=== PATIENT | female | born 2000 | race Caucasian/White ===

== ENCOUNTER 2021-12-21 18:45 | Emergency (ER) | payer OTHER, SELFPAY ==
--- NOTE | ~2021-12-21 | XR_ITS ---
EXAMINATION: XR foot RT min 3V DATE: 12/21/2021 19:10 INDICATION: Right foot pain TECHNIQUE: Dorsoplantar, lateral, and 2 oblique views of the right foot were obtained. COMPARISON: None. FINDINGS: There is no fracture, dislocation, or subluxation. The bones, soft tissues, and joint space s are normal. IMPRESSION: 1. No acute osseous abnormality. Reviewed, dictated and finalized at location F.
[2021-12-21 19:02] VITALS: BP 134/78; PULSE 82; RESP 18; TEMP 36.3; O2SAT 100
--- NOTE | 2021-12-21 19:21 | ED.LOWEXIN ---
HPI - Extremity Injury (Lower) General Chief Complaint: Extremity Injury, Lower Stated Complaint: rt foot injury Time Seen by Provider: 12/21/21 19:10 Source: patient, RN notes reviewed and old records reviewed Mode of arrival: ambulatory Limitations: no limitations History of Present Illness HPI Narrative: 21-year-old female who presents to [facility] with complaints of injury to her right foot which occurred on Monday while playing soccer. Patient reports she was playing in a coed league and was stepped on by a male participant. Patient has bruising and swelling to the anterior right foot along the first metatarsal area. Patient has taken Tylenol and ibuprofen and has been applying ice to her foot. Continues to have pain especially with ambulation with mild pain at rest MD complaint: foot injury (right) Type of Injury: blunt Place: street/outdoors Severity: moderate Exacerbating factors: weight bearing Context: direct blow Associated symptoms: swelling and able to partially bear weight Treatments prior to arrival: cold therapy and NSAIDS Related Data Home Medications Medication Instructions Recorded Confirmed No Home Medications 12/21/21 12/21/21 Allergies Allergy/AdvReac Type Severity Reaction Status Date / Time No Known Allergies Allergy Verified 12/21/21 19:12 Review of Systems Review of Systems: CONSTITUTIONAL: Denies fever, chills, or sweats. EYES: Denies visual changes, redness, or discharge. ENT: Denies rhinorrhea, congestion, sore throat, or otalgia. CARDIOVASCULAR: Denies chest pain, palpitations, or edema. RESPIRATORY: Denies cough or dyspnea. GASTROINTESTINAL: Denies abdominal pain, nausea, vomiting, or diarrhea. GENITOURINARY: Denies dysuria or hematuria. SKIN: Denies rash or itching. MUSCULOSKELETAL: Denies back pain, positive for right foot pain with swelling and bruising, or myalgia. NEUROLOGIC: Denies headache, numbness, or weakness. PSYCHIATRIC: Denies anxiety or depression. All systems reviewed & are unremarkable except as noted in HPI and below [facility] Past Medical History Medical History (Updated 12/22/21 @ 00:21 by Malika Arzola NP) Hx of migraines Social History Social History (Updated 12/22/21 @ 00:21 by Malika Arzola NP) Smoking status: Never smoker Alcohol intake: current Alcohol use details: rare Substance use: never Living arrangements: with family Occupation/Education: student Gender identity (if verbalized by the patient): Female Exam Narrative: GENERAL: Well-appearing, well-nourished, and in no acute distress. HEAD: Normocephalic, atraumatic. EYES: PERRLA and EOMI.no epistaxis. Mucous membranes moist. TMs normal with good light reflex throat pink with no lesions or exudates no tonsillar swelling NECK: Supple. No lymphadenopathy CHEST: Clear to auscultation. No acute respiratory distress. [id number] on room air HEART: Regular rate and rhythm. No murmur heard. Normal peripheral pulses. ABDOMEN: Soft, nontender, nondistended, normal active bowel sounds. EXTREMITIES: Normal range of motion. No edema.Exception noted to right dorsal distal foot along 1st metatarsal with bruising and swelling present. strong pulses to right foot withsensation intact, pain with weight beaing SKIN: Warm, dry, no rash. NEURO: No focal deficits. Alert and oriented x3. Course Course Level of Care: Express Care Visit Vital Signs Vital signs: Vital Signs Temperature 36.3 C L 12/21/21 19:02 Pulse Rate 82 12/21/21 19:02 Respiratory Rate 18 12/21/21 19:02 Blood Pressure 134/78 12/21/21 19:02 Pulse Oximetry 100 12/21/21 19:02 Temperature 36.3 C L 12/21/21 19:02 Pulse Rate 82 12/21/21 19:02 Respiratory Rate 18 12/21/21 19:02 Blood Pressure 134/78 12/21/21 19:02 Pulse Oximetry 100 12/21/21 19:02 MDM - Extremity Injury (Lower) Differential Diagnosis Differential diagnosis: Likely ankle sprain and strain, fracture of toe and other (foot
== END 2021-12-21 19:50 | disposition home or self-care (01) ==
PROVIDERS: Emergency Provider Registered Nurse
DX: S90.31XA Contusion of right foot, initial encounter (principal); W50.0XXA Accidental hit or strike by another person, initial encounter; Y93.66 Activity, soccer
CPT/HCPCS: 73630; 99213; G0463

== ENCOUNTER 2025-03-23 17:40 | Emergency (ER) | payer BC, SELFPAY ==
--- NOTE | 2025-03-23 17:42 | ED_ITS ---
HPI - Dental/Oral General Chief complaint: Dental/Oral Stated complaint: tooth infection Time Seen by Provider: 03/23/25 17:42 Source: patient Mode of arrival: ambulatory Limitations: no limitations History of Present Illness HPI Narrative: Patient is a 24-year-old female who presents with left upper dental pain. Patient had decision ointment 3 days ago and was told she needed a root canal. Since then she has had increased pain along with fever and facial swelling and is concerned for infection. Patient has been alternating Tylenol and ibuprofen and icing face. Patient is going to call dentist in the morning. Root canal is set for April 18 Related Data Home Medications ?Medication ?Instructions ?Recorded ?Confirmed ?Last Taken ?Type rimegepant 75 mg disintegrating mg 03/23/25 Unknown History tablet (Nurtec ODT) Allergies Allergy/AdvReac Type Severity Reaction Status Date / Time No Known Allergies Allergy Verified 03/23/25 17:43 Review of Systems 2 Review of Systems: All systems reviewed & are unremarkable except as noted in HPI and below Constitutional: Constitutional: Denies body ache(s), Denies fever(s), Denies headache(s), Denies malaise and Denies weakness Eyes: Eyes: Denies loss of vision ENT: Denies otalgia, Reports facial pain (jaw), Denies headache(s), Denies nasal discharge, Denies sinus pain and Denies sore throat Cardiovascular: Cardiovascular: Denies chest pain, Denies irregular heart rhythm and Denies dyspnea Respiratory: Respiratory: Denies dyspnea Gastrointestinal: Gastrointestinal: Denies abdominal pain, Denies melena, Denies hematochezia, Denies diarrhea, Denies nausea and Denies vomiting Musculoskeletal: Musculoskeletal: Denies back pain, Denies myalgias and Denies arthralgias Integumentary/Breasts: Skin/Breast: Denies pruritus and Denies rash Neurologic: Denies headache(s), Denies loss of vision and Denies weakness Psychiatric: Psychiatric: Reports no additional psychiatric complaints PMFSH Past Medical History Medical History Hx of migraines Social History Social History Smoking status: Never smoker Alcohol intake: current Alcohol use details: rare Substance use: never Living arrangements: with family Occupation/Education: student Gender identity (if verbalized by the patient): Female Comments At time of signature, agree with nursing past medical, surgical, social and family history. There is no relevant family history pertinent to the presenting complaint. Exam 2 Const: General: cooperative, healthy appearing, comfortable, no acute distress and well nourished Nutritional Appearance: well nourished O rientation/consciousness: patient oriented x3 Limitations: no limitations HENMT: Head: normal to inspection, normocephalic and atraumatic Ears: h earing grossly normal bilaterally, external ears normal, TM's normal bilaterally and mastoids normal bilaterally Face/Nose/Sinus: Normal external nose present, normal facial exam and face symmetric Face and sinus: normal facial exam and face symmetric Mouth: Yes Normal oral and palatal mucosa present, Yes lip normal, Yes tongue normal, Yes Normal salivary glands and ducts present and Yes moist mucous membranes Teeth and gingiva: dentition normal and abnormal tooth and associated gingiva upper left first molar tender and with associated gingival edema Teeth image: 1. Tenderness on tooth, needing root canal. Other: The tooth in question is very carious and the gum is swollen and tender around it. There is no facial swelling, cervical or submandibular lymphadenopathy. The patient appears uncomfortable and in pain. Eyes: General: appearance normal, both eyes and all related structures A lignment and Position: alignment normal and position normal Periorbital: p eriorbital findings normal Eyelids: eyelids normal Pupils: Equal, round and reactive pupils present EOM: EOMs intact bilaterally Neck: Neck: normal visual inspection, full ROM, no lymphadenopathy and supple Chest: Chest palpation & inspection: normal inspection of the chest Resp: Effort & Inspection: normal respiratory effort and able to speak in complete sentences Auscultation: clear to auscultation bilaterally Cardio: Rate: regular rate Rhythm: regular rhythm Heart sounds: S1 normal heart sound present and S2 normal heart sound present GI: Inspection: normal to inspection Skin: General skin exam: normal color and no rashes or lesions noted Neuro: General: patient oriented x3 and moves all extremities Cranial nerves: Yes Equal, round and reactive pupils present Speech: normal speech Gait exam (Neuro): Normal gait present Extrem: General: normal to inspection, full ROM and no edema Psych: Appearance: grossly normal and well kempt Mental Status: mental status grossly normal Speech and movement: Normal speech and movement present Affect: normal affect Attitude: cooperative Thought process: Normal thought process present Course Course Emergency Course: Patient is aware of diagnosis, understands and agrees to treatment plan. Anticipatory guidance given. Patient agrees to follow-up as directed and is aware of reasons to seek care at the emergency department. Portions of this record may have been created with voice recognition software Level of Care: Express Care Visit Vital Signs Vital signs: Vital Signs Temperature 35.9 C L 03/23/25 17:53 Pulse Rate 98 03/23/25 17:53 Respiratory Rate 18 03/23/25 17:53 Blood Pressure 109/78 03/23/25 17:53 Pulse Oximetry 98 03/23/25 17:53 Oxygen Delivery Room Air 03/23/25 17:53 Temperature 35.9 C L 03/23/25 17:53 Pulse Rate 98 03/23/25 17:53 Respiratory Rate 18 03/23/25 17:53 Blood Pressure 109/78 03/23/25 17:53 Pulse Oximetry 98 03/23/25 17:53 Oxygen Delivery Room Air 03/23/25 17:53 Reviewed MDM - Dental/Oral MDM Narrative Medical decision making narrative: Patients pain and complaint coupled with physical findings are consistant with dentalgia. There are no focal signs of space occupying lesions that are compromising to the airway; no dysphagia, odynophagia, dysphonia, or dyspnea. No uvular deviation or soft palate edema. Patient is non-toxic appearing. The floor of the mouth is soft with no signs of Conner's Angina; no induration below mandible, no neck pain. Patient is without trismus or drooling and able to swallow secretions. Patient is felt appropriate for discharge home with dental follow up. Patient is breast-feeding and will prescribe Augmentin as it is safe for Differential Diagnosis Differential diagnosis: Likely dental caries, toothache and dental abscess Medical Records Attestation: I reviewed the patient's medical records. Discharge Plan Discharge Clinical Impression: Dental abscess Patient Disposition: Home Condition: Stable Instructions: Dental Abscess (ED) Additional Instructions: Take antibiotic until it's gone. Brushing teeth at least twice daily with gentle flossing. Avoid temperature extremes---when you eat. Salt gargle to rinse your mouth after every meal You may apply ice to the face to reduce pain/swelling. For pain, you may take: Tylenol 650-1000mg by mouth every 4-6 hours. Do not exceed 4000mg in 24 hours. Advil (Ibuprofen) 600 mg by mouth every 6 hours. Do not exceed 2400mg in 24 hours. Also, recommend regular dental check up one-two times a year to prevent tooth decay and other periodontal disease. Follow-up with the dentist as soon as possible--see the list provided Patient Language: Slovenian Prescriptions: New amoxicillin-pot clavulanate 875-125 mg tablet 1 tablet PO Q12H 14 Days Qty: 28 0RF No Action Nurtec ODT 75 mg tablet,disintegrating Follow-up/Referrals: Lizzy,Ara Browning NP [Primary Care Provider] - Stand Alone Forms: Work/School Release IP Time of Disposition: 18:03
--- OUTSIDE RECORDS SUMMARY | 2025-03-23 17:43 | XMS_ITS | Clinical Summary ---
Author Organization [facility] Address [facility] [place] [address] Care Team Providers Care Nurse Intern Name Role Phone Ara Ball Primary Care Provider [phone] Allergies Active Allergy Reactions Criticality Noted Date Comments Dhea Other (see comment) 10/28/2016 hemiplegic migraine Flavoring Agent Headache Medium 01/10/2022 Sumatriptan Other (see comment) Low 10/28/2016 Medications rimegepant (NURTEC) 75 MG disintegrating tabletIndications:O ther migraine with status migrainosus, intractable Take 1 table at onset of migraine (max dose 1 tab/24 hours) 16 tablet 3 3 Active Active Problems Problem Noted Date Diagnosed Date Adverse effect of vaccine, subsequent encounter 11/13/2020 Hemiplegic migraine without status migrainosus, not intractable 11/07/2016 Family history of long QT syndrome 11/19/2015 Abnormal finding on MRI of brain 11/01/2012 Resolved Problems Problem Noted Date Diagnosed Date Resolved Date Myocarditis ([facility]) 11/09/2020 01/10/2022 Migraine headache 09/04/2013 01/10/2022 Transient alteration of awareness 09/04/2013 01/10/2022 Migraine without aura and wi thout status migrainosus, not intractable 10/29/2012 01/10/2022 Encounters Date Type Department Care Team Description 03/11/2025 Telephone [facility] Family and Sports Medicine - [place] [facility] [place] [address] Ara Ball APNP COVID-19 02/25/2025 Scan [facility] SRV[facility] Scanned, [facility] 02/24/2025 Scan [facility] INFO SRVCS Scanned, Doc [facility] 01/13/2025 Scan [facility] INFO SRVCS Scanned, Doc [facility] 01/07/2025 Scan [facility] INFO SRVCS Scanned, Doc [facility] 01/03/2025 Scan [facility] INFO SRVCS Scanned, Doc [facility] from Last 3 Months Immunizations Immunization Administration Dates Next Due Flucelvax 6 Months+ (Prefilled Syringe) 07/31/20 19 Influenza (Generic) 07/09/2020,05/28/2020 MODERNA COVID-19 (12+) MRNA, LNP-S, PF, 100 MCG/ 0.5 ML DOSE 11/04/2020,10/07/2020 Tdap (Adacel) 01/10/2022 Family History Medical History Relation Comments None Father Breast Cancer Maternal Grandmother None Mother Relation Status Comments Father Maternal Grandmother Mother Social History Tobacco Use Types Packs/Day Years Used Date Smoking Tobacco: Never Smokeless Tobacco: Never Tobacco Cessation:Counseling Given: No Alcohol Use Standard Drinks/Week Comments No 0 (1 standard drink = 0.6 oz pur e alcohol) AUDIT-C Answer Date Recorded Frequency of Alcohol Consumption Never 08/08/2018 Average Number of Drinks Not on file Frequency of Binge Drinking Not on file 07/28 PHQ-2 Answer Date Recorded Patient Health Questionnaire-2 Score 0 03/14/2023 Comments No Sex and Gender Information Value Date Recorded Sex Assigned at Not on file Legal Sex Female 1:53 AM [place] MAN Gender Identity Not on file Sexual Orientation Not on file Last Filed Vital Signs Vital Sign Reading Time Taken Comments Blood Pressure 129/86 03/14/2023 8:45 AM CDT Pulse 66 03/14/2023 8:45 AM CDT Temperature 36.6 C (97.9 F) 03/14/2023 8:45 AM CDT Respiratory Rate 21 03/14/2023 8:45 AM CDT Oxygen Saturation 100% 03/14/2023 8:45 AM CDT Inhaled Oxygen Concentration - - Weight 63.5 kg (140 lb) 03/14/2023 8:45 AM CDT Height 157.5 cm (5' 2) 03/14/2023 8:45 AM CDT Body Mass Index 25.61 03/14/2023 8:45 AM CDT Plan of Treatment Upcoming Encounters Date Type Department Care Team (Late st Contact Info) Description 04/11/2025 9:00 AM CDT Office Visit [facility] Family and Sports Medicine - [place] [address] [place] [address] Ara Ball APNP [address] [place] [address] Health Maintenance Due Date Last Done Comments HPV Vaccines (1 - 3-dose series) 2014 Hepatitis B Vaccines (1 of 3 - 19+ 3-dose series) 2018 Annual Physical 03/14/2024 03/14/2023, 01/10/2022, 11/13/2020 COVID-19 Vaccine (3 - 2023-2 5 season) 2024 11/04/2020, 10/07/2020 Cervical Cancer Screening Pa p Smear (Age 21 to 29) Every 3 Years 06/30/2024 06/30/2021 Cervical Cancer Screening 06/30/2024 PHQ-2 (Physician [place]) 08/28/2024 03/14/2023 DTaP, Tdap and Td Vaccines ( 2 - Td or Tdap) 01/11/2032 01/10/2022 Hepatitis C Completed 01/10/2022 Meningococcal B Vaccine Aged Out No l onger eligible based on patient's age to complete this topic Meningococcal Vaccine Aged Out No sb chanda eligible based on patient's age to complete this topic Pneumococcal Vaccine: Pediatrics (0 to 5 Years) and At-Risk Patients (6 to 49 Years) Aged Out No longer eligible b ased on patient's age to complete this topic RSV Immunizations Under 20 Months Aged Out No longer eligible b ased on patient's age to complete this topic Procedures Procedure Name Priority Date/Time Associated Diagnosis Comments HEPATITIS C ANTIBODY Routine 01/10/2022 3:22 PM CDT Need for hepatitis C screening test OUTSIDE [facility] CERV/VAG INTERPRET (PAP) (SCAN ORDER) 06/30/2021 from Last 3 Months or Most Recently Relevant to Health Maintenance Results * HEPATITIS C ANTIBODY (01/10/2022 3:22 PM CDT) HEPATITIS C AB NON-REACTI VE NON-REACT LENA 01/11/2022 3:11 PM CDT [facility] Comment: ANTIBODIES TO HCV NOT DETECTED. DOES NOT EXCLUDE THE POSSIBILITY OF EXPOSURE TO HCV. 01/10/2022 3:22 PM CDT [facility] Final Result [facility] [address] [place] [address], [id number] * PAP SMEAR (06/30/2021) 06/30/2021 Narrative 06/30/2021 Ordered by an unspecified provider. us Documents Scanned SCANNING Final Result from Last 3 Months or Most Recently Relevant to Health Maintenance Insurance Care Teams Nurse Intern Relationship Specialty Start Date End Date Ara Ball APNP [address] [place] [address] PCP - General NURSE PRACTITIONER 11/10/20
--- OUTSIDE RECORDS SUMMARY | 2025-03-23 17:44 | XMS_ITS | Clinical Summary ---
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 Patient has never taken this for that reason. Sumatriptan Other (See comments) Low 10/28/2016 Medications vit D3-vit E-znxuhafab-ur ps [id number] dbzh-dbh-zb-mg tablet Take by mouth Active vit 82-zaxm-rqjty- dha 27mg iron- 800 mcg-250 mg capsule Take by mouth Active vitamin A04-lhvqn acid 0.5-1 mg tablet Take by mouth daily Active acetaminophen (TYLENOL) 325 mg tablet Take 2 tablets (650 mg total) by mouth every 6 (six) hours as needed for pain 90 tablet 03/05/20 25 Active ibuprofen (ADVIL,MOTRIN) 600 mg tabletIndicati ons:Cramps Take 1 tablet (600 mg total) by mouth every 6 (six) hours as needed for pain 60 tablet 03/05/20 25 Active rimegepant (NURTEC ODT) tablet,disinte grating Take 1 tablet (75 mg total) by mouth daily 60 tablet 1 03/05/20 25 Active rimegepant (NURTEC ODT) tablet,disinte grating Take 1 table at onset of migraine (max dose 1 tab/24 hours) 03/14/20 23 025 Discontinued(Th erapy completed) SUMAtriptan (IMITREX) 50 mg tabletIndicati ons:Migraine Take 1 tablet (50 mg total) by mouth once as needed for migraine May repeat dose once in 2 hours if no relief. Do not exceed 2 doses in 24 hours. 9 tablet 5 07/31/20 24 025 Discontinued( erapy completed) magnesium gluconate 200 mg tabletIndicati ons:hypomagnes emia Take 1 tablet (200 mg total) by mouth daily 025 Discontinued(St op Taking at Discharge) acetaminophen (TYLENOL) 500 mg tablet Take 1 tablet (500 mg total) by mouth every 6 (six) hours as needed for pain 025 Discontinued acetaminophen (TYLENOL) 500 mg tablet Take 2 tablets (1,000 mg total) by mouth every 6 (six) hours as needed for pain 60 tablet 02/27/20 25 025 Discontinued(St op Taking at Discharge) Active Problems Problem Noted Date Diagnosed Date care following vaginal delivery 03/04 Overview (03/05/2025): 03/04/25, PPD#1 (JF) S/p vaginal delivery complicated by uterine atony Received: IM methergine, IM Hemabate, IV TXA, rectal misoprostol, pitocin x 2 bags EBL 623 cc, Hgb 10.8 > 10.2 O+, Rubella immune Vital signs reviewed and notable for MR BP, likely r/t pushing efforts however now meets criteria for Pre eclampsia without severe features - see other problem Ambulating, tolerating PO, voiding spontaneously, lochia moderate, pain controlled MOF: - is tongue tie, working with and peds MOC: undecided - for further conversation VTE ppx: The patient has the following MAJOR risk factors none and the following MINOR risk factors BMI 30-39 and preeclampsia. enoxaparin 40 mg daily ordered for VTE prophylaxis. Mood: stable Migraines: plan for Nurtec with discharge. Has appointment with neuro in March. Reglan/benadryl working well with caffeine. Denies headache currently Dispo: Continue routine care. 03/05/25, PPD#2 (CZ) S/p vaginal delivery complicated by uterine atony Received: IM methergine, IM Hemabate, IV TXA, rectal misoprostol, pitocin x 2 bags EBL 623 cc, Hgb 10.8 > 10.2>10.2 O+, Rubella immune Vital signs reviewed and notable for MR BP, likely r/t pushing efforts however now meets criteria for Pre eclampsia without severe features - see other problem Ambulating, tolerating PO, voiding spontaneously, lochia moderate, pain controlled MOF: - infant is tongue tie- clipped by peds. working with MOC: undecided - for further conversation VTE ppx: The patient has the following MAJOR risk factors none and the following MINOR risk factors BMI 30-39 and preeclampsia. enoxaparin 40 mg daily ordered for VTE prophylaxis. Mood: stable Migraines: plan for Nurtec with discharge. Has appointment with neuro in March. Reglan/benadryl working well with caffeine. Denies headache currently Dispo: Discharge home in stable condition Discharge teaching provided including PPD/PPA, pre-e, and bleeding/clotting precautions. Follow-up: BP check Monday 6 week visit with Lita. Pre-eclampsia in period 03/04/2025 Overview (03/05/2025): 03/04/2025, PPD#1 (DARLENE): Criteria for pre eclampsia met based on out patient MR BP and Pr/Cr 0.33, second MR BP yesterday 03/03 Labs: LFT: 20/10 > 47/15, Creatinine 0.84, Platelets 209 - ordered daily Denies headache, visual changes and RUQ pain Continue close monitoring 03/05/2025 PPD#2 (CZ) VSS, afebrile Labs: LFT: Improved today. Asymptomatic BP check planned for Monday with repeat labs. Encounter for elective induction of labor 2024 Overview (03/05/2025): 03/03/2025, 0750 (DARLENE): Ryder Bernard 24 y.o. at 39w 1d here for elective induction of labor O+/Immune Vitals signs reviewed and normal gHTN? Vs Pre E without SF? Was admitted for BP monitoring last week secondary to persistent headache and elevated home BPs. Has had one documented MR BP. Labs: pr/cr 0.3, all other labs normal Hgb: 10.8 GBS negative SVE: 8/80/-1, swelling noted - IV diphenhydramine and TUMS ordered FHT Cat 1 Induction was started with buccal misoprostol and transitioned to pitocin IUPC placed with consent Pain management - s/p epidural, comfortable Continue IOL 39 weeks gestation of 03/02/2025 Hypertension affecting , third trimeste r 02/25/2025 Overview (02/26/2025): 02/25/2025, 0830 (DARLENE): Ryder Bernard 24 y.o. at 38w 2d who is admitted for blood pressure observation with possibility of induction of labor O+/Immune Vitals signs reviewed and notable for MR BP x 1 Hgb: 11.2 GBS negative SVE: deferred FHT Cat 1 - NST q shift Plan: Monitor BPs Labs: LFTs 32/11; Creatinine 0.78; Plts 268; Pr/Cr 0.34 Monitor headache - improved with tylenol Would plan for IOL with miso if has another MR BP 02/26/2025 1030 (CZ) VSS, afebrile Only 1 MR BP all others WNL Reactive NST Reviewed labs - all normal except PCR. Headache improves with medication but doesn't totally go away. Fioricet ordered. Will order for discharge if it helps. Reviewed how to take a proper blood pressure with repeat blood pressures in 15 mins if 140/90 or higher. Reviewed severe blood pressure ranges. Reviewed severe pre-eclampsia warning signs and when to present to [facility] with concerns. Plan to discharge home in stable condition. Discharge teaching reviewed with strict return precautions. Chronic nonintractable headache 02/25/2025 Supervision of normal first , antepartu m 07/31/2024 Myocarditis 11/09/2020 Migraine with aura 05/29/2017 Hemiplegic migraine 05/29/2017 Encounters Date Type Department Care Team Description 03/21/2025 Telephone [facility] [address] [place] [phone] Grady Willis MD 03/21/2025 Telephone [facility] [address] [place] [phone] Grady Willis MD 03/10/2025 Results Follow-Up [facility] [address] [place] [phone] Lynette Edwards, KAM CBC without differential, Comprehensive metabolic panel, eGFR 03/07/2025 11:45 AM CDT Clinical Support [facility] [address] [place] [phone] Hypertension affecting , third trimester (Primary Dx) 03/07/2025 9:50 AM CDT Lab [facility] Building [address] [place] [phone] Pre-eclampsia in period 03/03/2025 4:01 AM CDT Anesthesia Event [address] [address] Castillo Schuler, Malika Berkowitz, CHUCK 03/02/2025 8:47 PM CDT - 03/05/2025 1:04 PM CDT Hospital Encounter [address] [address] Kirsten Thomas MD Kelsey, Sekou Khary, MD Encounter for elective induction of labor (Primary Dx); Pre-eclampsia in period; care following vaginal delivery [Z39.2] Discharge Disposition: Discharge to home or self care 02/25/2025 3:13 PM CDT - 02/26/2025 12:32 PM CDT Hospital Encounter [address] [address] Blanca Preston MD Chronic nonintractable headache, unspecified headache type (Primary Dx); Hypertension affecting in third trimester; 38 weeks gestation of Discharge Disposition: Discharge to home or self care 02/25/2025 Telephone [facility] [address] [place] [phone] Nallely Beebe CNM blood pressures 02/24/2025 5:32 PM CDT - 02/24/2025 6:44 PM CDT Hospital Encounter [facility] [address] [place] [phone] Kirsten Thomas MD Discharge Disposition: Discharge to home or self care 02/24/2025 11:25 AM CDT Lab [facility] [address] [place] [phone] Swelling 02/24/2025 10:45 AM CDT Office Visit [facility] [address] [place] [phone] Lynette Edwards CNM Supervision of normal first , antepartum (Primary Dx); Swelling 02/17/2025 3:45 PM CDT Office Visit [facility] [address] [place] [phone] Lynette Edwards CNM Supervision of normal first , antepartum (Primary Dx) 02/17/2025 Results Follow-Up [facility] [address] [place] [phone] Nallely Beebe CNM Group B streptococcus PCR Vaginal/Rectal 02/14/2025 3:49 PM CDT - 02/14/2025 11:59 PM CDT Hospital Encounter [facility] Lab [address] [place] [phone] Third trimester Discharge Disposition: Discharge to home or self care 02/14/2025 1:30 PM CDT Office Visit [facility] [address] [place] [phone] Nallely Beebe CNM Third trimester (Primary Dx) 02/14/2025 1:00 PM CDT Ancillary Procedure [facility] [address] [place] [phone] Uterine size-date discrepancy in third trimester 02/03/2025 Results Follow-Up [facility] [address] [place] [phone] Nallely Beebe CNM Protein / creatinine ratio, urine, random, Comprehensive metabolic panel, CBC without differential, eGFR 01/31/2025 2:00 PM CDT Lab [facility] [address] [place] [phone] 34 weeks gestation of 01/31/2025 1:30 PM CDT Office Visit [facility] [address] [place] [phone] Nallely Beebe CNM 34 weeks gestation of (Primary Dx) 01/31/2025 Telephone [facility] [address] [place] [phone] Nallely Beebe CNM 01/13/2025 10:15 AM CDT Office Visit [facility] [address] [place] [phone] Nallely Beebe CNM 32 weeks gestation of (Primary Dx) 01/09/2025 Results Follow-Up [facility] [address] [place] [phone] Kirsten Thomas MD N. gonorrhoeae/C. trachomatis Amplification Endocervical, Urine culture Urine 01/08/2025 Results Follow-Up [facility] [address] [place] [address] Roger Preston MD GTT 100gm fasting gestational diagnostic, GTT 100gm 1hr gestational diagnostic, GTT 100gm 2hr gestational diagnostic, GTT 100gm 3hr gestational diagnostic 01/07/2025 10:04 AM CDT - 01/07/2025 12:30 PM CDT Emergency [facility] Emergency Department [address] [place] [address] Kirsten Thomas MD Low back pain during in third trimester (Primary Dx) Discharge Disposition: Discharge to home or self care 01/07/2025 Documentation [facility] [address] [place] [phone] Nallely Beebe CNM 01/06/2025 9:25 AM CDT Lab [facility] [address] [place] [phone] Abnormal GTT (glucose tolerance test) 01/03/2025 2:15 PM CDT Office Visit [facility] [address] [place] [address] [phone] Nallely Beebe CNM Third trimester (Primary Dx) 12/24/2024 Results Follow-Up [facility] [address] [place] [address] [phone] Roger Preston MD CBC without differential, RPR Blood, HIV 1/2 Antibody plus p24 Antigen Blood, GTT 50gm 1hr gestational screen from Last 3 Months Immunizations Immunization Administration Dates Next Due Influenza, Unspecified 05/28/2020 Tdap 01/03/2025 Medical History Medical History Date Comments Hemiplegic migraine 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 cine- seen and cleared by cardiology Family History Medical History Relation Name Comments Long QT syndrome Brother Breast cancer Maternal Grandmother Long QT syndrome Mother Rheum arthritis Mother Colon cancer Neg Hx Osteoarthritis Neg Hx Uterine cancer Neg Hx Relation Name Status Comments Brother Maternal Grandmother Mother Social History Tobacco Use Types Packs/Day Years Used Date Smoking Tobacco: Never Smokeless Tobacco: Never Tobacco Cessation:Counseling Given: Not Answered Social Connection and Isolat ion Panel [NHANES] Answer Date Recorded In a typical week, how many times do you talk on the phone with family, friends, or neighbors? More than three times a week 03/02/2025 How often do you get togethe r with friends or relatives? Once a week 03/02/2025 Attends Sikhism Services Not on file 03/02 Active Member of Clubs or Organizations Not on f ile 03/02/2025 Attends Club or Organization Meetings Not on isabelle e 03/02/2025 Marital Status Not on file 03/02/2025 AUDIT-C Answer Date Recorded Q1: How often do you have a drink containing alcohol? Never 02/25/2025 Q2: How many drinks containi ng alcohol do you have on a typical day when you are drinking? Patient does not drink Q3: How often do you have si x or more drinks on one occasion? Never 02/25/2025 Overall Financial Resource Strain (CARDIA) Answe r Date Recorded How hard is it for you to pa y for the very basics like food, housing, medical care, and heating? Not very hard 03/02/2025 PHQ-2 Answer Date Recorded PHQ-2 Total Score (If total score is 3 or more points, staff should administer the PHQ-9) 0 03/02/2025 [facility] - Occupational Stress Questionnaire Answer Date Recorded Do you feel stress - tense, restless, nervous, or anxious, or unable to sleep at night because your mind is troubled all the time - these days? Not at all 03/02/2025 Hunger Vital Sign Answer Date Recorded Within the past 12 months, y ou worried that your food would run out before you got the money to buy more. Never true 03/02/20 25 Within the past 12 months, t he food you bought just didn't last and you didn't have money to get more. Never true 03/02/2025 PRAPARE - Transportation Answer Date Re corded In the past 12 months, has l ack of transportation kept you from medical appointments or from getting medications? No 01/2025 In the past 12 months, has l ack of transportation kept you from meetings, work, or from getting things needed for daily living? No 03/02/2025 Remington Depression Scale Answer Date Recorded Remington Depression Scale Total 5 03/04/2025 The thought of harming myself has occurred to me . Never 03/04/2025 PHQ-9 Answer Date Recorded PHQ-9 Total Score 0 03/02/2025 Housing Stability Vital Sign Answer Wilber e Recorded In the last 12 months, was t here a time when you were not able to pay the mortgage or rent on time? No 03/02/2025 Number of Times Moved in the Last Year Not on fi le 03/02/2025 At any time in the past [address] [facility], were you homeless or living in a correction (including now)? No 03/02/2025 Personal Safety Answer Date Recorded Have you ever been in or are you currently in a harmful physical or emotional relationship or is someone making you feel afraid or unsafe? Denies 03/02/2025 Comments No Sex and Gender Information Value Date Recorded Sex Assigned at Not on file Legal Sex Female 11:12 AM CDT Gender Identity Not on file Sexual Orientation Not on file Obstetrics History Para Term AB IAB SAB Ectopic Multiple Livin g Live Births 1 1 1 0 1 1 Date Outcome GA Total Labor Labor/2nd/3rd Weight Sex Type Anes PTL Adriane A1 A5 Name Clin 2024 Term 39w 1d 2h 20m 2h 13m/0h 07m 3.22 kg (7 lb 1.6 oz) F Vagina l Epidur al N Livin g 8 9 Benne tt Nataliia Mesa, CNM Complications:Post He morrhage Delivery Location:[facility] ([facility] Summary Episode Dates Number of Fetuses Estimated Date of Delivery 07/31/2024 - Present (03/23/2025) 1 03/09/2025 (set by Christal Roberto, RADAMES on 07/31/2024 based on Last Menstrual Period on 06/02/2024) Dating Summary Based On [place] Diff Last Menstrual Period on 06/02/2024 03/09/2025 Working Ultrasound on 07/31/2024 03/06/2025 +3d GA:8w6d Overview and Plan :Girard Support person:Hafsa Bernard Delivery Plans Planned delivery method:Vaginal Planned delivery location:[facility] Overview Surveillance of EDC by LMP = 8 week US O+/I/-/-, HIV And RPR NR Genetics: Anatomy: 20 weeks GCT: 138, 3 hr passed 3rd trim CBC/HIV/RPR Tdap: 27+ weeks GBS: negative Social Barriers: none Mode of feeding: Method of contraception: Delivery Planning: TBD 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 See encounter summary. 5 38w3d Inpatient data not displayed here. See encounter summary. 5 39w1d Inpatient data not displayed here. See encounter summary. Notes Progress Notes - Clinical [place] pport - 03/07/2025 - GA:39w1d 03/07/2025 - 39w1d - Christal Xiao RN Blood Pressure Check Visit Ryder Bernard is here today for a blood pressure check. She is feeling well. She denies/endorses headache, changes in vision, RUQ pain. Diagnosis: HTN Delivery date: 03/03/25 Plan for follow up: 6 week PP Discussed with: Dr. Mohan Roberto RN Progress Notes - Hospital En counter - 03/05/2025 - GA:39w1d 03/04/2025 - 39w1d - Nallely Beebe CNM Images from the original note were not included. Post Progress Note Admission Date: 03/02/2025 SUBJECTIVE Ryder Bernard is a 24 y.o. day 1 s/p Vaginal. Denies headache, visual changes and RUQ pain Pain: Controlled Bleeding: lochia minimal Oral Intake: taking regular diet Voiding: without difficulty Bowel functiont: No concerns Ambulating: yes Mood: stable OBJECTIVE Vitals: BP 115/77 Pulse 82 Temp 36.8 C (98.2 F) (Oral) Resp 16 LMP 06/02/2024 SpO2 96% Yes Physical Exam General: No acute distress. Appears stated age and cooperative. Lungs: Non-labored. Abdomen: Soft, non-tender. Fundus below umbilicus. Incision: N/a Extremities: Warm and well-perfused. No bilateral lower extremity edema or calf tenderness. Pelvic: Deferred. Neurologic: Alert and oriented x4, non-focal Lab Review: Labs: Lab Results Component Value Date ABORH O Positive 03/02/2025 IDCOOMB Negative ABSC 03/02/2025 [id number] Nonreactive 12/20/2024 LABRPR Nonreactive 03/02/2025 RUBELIGG Reactive 07/31/2024 HEPBSAG Nonreactive 07/31/2024 GBS Negative 02/14/2025 Hematology Lab History Latest Ref Rng & Units 02/24/2025 11:28 02/25/2025 16:12 03/02/2025 21:26 03/04/2025 07:38 Labs - Hematology WBC 3.80 - 9.90 K/cumm 15.73 18.83 16.09 21.06 Total Hb, POC 11.9 - 15.5 g/dL 11.7 11.2 10.8 10.2 Hct 35.6 - 45.5 % 35.1 33.4 31.7 30.9 Plt 150 - 400 K/cumm 285 268 266 209 Neutrophil abs 1.50 - 6.50 K/cumm 14.88 11.64 Lymphocytes, abs 0.80 - 3.30 K/cumm 2.59 3.07 Chemistry Lab Results Component Value Date SODIUM 138 03/04/2025 POTASSIUM 4.4 03/04/2025 CHLORIDE 107 03/04/2025 CO2 20 (L) 03/04/2025 ANIONGAP 11 03/04/2025 BUNSER 9 03/04/2025 CREATININE 0.84 03/04/2025 GLUCOSE 76 03/04/2025 URICACID 6.0 02/24/2025 CALCIUM 9.1 03/04/2025 BILITOT <0.2 03/04/2025 ALBUMIN 3.2 (L) 03/04/2025 GFRNAA >90 03/04/2025 ALKPHOS 138 (H) 03/04/2025 AST 47 (H) 03/04/2025 ALT 15 03/04/2025 PHOS 3.6 11/08/2020 MAGNESIUM 2.2 11/08/2020 ASSESSMENT/PLAN Ryder Bernard is a 24 y.o. Problem Care Following Vaginal Delivery 03/04/25, PPD#1 (JF) S/p vaginal delivery complicated by uterine atony Received: IM methergine, IM Hemabate, IV TXA, rectal misoprostol, pitocin x 2 bags EBL 623 cc, Hgb 10.8 > 10.2 O+, Rubella immune Vital signs reviewed and notable for MR BP, likely r/t pushing efforts however now meets criteria for Pre eclampsia without severe features - see other problem Ambulating, tolerating PO, voiding spontaneously, lochia moderate, pain controlled MOF: - is tongue tie, working with and peds MOC: undecided - for further conversation VTE ppx: The patient has the following MAJOR risk factors none and the following MINOR risk factors BMI 30-39 and preeclampsia. enoxaparin 40 mg daily ordered for VTE prophylaxis. Mood: stable Migraines: plan for Nurtec with discharge. Has appointment with neuro in March. Reglan/benadryl working well with caffeine. Denies headache currently Dispo: Continue routine care. Pre-Eclampsia in Period 03/04/2025, PPD#1 (JF): Criteria for pre eclampsia met based on out patient MR BP and Pr/Cr 0.33, second MR BP yesterday 03/03 Labs: LFT: 20/10 > 47/15, Creatinine 0.84, Platelets 209 - ordered daily Denies headache, visual changes and RUQ pain Continue close monitoring Nallely Beebe CNM 03/04/25 Progress Notes - Hospital En counter - 02/24/2025 - GA:38w1d 02/24/2025 - 38w1d - Nallely Beebe CNM Pt seen in office. Now here for BP monitoring. Progress Notes - Office Visi t - 02/24/2025 - GA:38w1d 02/24/2025 - 38w1d - Lynette Davenport i, CNM Return OB Visit 24 y.o. at 38w1d Pt reports significant swelling that makes her feet purple in the morning with white spots. Denies contractions, leaking of fluid and vaginal bleeding Endorses good movements Objective BP 116/84 Ht 154.9 cm (5' 1) Wt 180 lb (81.6 kg) LMP 06/02/2024 BMI 34.01 kg/m Body mass index is 34.01 kg/m . TW lb (17.2 kg) FHR 135 FH 38 SVE FT/50/-3 Assessment/Plan: -- pedial pulses WNL. No evidence of blood clots. -- PIH labs ordered -- Reviewed pre-eclampsia warning signs. 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 Reviewed (10/25) overall reassuring data, but limited, on PRN nurtec in RTC in 1wk Lynette Edwards CNM Cosigned by Roger Preston MD at 02/24/2025 12:09 PM CDT Progress Notes - Office Visi t - 02/17/2025 - GA:37w1d 02/17/2025 - 37w1d - Lynette Davenport i, CNM Return OB Visit 24 y.o. at 37w1d Pt is doing well and denies concerns. She would like to schedule an IOL but not until 41 weeks. Denies contractions, leaking of fluid and vaginal bleeding Endorses good movements Objective Ht 154.9 cm (5' 1) Wt 177 lb (80.3 kg) LMP 06/02/2024 BMI 33.44 kg/m Body mass index is 33.44 kg/m . TW lb (15.9 kg) FHR 135 FH 38 VSCAN vertex Assessment/Plan: -- Discussed IOL @ 41 weeks and increased risk of still after 40 weeks. Recommend NST @ 40 weeks and BPP/EDMUND @ 41 if scheduled later in the week. Patient agreeable to plan. 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 Reviewed (10/25) overall reassuring data, but limited, on PRN nurtec in RTC in 1wk Lynette Edwards CNM Cosigned by Roger Preston MD at 02/18/2025 8:16 AM CDT Progress Notes - Office Visi t - 02/14/2025 - GA:36w5d 02/14/2025 - 36w5d - Nallely Beebe CNM Return OB Visit 24 y.o. at 36w5d Pt reports heartburn Denies contractions, leaking of fluid and vaginal bleeding Endorses good movements Objective LMP 06/02/2024 There is no height or weight on file to calculate BMI. TW lb 12.8 oz (13.5 kg) Khadijah: EFW 50% AC 12% Normal fluid Vertex Assessment/Plan: -- reviewed EFW and AGA -- discussed spinning babies and ways to encourage optimal positioning -- discussed expectant management vs IOL, open to IOL after LAWRENCE -- reviewed PTL precautions, FKCs and when to present to [facility] Surveillance of *COLLEGE ADVISOR PATIENT* EDC by LMP = 8 week US Labs: O+/I/-/-, HIV and RPR NR Genetics: declines Anatomy: AGA (70%), complete Placenta: anterior GCT: 138 > passed 3 hr GTT 3rd trim:11.0/ NR/NR Tdap: 01/03 Flu: GBS: 02/14 Social Barriers: none Mode of feeding: breast Method of contraception: undecided, discussed progesterone only options Delivery Planning: Pain management: planning epidural Support: significant other - 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 Reviewed (10/25) overall reassuring data, but limited, on PRN nurtec in RTC in 1wk Nallely Beebe CNM Progress Notes - Office Visi t - 01/31/2025 - GA:34w5d 01/31/2025 - 34w5d - Nallely Beebe CNM Return OB Visit 24 y.o. at 34w5d Pt reports heartburn Denies contractions, leaking of fluid and vaginal bleeding Endorses good movements Objective BP 124/78 Ht 154.9 cm (5' 1) Wt 171 lb 12.8 oz (77.9 kg) LMP 06/02/2024 BMI 32.46 kg/m Body mass index is 32.46 kg/m . TW lb 12.8 oz (13.5 kg) FHT 158 FH 31 Exam: bilateral 1+ edema in LE and trace edema in hands Assessment/Plan: -- reviewed pre eclampsia precautions - PIH labs ordered for mild symptoms (swelling) -- discussed S<D - growth for next visit -- reviewed PTL precautions, FKCs and when to present to [facility] Surveillance of *COLLEGE ADVISOR PATIENT* EDC by LMP = 8 week US Labs: O+/I/-/-, HIV and RPR NR Genetics: declines Anatomy: AGA (70%), complete Placenta: anterior GCT: 138 > passed 3 hr GTT 3rd trim:11.0/ NR/NR Tdap: 01/03 Flu: GBS: 36 weeks, or sooner if early delivery indicated Social Barriers: none Mode of feeding: breast Method of contraception: undecided, discussed progesterone only options Delivery Planning: TBD Pain management: planning epidural Support: 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 Reviewed (10/25) overall reassuring data, but limited, on PRN nurtec in RTC in 2wks with Khadijah for S<D Nallely Beebe CNM Progress Notes - Office Visi t - 01/13/2025 - GA:32w1d 01/13/2025 - 32w1d - Nallely Beebe CNM Return OB Visit 24 y.o. at 32w1d Pt reports significant sciatica and back pain. Was seen on [facility] on 01/07 Denies contractions, leaking of fluid and vaginal bleeding Endorses good movements Objective BP 118/60 Ht 154.9 cm (5' 1) Wt 163 lb 9.6 oz (74.2 kg) LMP 06/02/2024 BMI 30.91 kg/m Body mass index is 30.91 kg/m . TW lb 9.6 oz (9.798 kg) FHT 140 FH 32 Assessment/Plan: -- reviewed 3 hr GTT, passed -- discussed relief measures for sciatica and back pain. 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 Reviewed (10/25) overall reassuring data, but limited, on PRN nurtec in RTC in 2wks Nallely Beebe CNM Progress Notes - Documentati on - 01/07/2025 - GA:31w2d 01/07/2025 - 31w2d - Nallely Beebe CNM Pt called through the exchange reporting painful contractions and left flank pain since yesterday afternoon around 1pm, after completing the 3 hr GTT. She has tried fluid hydration with 84 oz of water and tylenol without relief. Heating pads are helping. Denies lof and vb. Reports good movements. Discussed evaluation in [facility] for possible PTL, UTI, kidney stone vs watchful waiting this morning. Plans to hydrate and rest, if no improvement of symptoms will come in for evaluation. Nallely Beebe CNM Progress Notes - Office Visi t - 01/03/2025 - GA:30w5d 01/03/2025 - 30w5d - Nallely Beebe CNM Return OB Visit 24 y.o. at 30w5d Pt reports doing well overall Denies contractions, leaking of fluid and vaginal bleeding Endorses good movements Objective BP 112/64 Ht 154.9 cm (5' 1) Wt 160 lb 12.8 oz (72.9 kg) LMP 06/02/2024 BMI 30.38 kg/m Body mass index is 30.38 kg/m . TW lb 12.8 oz (8.528 kg) FHT 140 FH 30 Assessment/Plan: -- discussed failed GCT > 3 hr ordered, plans to complete before next visit -- reviewed PTL precautions, FKCs and when to present to [facility] Surveillance of *COLLEGE ADVISOR PATIENT* EDC by LMP = 8 week US Labs: O+/I/-/-, HIV and RPR NR Genetics: declines Anatomy: AGA (70%), complete Placenta: anterior GCT: 138 > 3hr ordered 3rd trim:11.0/ NR/NR Tdap: 01/03 Flu: GBS: 36 weeks, or sooner if early delivery indicated Social Barriers: none Mode of feeding: breast Method of contraception: undecided, discussed progesterone only options Delivery Planning: TBD Pain management: planning epidural 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 Reviewed (10/25) overall reassuring data, but limited, on PRN nurtec in RTC in 2wks Nallely Beebe CNM Progress Notes - Office Visi t - 12/20/2024 - GA:28w5d 12/20/2024 - wd - Nallely Beebe CNM Return OB Visit 24 y.o. at 28w5d Pt reports doing well overall, reports low back pain Denies contractions, leaking of fluid and vaginal bleeding Endorses good movements Objective BP 104/66 Ht 154.9 cm (5' 1) Wt 158 lb (71.7 kg) LMP 06/02/2024 BMI 29.85 kg/m Body mass index is 29.85 kg/m . TW lb (7.258 kg) FHT 140 FH 28 Assessment/Plan: -- reviewed 3T labs and GCT -- discussed relief measures for back pain -- reviewed PTL precautions, FKCs and when to present to [facility] Surveillance of *COLLEGE ADVISOR PATIENT* EDC by LMP = 8 week US Labs: O+/I/-/-, HIV and RPR NR Genetics: declines Anatomy: AGA (70%), complete Placenta: anterior GCT: in process 3rd trim: in process Tdap: 12/20 Flu: GBS: 36 weeks, or sooner if early delivery indicated Social Barriers: none Mode of feeding: breast Method of contraception: undecided, discussed progesterone only options Delivery Planning: TBD Pain management: planning epidural 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 Reviewed (10/25) overall reassuring data, but limited, on PRN nurtec in RTC in 4wks Nallely Beebe CNM Progress Notes - Office Visi t - 11/20/2024 - GA:24w3d 11/20/2024 - 3d - Roger Preston MD Return OB Visit 24 y.o. at 24w3d Patient reports no acute concerns Endorses active movement Denies vaginal bleeding, LOF or painful contractions Objective BP 110/60 Ht 154.9 cm (5' 1) Wt 155 lb 9.6 oz (70.6 kg) LMP 06/02/2024 BMI 29.40 kg/m Body mass index is 29.4 kg/m . TW lb 9.6 oz (6.169 kg) Heart Rate: 40 Assessment/Plan: Surveillance of -> COLLEGE ADVISOR PATIENT EDC by LMP = 8 week US Labs: O+/I/-/-, HIV and RPR NR Genetics: declines Anatomy: AGA (70%), complete Placenta: anterior GCT: 26-28 weeks 3rd trim CBC/HIV/RPR Tdap: 27+ weeks Flu: GBS: 36 weeks, or sooner if early delivery indicated Social Barriers: none Mode of feeding: breast Method of contraception: undecided, discussed progesterone only options Delivery Planning: TBD Pain management: planning epidural H/o Myocarditis due to COVD vaccine - (records reviewed) completely recovered and cleared by Cardiology Hx hemiplegic migraines: Nightly cyproheptadine prophylaxis, magnesium prophylaxis PRN Tylenol/caffeine Neurologist does not want her to use triptan therapy. Reviewed (10/25) overall reassuring data, but limited, on PRN nurtec in RTC in 4wks Roger Preston MD Progress Notes - Office Visi t - 10/25/2024 - GA:20w5d 10/25/2024 - - Galilea Thomas MD Return OB Visit 24 y.o. at 20w5d Has been going well from a BALLARD perspective, was taking nurtec PRN prior to No VB or LOF No obvious movement Objective BP 110/70 Ht 154.9 cm (5' 1) Wt 148 lb 9.6 oz (67.4 kg) LMP 06/02/2024 BMI 28.08 kg/m Body mass index is 28.08 kg/m . TW lb 9.6 oz (2.994 kg) US - 70%, complete Assessment/Plan: - reviewed anatomy US - discussed epidural in labor Surveillance of -> COLLEGE ADVISOR PATIENT EDC by LMP = 8 week US Labs: O+/I/-/-, HIV and RPR NR Genetics: declines Anatomy: AGA (70%), complete Placenta: anterior GCT: 26-28 weeks 3rd trim CBC/HIV/RPR Tdap: 27+ weeks Flu: GBS: 36 weeks, or sooner if early delivery indicated Social Barriers: none Mode of feeding: breast Method of contraception: undecided, discussed progesterone only options Delivery Planning: TBD Pain management: planning epidural H/o Myocarditis due to COVD vaccine - (records reviewed) completely recovered and cleared by Cardiology Hx hemiplegic migraines: Nightly cyproheptadine prophylaxis, magnesium prophylaxis PRN Tylenol/caffeine Neurologist does not want her to use triptan therapy. Reviewed (10/25) overall reassuring data, but limited, on PRN nurtec in Kirsten Thomas MD CAL SUPERVISOR Progress Notes - Office Visi t - 09/25/2024 - GA:16w3d 09/25/2024 - 16w3d - Eulalio Rodríguez NP OB RETURN VISIT Subjective: Ryder Riggins is a 24 y.o. at 16w3d who presents for her return OB visit. Reports improvement in BALLARD since entering in to her 2nd trimester, has not yet scheduled anything with neurology Denies VB, LOF, abd cramping or other acute concerns at this time Objective: Vitals: 09/25/24 1101 BP: 90/54 Weight: 142 lb 12.8 oz (64.8 kg) Height: 154.9 cm (5' 1) FHR 142bpm Assessment/Plan: Discussed MOF and MOC Reviewed bleeding/SAB precautions and location of [facility] RTC in 4 weeks for [facility] appointment Surveillance of -> COLLEGE ADVISOR PATIENT EDC by LMP = 8 week US Labs: O+/I/-/-, HIV and RPR NR Genetics: Counseled and considering-> (08/27) declines Anatomy: 20 weeks GCT: 26-28 weeks 3rd trim CBC/HIV/RPR Tdap: 27+ weeks Flu: GBS: 36 weeks, or sooner if early delivery indicated Social Barriers: none Mode of feeding: breast Method of contraception: undecided, discussed progesterone only options Delivery Planning: TBD H/o Myocarditis due to COVD vaccine - (records reviewed) completely recovered and cleared by Cardiology Hx hemiplegic migraines: Nightly cyproheptadine prophylaxis, magnesium prophylaxis, p.r.n. Tylenol/caffeine, p.r.n. Imitrex Merari Rodríguez NP Cosigned by Grady Willis MD at 10/01/2024 9:49 AM MEDICAL SUPERVISOR CAL SUPERVISOR CAL SUPERVISOR Progress Notes - Office Visi t - 08/27/2024 - GA:12w2d 08/27/2024 - w2d - Eulalio Rodríguez NP OB RETURN VISIT Subjective: Ryder Riggins is a 24 y.o. at 12w2d who presents for her return OB visit. Having frequent migraines, dc'd cyproheptadine and is only taking prn Imitrex Denies VB, LOF, abd cramping or other acute concerns at this time Objective: Vitals: 08/27/24 0948 BP: 100/74 Weight: 143 lb 6.4 oz (65 kg) Height: 154.9 cm (5' 1) BSUS: + cardiac activity noted Assessment/Plan: Reviewed WNL labs Discussed NIPT Discussed Flu vaccine Neurology referral placed Reviewed bleeding/SAB precautions and location of [facility] RTC in 4 weeks for [facility] appointment Surveillance of -> COLLEGE ADVISOR PATIENT EDC by LMP = 8 week US Labs: O+/I/-/-, HIV and RPR NR Genetics: Counseled and considering-> (08/27) declines Anatomy: 20 weeks GCT: 26-28 weeks 3rd trim CBC/HIV/RPR Tdap: 27+ weeks Flu: GBS: 36 weeks, or sooner if early delivery indicated Social Barriers: none Mode of feeding: Method of contraception: Delivery Planning: TBD H/o Myocarditis due to COVD vaccine - (records reviewed) completely recovered and cleared by Cardiology Hx hemiplegic migraines: Nightly cyproheptadine prophylaxis, magnesium prophylaxis, p.r.n. Tylenol/caffeine, p.r.n. Imitrex Merari Rodríguez NP Cosigned by Grady Willis MD at 08/30/2024 3:44 PM MEDICAL SUPERVISOR CAL SUPERVISOR CAL SUPERVISOR CAL SUPERVISOR Progress Notes - Clinical [place] pport - 07/31/2024 - GA:8w3d 07/31/2024 - w - Christal Roberto RN Patient is doing well today. She would like to discuss migraine medication. Dating US completed today. LAWRENCE reviewed with the pt. PNL ordered today. NIPT discussed with the pt. She will let us know if she wants to complete the testing at 11 weeks. LP 2021 with HS. STI urine sent to the lab today. 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 Pt has been cleared by cardio. Migraines, pt was taking Nurtec ODT but would like to discuss meds. Tdap and flu shot recommendations reviewed with the pt. OB call schedule reviewed with the pt. She might be interested in no experience care in . NOB packet reviewed with the pt and her questions were answered. CAL SUPERVISOR Progress Notes - Office Visi t - 07/31/2024 - GA:8w3d 07/31/2024 - w - Grady Willis MD New OB Visit Ryder Riggins is a 24 y.o. at 8w3d Complains of nausea with intermittent emesis. Is using jhonathan to try to help with suboptimal response. History of hemiplegic migraine headaches. Takes magnesium to aid in prevention, and was taking metoprolol. Gets minor headaches about once per week, which will usually respond to Tylenol and caffeine. Once or twice a month, she gets the more serious hemiplegic headache with facial drooping and vision change. For these, she has been taking rimegepant. As a teen, she had ocular side effects and response to intranasal Imitrex. 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 Has since been cleared by Cardiology with complete resolution. [facility] has a past medical history of Hemiplegic migraine and Myocarditis (CMS/HCC) (HCC). Surgical has no past surgical history on file. Social reports that she has never smoked. She has never used smokeless tobacco. No alcohol history on file. reports that she does not currently use drugs. reports being sexually active and has had partner(s) who are male. Meds Current Outpatient Medications: vit 14-narl-kamlu-dha 27mg iron- 800 mcg-250 mg capsule, Take by mouth, Disp: , Rfl: vit D3-vit I-tisgvbsnu-mmrj [id number] ekux-lbs-yp-mg tablet, Take by mouth, Disp: , Rfl: rimegepant (NURTEC ODT) tablet,disintegrating, Take 1 table at onset of migraine (max dose 1 tab/24 hours) (Patient not taking: Reported on 07/31/2024), Disp: , Rfl: Current Facility-Administered Medications: perflutren protein-a (OPTISON) 3 mL in sodium chloride 0.9% 8 mL syringe, 1-8 mL, intravenous, Once in imaging, Jet Portillo MD Allergies Patient is allergic to other and sumatriptan. Objective Vitals BP 116/70 Ht 154.9 cm (5' 1) Wt 142 lb (64.4 kg) LMP 06/02/2024 BMI 26.83 kg/m Body mass index is 26.83 kg/m . Physical Exam General Examination: GENERAL APPEARANCE: pleasant, well nourished, well developed, in no acute distress . HEAD: normocephalic, atraumatic. NEUROLOGIC: cranial nerves 2-12 grossly intact. PSYCH: alert, oriented, judgement and insight good, mood/affect full range . Assessment/Plan Reviewed ultrasound findings, size consistent with dates, final LAWRENCE based on LMP. Sent prescription for p.r.n. Reglan to help with nausea and advised the patient to start a vitamin B6 supplement. May also get some benefit from the antihistamine mentioned below. Sent prescriptions for nightly cyproheptadine for headache prevention and p.r.n. Imitrex. Advised patient to use Tylenol and caffeine as her 1st line. She was willing to try the oral Imitrex as second-line p.r.n. medication, as her prior experience with several years ago and it may have been the intranasal form that caused the side effects. She will notify us if she has any negative reaction to Imitrex. Counseled regarding options for and maternal genetic screening. Patient will notify us if she would like any testing done. Reviewed practice provider and call structure, option for no experience for physician only care. Surveillance of EDC by LMP = 8 week US Labs: ordered Genetics: Counseled and considering Anatomy: 20 weeks GCT: 26-28 weeks 3rd trim CBC/HIV/RPR Tdap: 27+ weeks GBS: 36 weeks, or sooner if early delivery indicated Social Barriers: none Mode of feeding: Method of contraception: Delivery Planning: TBD H/o Myocarditis due to COVD vaccine - (records reviewed) completely recovered and cleared by Cardiology Hx hemiplegic migraines: Nightly cyproheptadine prophylaxis, magnesium prophylaxis, p.r.n. Tylenol/caffeine, p.r.n. Imitrex Diagnoses and all orders for this visit: Encounter for supervision of normal first in first trimester (Z34.01) (Primary) - CBC without differential; Future - Drugs of Abuse Screen, Urine with Reflex Confirmation; Future - Hemoglobin A1c; Future - Hemoglobin analysis by electrophoresis; Future - Hepatitis B Surface Antigen Blood; Future - Hepatitis C antibody Blood; Future - HIV 1/2 Antibody plus p24 Antigen Blood; Future - RPR Blood; Future - Rubella IgG antibody Blood; Future - Type and screen; Future - Urine culture Urine, clean voided; Future - N. gonorrhoeae/C. trachomatis Amplification Urine; Future - Trichomonas vaginalis PCR Urine; Future Grady Willis MD CAL SUPERVISOR Last Filed Vital Signs Vital Sign Reading Time Taken Comments Blood Pressure 122/78 03/07/2025 11:31 AM CDT Pulse 76 03/05/2025 9:12 AM CDT Temperature 36.6 C (97.9 F) 03/05/2025 9:12 AM CDT Respiratory Rate 16 03/05/2025 9:12 AM CDT Oxygen Saturation 97% 03/05/2025 9:12 AM CDT Inhaled Oxygen Concentration - - Weight 81.6 kg (180 lb) 03/02/2025 9:23 PM CDT Height 154.9 cm (5' 1) 02/24/2025 10:43 AM CDT Body Mass Index 34.01 02/24/2025 10:43 AM CDT Plan of Treatment Health Maintenance Due Date Last Done Comments Cervical Cancer Screening 1999 Varicella Vaccines (1 of 2 - 13+ 2-dose series) 2012 HPV Vaccines (1 - 3-dose series) 2014 Hepatitis B Screening 2017 Regular Well Visit/Exam 18-64 2017 Covid-19 Vaccine (3 - 2023-2 5 season) 2024 11/04/2020, 10/07/2020 Influenza Vaccine (#1) 2025 , 05/28/2020, 07/31/2019 Depression Screening 03/04/2026 03/04/2025, 02/24/2025, 02/24/2025 DTaP/Tdap/Td Vaccine (3 - Td or Tdap) 01/03/2035 01/03/2025, 01/10/2022 Hepatitis C Screening Completed 07/31/2024 , 11/08/2020 Pneumococcal vaccine <65 Aged Out No longer eligible based on patient's age to complete this topic Procedures Procedure Name Priority Date/Time Associated Diagnosis Comments EGFR Routine 03/07/2025 9:58 AM CDT Pre-eclampsia in period COMPREHENSIVE METABOLIC PANEL Routine 03/07/2025 9:58 AM CDT Pre-eclampsia in period CBC WITHOUT DIFFERENTIAL Routine 03/07/2025 9:58 AM CDT Pre-eclampsia in period EGFR STAT 03/05/2025 10:33 AM CDT COMPREHENSIVE METABOLIC PANEL STAT 03/05/2025 10:33 AM CDT CBC WITHOUT DIFFERENTIAL STAT 03/05/2025 10:33 AM CDT EGFR Routine 03/04/2025 7:38 AM CDT COMPREHENSIVE METABOLIC PANEL Routine 03/04/2025 7:38 AM CDT CBC WITHOUT DIFFERENTIAL Routine 03/04/2025 7:38 AM CDT WI AN PROCEDURE PLACEHOLDER Routine 03/03/2025 4:28 AM CDT EGFR Routine 03/02/2025 9:26 PM CDT DIFFERENTIAL AUTO STAT 03/02/2025 9:2 6 PM CDT ANTIBODY SCREEN STAT 03/02/2025 9:26 PM CDT ABO/RH STAT 03/02/2025 9:26 PM CDT COMPREHENSIVE METABOLIC PANEL Routine 03/02/2025 9:26 PM CDT CBC WITH AUTO DIFFERENTIAL STAT 03/02/2025 9:26 PM CDT TYPE AND SCREEN STAT 03/02/2025 9:26 PM CDT RPR Routine 03/02/2025 9:26 PM CDT ANTIBODY SCREEN STAT 02/25/2025 6:48 PM CDT ABO/RH STAT 02/25/2025 6:48 PM CDT TYPE AND SCREEN STAT 02/25/2025 6:48 PM CDT RPR STAT 02/25/2025 6:48 PM CDT EGFR STAT 02/25/2025 4:12 PM CDT DIFFERENTIAL AUTO STAT 02/25/2025 4:1 2 PM CDT PROTEIN / CREATININE RATIO, URINE, RANDOM STAT 02/25/2025 4:12 PM CDT COMPREHENSIVE METABOLIC PANEL STAT 02/25/2025 4:12 PM CDT CBC WITH AUTO DIFFERENTIAL STAT 02/25/2025 4:12 PM CDT EGFR Routine 02/24/2025 11:28 AM CDT Swelling CBC WITHOUT DIFFERENTIAL Routine 02/24/2025 11:28 AM CDT Swelling COMPREHENSIVE METABOLIC PANEL Routine 02/24/2025 11:28 AM CDT Swelling URIC ACID Routine 02/24/2025 11:28 AM CDT Swelling PROTEIN / CREATININE RATIO, URINE, RANDOM Routine 02/24/2025 11:28 AM CDT Swelling GROUP B STREPTOCOCCUS SCREEN PCR GEN LAB Routine 02/14/2025 1:37 PM CDT Third trimester OB FOLLOW UP Schedule Routine, Read Routine (OP Routine) 02/14/2025 12:57 PM CDT Uterine size-date discrepancy in third trimester EGFR Routine 01/31/2025 2:05 PM CDT 34 weeks gestation of CBC WITHOUT DIFFERENTIAL Routine 01/31/2025 2:05 PM CDT 34 weeks gestation of COMPREHENSIVE METABOLIC PANEL Routine 01/31/2025 2:05 PM CDT 34 weeks gestation of PROTEIN / CREATININE RATIO, URINE, RANDOM Routine 01/31/2025 2:00 PM CDT 34 weeks gestation of VAGINITIS PANEL STAT 01/07/2025 11:11 AM CDT N. GONORRHOEAE/C. TRACHOMATIS AMPLIFICATION STAT 01/07/2025 11:11 AM CDT EGFR STAT 01/07/2025 10:55 AM CDT DIFFERENTIAL AUTO STAT 01/07/2025 10: 55 AM CDT COMPREHENSIVE METABOLIC PANEL STAT 01/07/2025 10:55 AM CDT CBC WITH AUTO DIFFERENTIAL STAT 01/07/2025 10:55 AM CDT URINE CULTURE Routine 01/07/2025 10:55 AM CDT URINALYSIS AND REFLEX TO MICROSCOPIC AND CULTURE STAT 01/07/2025 10:55 AM CDT GTT 100GM 3HR GESTATIONAL DIAGNOSTIC Timed 01/06/2025 12:36 PM CDT Abnormal GTT (glucose tolerance test) GTT 100GM 3HR GESTATIONAL DIAGNOSTIC Timed 01/06/2025 12:36 PM CDT Abnormal GTT (glucose tolerance test) GTT 100GM 2HR GESTATIONAL DIAGNOSTIC Timed 01/06/2025 11:32 AM CDT Abnormal GTT (glucose tolerance test) GTT 100GM 1HR GESTATIONAL DIAGNOSTIC Timed 01/06/2025 10:32 AM CDT Abnormal GTT (glucose tolerance test) GTT 100GM FASTING GESTATIONAL DIAGNOSTIC Timed 01/06/2025 9:30 AM CDT Abnormal GTT (glucose tolerance test) HEPATITIS C ANTIBODY Routine 07/31/2024 10:39 AM MEDICAL SUPERVISOR Encounter for supervision of normal first in first trimester from Last 3 Months or Most Recently Relevant to Health Maintenance Results * eGFR (03/07/2025 9:58 AM CDT) eGFR >90 >=60 mL/min/1. 73 m2 Comment: Interpretive Data Reference Interval Normal >/= 90 mL/min/1.73m2 Mildly decreased* 60 - 89 mL/min/1.73m2 Mildly to moderately decreased 45 - 59 mL/min/1.73m2 Moderately to severely decreased 30 - 44 mL/min/1.73m2 Severely decreased 15 - 29 mL/min/1.73m2 Kidney Failure < 15 mL/min/1.73m2 *Relative to young adult level Estimated glomerular filtration rate is determined by the 2020 CKD-EPI equation recommended by the National [employer] Foundation (A Unifying Approach to GFR Estimation: Recommendations of the NKF-ASK Task Force on Reassessing the Inclusion of Race in Diagnosing Kidney Disease, JASN 2020). The CKD-EPI equation should not be used for patients with unstable renal function and has not been validated in children and those over 70. Current interpretive data was last reviewed 2021. Testing performed by: [address] [address] Blood 03/07/2025 9:58 AM CDT 03/07/2025 12:36 PM CDT us Lynette ISAAC LAB BLOOD ORDERABLE S Final Result MICHELLE 1965 [facility] Department [place] [address] * (ABNORMAL) CBC without differential (03/07/2025 9:58 AM CDT) WBC 11.86(H) 3.80 - 9.90 K/cumm Comment:Testing performed by : [address] [address] Hgb 9.6(L) 11.9 - 15.5 g/dL MICHELLE VALDEZ Comment:Testing performed by : [address] [address] Hct 29.4(L) 35.6 - 45.5 % MICHELLE VALDEZ Comment:Testing performed by : [address] [address] Plt 296 150 - 400 K/cumm MICHELLE VALDEZ Comment:Testing performed by : [address] [address] MPV 9.1 9.1 - 12.3 fL MICHELLE VALDEZ Comment:Testing performed by : [address] [address] RBC 3.27(L) 3.90 - 5.20 M/cumm MICHELLE VALDEZ Comment:Testing performed by : [address] [address] MCV 89.9 81.3 - 96.4 fL MICHELLE Comment:Testing performed by : [address] [address] MCH 29.4 27.1 - 33.3 pg MICHELLE VALDEZ Comment:Testing performed by : [address] [address] MCHC 32.7 32.3 - 35.7 g/dL MICHELLE Comment:Testing performed by : [address] [address] RDW CV 13.5 11.1 - 14.9 % MICHELLE Comment:Testing performed by : [address] [address] RDW SD 43.9 35.7 - 48.1 fL MICHELLE Comment:Testing performed by : [address] [address] NRBC abs 0.00 0.00 - 0.01 K/cumm MICHELLE Comment:Testing performed by : [address] [address] Blood 03/07/2025 9:58 AM CDT 03/07/2025 10:34 AM CDT us Lynette Edwards CNM LAB BLOOD ORDERABLE S Final Result MICHELLE VALDEZ [facility] Department [place] [address] * (ABNORMAL) Comprehensive metabolic panel (03/07/2025 9:58 AM CDT) Sodium 139 135 - 145 mmol/L Comment:Testing performed by : [address] [address] Potassium, pl 4.8 3.3 - 4.9 mmol/L MICHELLE Comment:Testing performed by : [address] [address] Chloride 106 97 - 110 mmol/L MICHELLE Comment:Testing performed by : [address], [place]., [address] CO2 21(L) 22 - 32 mmol/L MICHELLE Comment:Testing performed by : [address] [address] Anion gap 12 2 - 15 mmol/L MICHELLE Comment:Testing performed by : [address] [address] BUN 10 6 - 25 mg/dL MICHELLE Comment:Testing performed by : [address], [place]., [address] Creatinine 0.72 0.60 - 1.10 mg/dL [facility] Comment:Testing performed by : [address] [address] Glucose 79 70 - 199 mg/dL [facility] Comment: Interpretive Data Fasting glucose >/= 126 mg/dl is diagnostic for diabetes. Fasting is defined as no caloric intake for at least 8 hours. Fasting glucose between 100 mg/dl to 125 mg/dl is diagnostic of prediabetes. In a patient with classic symptoms of hyperglycemia or hyperglycemic crisis, a random glucose >/= 200 mg/dl is diagnostic for diabetes. In the absence of unequivocal hyperglycemia, results should be confirmed by repeat testing. The classification and Diagnosis of Diabetes Diabetes Care 202; 46: S19-S40. Current interpretive data was last revised 2022. Testing performed by: [address] [address] Calcium 9.3 8.5 - 10.3 mg/dL MICHELLE Comment:Testing performed by : [address] [address] Bilirubin, total 0.2 0.1 - 1.2 mg/dL MICHELLE Comment:Testing performed by : [address] [address] Protein, pl 6.1(L) 6.5 - 8.5 g/dL MICHELLE Comment:Testing performed by : [address] [address] Albumin 3.4(L) 3.5 - 5.0 g/dL MICHELLE Comment:Testing performed by : [address], [address] Alk phos 122 40 - 130 Units/L MICHELLE Comment:Testing performed by : [address], [address] ALT 29 7 - 45 Units/L MICHELLE Comment:Testing performed by : [address], [address] AST 40 10 - 45 Units/L MICHELLE Comment:Testing performed by : [address] [address] Blood 03/07/2025 9:58 AM CDT 03/07/2025 12:36 PM CDT Lynette ISAAC LAB BLOOD ORDERABLE S Final Result [facility] [address] [facility] Department of Laboratories [place], [place] [id number] * eGFR (03/05/2025 10:33 AM CDT) eGFR >90 >=60 mL/min/1. 73 m2 Comment: Interpretive Data Reference Interval Normal >/= 90 mL/min/1.73m2 Mildly decreased* 60 - 89 mL/min/1.73m2 Mildly to moderately decreased 45 - 59 mL/min/1.73m2 Moderately to severely decreased 30 - 44 mL/min/1.73m2 Severely decreased 15 - 29 mL/min/1.73m2 Kidney Failure < 15 mL/min/1.73m2 *Relative to young adult level Estimated glomerular filtration rate is determined by the 2020 CKD-EPI equation recommended by the National Kidney Foundation (A Unifying Approach to GFR Estimation: Recommendations of the NKF-ASK Task Force on Reassessing the Inclusion of Race in Diagnosing Kidney Disease, JASN 2020). The CKD-EPI equation should not be used for patients with unstable renal function and has not been validated in children and those over 70. Current interpretive data was last reviewed 2021. Testing performed by: [address] [address] Blood 03/05/2025 10:3 3 AM CDT 03/05/2025 10:42 AM CDT us Lynette ISAAC LAB BLOOD ORDERABLE S Final Result MICHELLE VALDEZ [facility] Department [place] [address] * (ABNORMAL) CBC without differential (03/05/2025 10:33 AM CDT) WBC 16.86(H) 3.80 - 9.90 K/cumm Comment:Testing performed by : [address] [address] Hgb 10.0(L) 11.9 - 15.5 g/dL MICHELLE VALDEZ Comment:Testing performed by : [address] [address] Hct 30.0(L) 35.6 - 45.5 % MICHELLE VALDEZ Comment:Testing performed by : [address] [address] Plt 242 150 - 400 K/cumm MICHELLE VALDEZ Comment:Testing performed by : [address] [address] MPV 9.3 9.1 - 12.3 fL MICHELLE VALDEZ Comment:Testing performed by : [address] [address] RBC 3.34(L) 3.90 - 5.20 M/cumm MICHELLE VALDEZ Comment:Testing performed by : [address] [address] MCV 89.8 81.3 - 96.4 fL MICHELLE VALDEZ Comment:Testing performed by : [address] [address] MCH 29.9 27.1 - 33.3 pg MICHELLE VALDEZ Comment:Testing performed by : [address] [address] MCHC 33.3 32.3 - 35.7 g/dL MICHELLE VALDEZ Comment:Testing performed by : [address] [address] RDW CV 13.5 11.1 - 14.9 % MICHELLE VALDEZ Comment:Testing performed by : [address] [address] RDW SD 44.3 35.7 - 48.1 fL MICHELLE VALDEZ Comment:Testing performed by : [address] [address] NRBC abs 0.00 0.00 - 0.01 K/cumm MICHELLE VALDEZ Comment:Testing performed by : [address] [address] Blood 03/05/2025 10:3 3 AM CDT 03/05/2025 10:42 AM CDT us Lynette ISAAC LAB BLOOD ORDERABLE S Final Result MICHELLE [facility] Department [place] [address] * (ABNORMAL) Comprehensive metabolic panel (03/05/2025 10:33 AM CDT) Sodium 140 135 - 145 mmol/L Comment:Testing performed by : [address] [address] Potassium, pl 4.1 3.3 - 4.9 mmol/L MICHELLE VALDEZ Comment:Testing performed by : [address] [address] Chloride 107 97 - 110 mmol/L MICHELLE VALDEZ Comment:Testing performed by : [address] [address] CO2 21(L) 22 - 32 mmol/L [facility] Comment:Testing performed by : [address] [address] Anion gap 12 2 - 15 mmol/L [facility] Comment:Testing performed by : [address] [address] BUN 7 6 - 25 mg/dL [facility] Comment:Testing performed by : [address] [address] Creatinine 0.66 0.60 - 1.10 mg/dL [facility] Comment:Testing performed by : [address] [address] Glucose 76 70 - 199 mg/dL [facility] Comment: Interpretive Data Fasting glucose >/= 126 mg/dl is diagnostic for diabetes. Fasting is defined as no caloric intake for at least 8 hours. Fasting glucose between 100 mg/dl to 125 mg/dl is diagnostic of prediabetes. In a patient with classic symptoms of hyperglycemia or hyperglycemic crisis, a random glucose >/= 200 mg/dl is diagnostic for diabetes. In the absence of unequivocal hyperglycemia, results should be confirmed by repeat testing. The classification and Diagnosis of Diabetes Diabetes Care 202; 46: S19-S40. Current interpretive data was last revised 2022. Testing performed by: [address] [address] Calcium 9.1 8.5 - 10.3 mg/dL [facility] Comment:Testing performed by : [address] [address] Bilirubin, total <0.2 0.1 - 1.2 mg/dL [facility] Comment:Testing performed by : [address] [address] Protein, pl 6.1(L) 6.5 - 8.5 g/dL [facility] Comment:Testing performed by : [address] [address] Albumin 3.3(L) 3.5 - 5.0 g/dL MICHELLE Comment:Testing performed by : [address] [address] Alk phos 126 40 - 130 Units/L MICHELLE VALDEZ Comment:Testing performed by : [address] [address] ALT 17 7 - 45 Units/L MICHELLE VALDEZ Comment:Testing performed by : [address] [address] AST 37 10 - 45 Units/L MICHELLE Comment:Testing performed by : [address] [address] Blood 03/05/2025 10:3 3 AM CDT 03/05/2025 10:42 AM CDT us Lynette Edwards CNM LAB BLOOD ORDERABLE S Final Result MICHELLE [address] [facility] Department [place] [address] * eGFR (03/04/2025 7:38 AM CDT) eGFR >90 >=60 mL/min/1. 73 m2 Comment: Interpretive Data Reference Interval Normal >/= 90 mL/min/1.73m2 Mildly decreased* 60 - 89 mL/min/1.73m2 Mildly to moderately decreased 45 - 59 mL/min/1.73m2 Moderately to severely decreased 30 - 44 mL/min/1.73m2 Severely decreased 15 - 29 mL/min/1.73m2 Kidney Failure < 15 mL/min/1.73m2 *Relative to young adult level Estimated glomerular filtration rate is determined by the 2020 CKD-EPI equation recommended by the National Kidney Foundation (A Unifying Approach to GFR Estimation: Recommendations of the NKF-ASK Task Force on Reassessing the Inclusion of Race in Diagnosing Kidney Disease, JASN 2020). The CKD-EPI equation should not be used for patients with unstable renal function and has not been validated in children and those over 70. Current interpretive data was last reviewed 2021. Testing performed by: [address] [address] Blood 03/04/2025 7:38 AM CDT 03/04/2025 7:43 AM CDT Blanca Preston MD LAB BLOOD ORDERABLES Dorina janie Result MICHELLE [address] [facility] Department [place] [address] * (ABNORMAL) CBC without differential (03/04/2025 7:38 AM CDT) WBC 21.06(H) 3.80 - 9.90 K/cumm Comment:Testing performed by : [address] [address] Hgb 10.2(L) 11.9 - 15.5 g/dL MICHELLE Comment:Testing performed by : [address] [address] Hct 30.9(L) 35.6 - 45.5 % MICHELLE Comment:Testing performed by : [address] [address] Plt 209 150 - 400 K/cumm MICHELLE Comment:Testing performed by : [address] [address] MPV 9.7 9.1 - 12.3 fL MICHELLE Comment:Testing performed by : [address] [address] RBC 3.51(L) 3.90 - 5.20 M/cumm MICHELLE Comment:Testing performed by : [address] [address] MCV 88.0 81.3 - 96.4 fL MICHELLE Comment:Testing performed by : [address] [address] MCH 29.1 27.1 - 33.3 pg MICHELLE VALDEZ Comment:Testing performed by : [address] [address] MCHC 33.0 32.3 - 35.7 g/dL MICHELLE Comment:Testing performed by : [address] [address] RDW CV 13.4 11.1 - 14.9 % MICHELLE VALDEZ Comment:Testing performed by : [address] [address] RDW SD 42.5 35.7 - 48.1 fL MICHELLE VALDEZ Comment:Testing performed by : [address] [address] NRBC abs 0.00 0.00 - 0.01 K/cumm MICHELLE VALDEZ Comment:Testing performed by : [address] [address] Blood 03/04/2025 7:38 AM CDT 03/04/2025 7:43 AM CDT Nallely ISAAC LAB BLOOD ORDERABLES Final Re sult MICHELLE VALDEZ [facility] Department [place] [address] * (ABNORMAL) Comprehensive metabolic panel (03/04/2025 7:38 AM CDT) Sodium 138 135 - 145 mmol/L Comment:Testing performed by : [address] [address] Potassium, pl 4.4 3.3 - 4.9 mmol/L MICHELLE VALDEZ Comment:Testing performed by : [address] [address] Chloride 107 97 - 110 mmol/L MICHELLE Comment:Testing performed by : [address] [address] CO2 20(L) 22 - 32 mmol/L MICHELLE Comment:Testing performed by : [address] [address] Anion gap 11 2 - 15 mmol/L MICHELLE Comment:Testing performed by : [address] [address] BUN 9 6 - 25 mg/dL MICHELLE Comment:Testing performed by : [address] [address] Creatinine 0.84 0.60 - 1.10 mg/dL MICHELLE VALDEZ Comment:Testing performed by : [address] [address] Glucose 76 70 - 199 mg/dL MICHELLE Comment: Interpretive Data Fasting glucose >/= 126 mg/dl is diagnostic for diabetes. Fasting is defined as no caloric intake for at least 8 hours. Fasting glucose between 100 mg/dl to 125 mg/dl is diagnostic of prediabetes. In a patient with classic symptoms of hyperglycemia or hyperglycemic crisis, a random glucose >/= 200 mg/dl is diagnostic for diabetes. In the absence of unequivocal hyperglycemia, results should be confirmed by repeat testing. The classification and Diagnosis of Diabetes Diabetes Care 2021; 46: S19-S40. Current interpretive data was last revised 2022. Testing performed by: [address] [address] Calcium 9.1 8.5 - 10.3 mg/dL MICHELLE Comment:Testing performed by : [address] [address] Bilirubin, total <0.2 0.1 - 1.2 mg/dL MICHELLE Comment:Testing performed by : [address] [address] Protein, pl 5.8(L) 6.5 - 8.5 g/dL MICHELLE Comment:Testing performed by : [address] [address] Albumin 3.2(L) 3.5 - 5.0 g/dL MICHELLE Comment:Testing performed by : [address] [address] Alk phos 138(H) 40 - 130 Units/L MICHELLE Comment:Testing performed by : [address] [address] ALT 15 7 - 45 Units/L MICHELLE Comment:Testing performed by : [address] [address] AST 47(H) 10 - 45 Units/L MICHELLE Comment:Testing performed by : [address] [address] Blood 03/04/2025 7:38 AM CDT 03/04/2025 7:43 AM CDT Blanca Preston MD LAB BLOOD ORDERABLES Dorina lima Result MICHELLE [address] [facility] Department [place] [address] * WI AN PROCEDURE PLACEHOLDER (03/03/2025 4:28 AM CDT) Narrative Malika Joshua CRNA - 03/03/2025 4:28 AM CDT Malika Joshua CRNA 03/03/2025 4:29 AM CSE Block Patient location during procedure: L&D Reason for block: labor analgesia Staffing: Supervising provider: Castillo Schuler DO Placed by: CHCUK: Malika Joshua CRNA Preprocedure Prep: Preprocedure checklist: patient identified, procedure contraindications assessed, procedure consent, surgical consent, IV checked, risks, benefits and alternatives discussed, monitors and equipment checked and timeout performed Patient position: sitting Procedure performed while patient: awake Monitoring: oximetry and blood pressure Prep solution: povidone-iodine PPE: provider hat/mask and sterile drape Skin infiltrated with lidocaine 1%: yes CSE: Approach: midline Number of attempts: 1 Epidural Needle: Injection technique: BUZZ saline Needle type: Tuohy Needle gauge: 17 G Needle length: 9 cm Loss of resistance: 7 cm Spinal Needle: Needle type: Dali Needle gauge: 25 Needle insertion: through epidural needle Catheter: Catheter type: single-orifice Catheter at skin depth: 12 Test dose: negative Assessment: Events: patient tolerated procedure well with no complications Castillo Schuler DO ANESTHESIA ORDERABLES Final R esult * eGFR (03/02/2025 9:26 PM CDT) eGFR >90 >=60 mL/min/1. 73 m2 Comment: Interpretive Data Reference Interval Normal >/= 90 mL/min/1.73m2 Mildly decreased* 60 - 89 mL/min/1.73m2 Mildly to moderately decreased 45 - 59 mL/min/1.73m2 Moderately to severely decreased 30 - 44 mL/min/1.73m2 Severely decreased 15 - 29 mL/min/1.73m2 Kidney Failure < 15 mL/min/1.73m2 *Relative to young adult level Estimated glomerular filtration rate is determined by the 2020 CKD-EPI equation recommended by the National Kidney Foundation (A Unifying Approach to GFR Estimation: Recommendations of the NKF-ASK Task Force on Reassessing the Inclusion of Race in Diagnosing Kidney Disease, JASN 2020). The CKD-EPI equation should not be used for patients with unstable renal function and has not been validated in children and those over 70. Current interpretive data was last reviewed 2021. Testing performed by: [address] [address] Blood 03/02/2025 9:26 PM CDT 03/02/2025 9:53 PM CDT us Grady Willis MD LAB BLOOD ORDERABLES Final Result [facility] Department [place] [address] * (ABNORMAL) Differential, auto (03/02/2025 9:26 PM CDT) Neutrophil abs 11.64(H) 1.50 - 6.50 K/cumm Comment:Testing performed by : [address] [address] Imm gran abs 0.28(H) 0.00 - 0.10 K/cumm MICHELLE Comment:Testing performed by : [address] [address] Lymphocyte abs 3.07 0.80 - 3.30 K/cumm MICHELLE Comment:Testing performed by : [address] [address] Monocyte abs 0.96(H) 0.20 - 0.80 K/cumm MICHELLE Comment:Testing performed by : [address] [address] Eosinophil abs 0.08 0.00 - 0.50 K/cumm MICHELLE Comment:Testing performed by : [address] [address] Basophil abs 0.06 0.00 - 0.10 K/cumm MICHELLE Comment:Testing performed by : [address] [address] Neutrophil pct 72.3 % [facility] Comment: Interpretive Data Percent cell count reference ranges are not reported, since discordance with absolute values may lead to misinterpretation of CBC data. Current Interpretive Data was last revised on 2017. Testing performed by: [address] [address] Imm gran pct 1.7 % [facility] Comment: Interpretive Data Percent cell count reference ranges are not reported, since discordance with absolute values may lead to misinterpretation of CBC data. Current Interpretive Data was last revised on 2017. Testing performed by: [address] [address] Lymphocyte pct 19.1 % [facility] Comment: Interpretive Data Percent cell count reference ranges are not reported, since discordance with absolute values may lead to misinterpretation of CBC data. Current Interpretive Data was last revised on 2017. Testing performed by: [address] [address] Monocyte pct 6.0 % [facility] Comment: Interpretive Data Percent cell count reference ranges are not reported, since discordance with absolute values may lead to misinterpretation of CBC data. Current Interpretive Data was last revised on 2017. Testing performed by: [address] [address] Eosinophil pct 0.5 % [facility] Comment: Interpretive Data Percent cell count reference ranges are not reported, since discordance with absolute values may lead to misinterpretation of CBC data. Current Interpretive Data was last revised on 2017. Testing performed by: [address] [address] Basophil pct 0.4 % [facility] Comment: Interpretive Data Percent cell count reference ranges are not reported, since discordance with absolute values may lead to misinterpretation of CBC data. Current Interpretive Data was last revised on 2017. Testing performed by: [address] [address] Blood 03/02/2025 9:26 PM CDT 03/02/2025 9:53 PM CDT us Grady Willis MD LAB BLOOD ORDERABLES Final Result MICHELLE [address] [facility] Department [place] [address] * (ABNORMAL) CBC with auto differential (03/02/2025 9:26 PM CDT) WBC 16.09(H) 3.80 - 9.90 K/cumm Comment:Testing performed by : [address] [address] Hgb 10.8(L) 11.9 - 15.5 g/dL MICHELLE Comment:Testing performed by : [address] [address] Hct 31.7(L) 35.6 - 45.5 % MICHELLE Comment:Testing performed by : [address] [address] Plt 266 150 - 400 K/cumm MICHELLE Comment:Testing performed by : [address] [address] MPV 10.1 9.1 - 12.3 fL MICHELLE Comment:Testing performed by : [address] [address] RBC 3.62(L) 3.90 - 5.20 M/cumm MICHELLE Comment:Testing performed by : [address] [address] MCV 87.6 81.3 - 96.4 fL MICHELLE Comment:Testing performed by : [address] [address] MCH 29.8 27.1 - 33.3 pg MICHELLE Comment:Testing performed by : [address] [address] MCHC 34.1 32.3 - 35.7 g/dL MICHELLE Comment:Testing performed by : [address] [address] RDW CV 13.2 11.1 - 14.9 % MICHELLE VALDEZ Comment:Testing performed by : [facility], [address] [place] [address]., [address] RDW SD 41.5 35.7 - 48.1 fL MICHELLE VALDEZ Comment:Testing performed by : [facility], [address] [place] [address]., [address] NRBC abs 0.00 0.00 - 0.01 K/cumm MICHELLE Comment:Testing performed by : [facility], [address] [place] [address]., [address] Blood 03/02/2025 9:26 PM CDT 03/02/2025 9:53 PM CDT Grady Willis MD LAB BLOOD ORDERABLES Final Result Performing Organization Address [facility] Co de Phone Number [address] [place] [address] * ABO/Rh (03/02/2025 9:26 PM CDT) ABO/Rh O Positive Comment:Testing performed by : [facility], [address] [place] [address], [address] Blood 03/02/2025 9:26 PM CDT 03/02/2025 9:53 PM CDT Narrative MICHELLE - 03/02/2025 10:28 PM CDT Has the patient had Daratumumab or Isatuximab in the past 6 months?->Unknown Grady Willis MD LAB BLOOD BANK TEST ORDERA BLES Final Result Performing Organization Address City/[facility] Co de Phone Number [address] [facility] [place] [address] * RPR Blood (03/02/2025 9:26 PM CDT) RPR Nonreactive Nonreactive Comment:Testing performed by : [facility], [address] [facility] [place]., [address] Blood 03/02/2025 9:26 PM CDT 03/03/2025 2:02 AM CDT Grady Willis MD LAB MICROBIOLOGY - GENERAL ORDERABLES Final Result Performing Organization Address [facility] Co de Phone Number [id number] [address] * Antibody screen (03/02/2025 9:26 PM CDT) Pathologist [facility] Honorio, indirect, Gel Interpretation Negative ABSC Comment:Testing performed by : [address] [address] Blood 03/02/2025 9:26 PM CDT 03/02/2025 9:53 PM CDT Narrative MICHELLE - 03/02/2025 10:28 PM CDT Has the patient had Daratumumab or Isatuximab in the past 6 months?->Unknown Grady Willis MD LAB BLOOD BANK TEST ORDERA BLES Final Result Performing Organization Address [facility] de Phone Number [address] [address] * (ABNORMAL) Comprehensive metabolic panel (03/02/2025 9:26 PM CDT) [facility] Sodium 137 135 - 145 mmol/L Comment:Testing performed by : [address] [address] Potassium, pl 4.2 3.3 - 4.9 mmol/L MICHELLE Comment: Hemolyzed; Potassium value may be falsely elevated by as much as 1.0 mmol/L. Suggest redraw and reanalysis. Testing performed by: [address] [address] Chloride 104 97 - 110 mmol/L MICHELLE Comment:Testing performed by : [address] [address] CO2 19(L) 22 - 32 mmol/L MICHELLE Comment:Testing performed by : [address] [address] Anion gap 14 2 - 15 mmol/L MICHELLE Comment:Testing performed by : [address] [address] BUN 10 6 - 25 mg/dL MICHELLE Comment:Testing performed by : [address] [address] Creatinine 0.79 0.60 - 1.10 mg/dL MICHELLE Comment:Testing performed by : [address] [address] [address] Glucose 119 70 - 199 mg/dL MICHELLE Comment: Interpretive Data Fasting glucose >/= 126 mg/dl is diagnostic for diabetes. Fasting is defined as no caloric intake for at least 8 hours. Fasting glucose between 100 mg/dl to 125 mg/dl is diagnostic of prediabetes. In a patient with classic symptoms of hyperglycemia or hyperglycemic crisis, a random glucose >/= 200 mg/dl is diagnostic for diabetes. In the absence of unequivocal hyperglycemia, results should be confirmed by repeat testing. The classification and Diagnosis of Diabetes Diabetes Care 202; 46: S19-S40. Current interpretive data was last revised 2022. Testing performed by: [address] [address] Calcium 9.7 8.5 - 10.3 mg/dL MICHELLE Comment:Testing performed by : [address] [address] Bilirubin, total <0.2 0.1 - 1.2 mg/dL MICHELLE Comment:Testing performed by : [address] [address] Protein, pl 6.1(L) 6.5 - 8.5 g/dL MICHELLE Comment:Testing performed by : [address] [address] Albumin 3.5 3.5 - 5.0 g/dL MICHELLE Comment:Testing performed by : [address] [address] Alk phos 167(H) 40 - 130 Units/L MICHELLE Comment:Testing performed by : [address] [address] ALT 10 7 - 45 Units/L MICHELLE Comment:Testing performed by : [address] [address] AST 20 10 - 45 Units/L MICHELLE Comment: Hemolyzed; result may be falsely elevated Testing performed by: [address] [address] Blood 03/02/2025 9:26 PM CDT 03/02/2025 9:53 PM CDT Grady Willis MD LAB BLOOD ORDERABLES Final Result Performing Organization Address [facility] [place]/[facility] Co de Phone Number [address] [place] [address] * ABO/Rh (02/25/2025 6:48 PM CDT) ABO/Rh O Positive Comment:Testing performed by : [address] [address] Blood 02/25/2025 6:48 PM CDT 02/25/2025 6:53 PM CDT Narrative MICHELLE - 02/25/2025 7:35 PM CDT Has the patient had Daratumumab or Isatuximab in the past 6 months?->Unknown Nallely Beebe CNM LAB BLOOD BANK TEST ORDERABLE S Final Result Performing Organization Address City/[facility] Co de Phone Number [address] [facility] [place] [address] * RPR Blood (02/25/2025 6:48 PM CDT) RPR Nonreactive Nonreactive Comment:Testing performed by : [facility], [address] [facility], [place]., [address] Blood 02/25/2025 6:48 PM CDT 02/25/2025 9:57 PM CDT Nallely ISAAC LAB MICROBIOLOGY - GENERAL OR DERABLES Final Result Performing Organization Address [facility] [place]/[facility]/ZIP Co de Phone Number [id number] [address] * Antibody screen (02/25/2025 6:48 PM CDT) Honorio, indirect, Gel Interpretation Negative ABSC Comment:Testing performed by : [facility], [address] [place] [address]., [address] Blood 02/25/2025 6:48 PM CDT 02/25/2025 6:53 PM CDT Narrative [facility] 02/25/2025 7:35 PM CDT Has the patient had Daratumumab or Isatuximab in the past 6 months?->Unknown Nallely ISAAC LAB BLOOD BANK TEST ORDERABLE S Final Result Performing Organization Address [facility] [place]/[facility] Co de Phone Number [facility] [place] [address] * eGFR (02/25/2025 4:12 PM CDT) eGFR >90 >=60 mL/min/1. 73 m2 Comment: Interpretive Data Reference Interval Normal >/= 90 mL/min/1.73m2 Mildly decreased* 60 - 89 mL/min/1.73m2 Mildly to moderately decreased 45 - 59 mL/min/1.73m2 Moderately to severely decreased 30 - 44 mL/min/1.73m2 Severely decreased 15 - 29 mL/min/1.73m2 Kidney Failure < 15 mL/min/1.73m2 *Relative to young adult level Estimated glomerular filtration rate is determined by the 2020 CKD-EPI equation recommended by the National Kidney Foundation (A Unifying Approach to GFR Estimation: Recommendations of the NKF-ASK Task Force on Reassessing the Inclusion of Race in Diagnosing Kidney Disease, JASN 2020). The CKD-EPI equation should not be used for patients with unstable renal function and has not been validated in children and those over 70. Current interpretive data was last reviewed 2021. Testing performed by: [address] [address] Blood 02/25/2025 4:12 PM CDT 02/25/2025 4:17 PM CDT us Jade Vela MD LAB BLOOD ORDERABLES Final Resul t [facility] [address] [facility] Department [place] [address] * (ABNORMAL) Differential, auto (02/25/2025 4:12 PM CDT) Neutrophil abs 14.88(H) 1.50 - 6.50 K/cumm Comment:Testing performed by : [address] [address] Imm gran abs 0.42(H) 0.00 - 0.10 K/cumm MICHELLE Comment:Testing performed by : [address] [address] Lymphocyte abs 2.59 0.80 - 3.30 K/cumm MICHELLE Comment:Testing performed by : [address] [address] Monocyte abs 0.83(H) 0.20 - 0.80 K/cumm MICHELLE Comment:Testing performed by : [address] [address] Eosinophil abs 0.04 0.00 - 0.50 K/cumm MICHELLE Comment:Testing performed by : [address] [address] Basophil abs 0.07 0.00 - 0.10 K/cumm MICHELLE Comment:Testing performed by : [address] [address] Neutrophil pct 79.0 % MICHELLE Comment: Interpretive Data Percent cell count reference ranges are not reported, since discordance with absolute values may lead to misinterpretation of CBC data. Current Interpretive Data was last revised on 2017. Testing performed by: [address] [address] Imm gran pct 2.2 % [facility] Comment: Interpretive Data Percent cell count reference ranges are not reported, since discordance with absolute values may lead to misinterpretation of CBC data. Current Interpretive Data was last revised on 2017. Testing performed by: [address] [address] Lymphocyte pct 13.8 % [facility] Comment: Interpretive Data Percent cell count reference ranges are not reported, since discordance with absolute values may lead to misinterpretation of CBC data. Current Interpretive Data was last revised on 2017. Testing performed by: [address] [address] Monocyte pct 4.4 % [facility] Comment: Interpretive Data Percent cell count reference ranges are not reported, since discordance with absolute values may lead to misinterpretation of CBC data. Current Interpretive Data was last revised on 2017. Testing performed by: [address] [address] Eosinophil pct 0.2 % [facility] Comment: Interpretive Data Percent cell count reference ranges are not reported, since discordance with absolute values may lead to misinterpretation of CBC data. Current Interpretive Data was last revised on 2017. Testing performed by: [address] [address] Basophil pct 0.4 % [facility] Comment: Interpretive Data Percent cell count reference ranges are not reported, since discordance with absolute values may lead to misinterpretation of CBC data. Current Interpretive Data was last revised on 2017. Testing performed by: [address] [address] Blood 02/25/2025 4:12 PM CDT 02/25/2025 4:17 PM CDT us Jade Vela MD LAB BLOOD ORDERABLES Final Resul t MICHELLE [address] [facility] Department of Laboratories [place], [place] [id number] * (ABNORMAL) CBC with auto differential (02/25/2025 4:12 PM CDT) [facility] Signature WBC 18.83(H) 3.80 - 9.90 K/cumm Comment:Testing performed by : [address] [address] Hgb 11.2(L) 11.9 - 15.5 g/dL MICHELLE Comment:Testing performed by : [address] [address] Hct 33.4(L) 35.6 - 45.5 % MICHELLE Comment:Testing performed by : [address] [address] Plt 268 150 - 400 K/cumm MICHELLE Comment:Testing performed by : [address] [address] MPV 9.9 9.1 - 12.3 fL MICHELLE Comment:Testing performed by : [address], [address] RBC 3.82(L) 3.90 - 5.20 M/cumm MICHELLE Comment:Testing performed by : [address] [address] MCV 87.4 81.3 - 96.4 fL MICHELLE Comment:Testing performed by : [address] [address] MCH 29.3 27.1 - 33.3 pg MICHELLE Comment:Testing performed by : [address] [address] MCHC 33.5 32.3 - 35.7 g/dL MICHELLE Comment:Testing performed by : [address] [address] RDW CV 13.0 11.1 - 14.9 % MICHELLE Comment:Testing performed by : [address], [address] RDW SD 40.7 35.7 - 48.1 fL MICHELLE Comment:Testing performed by : [address] [address] NRBC abs 0.00 0.00 - 0.01 K/cumm MICHELLE Comment:Testing performed by : [address] [address] Blood 02/25/2025 4:12 PM CDT 02/25/2025 4:17 PM CDT Jade Vela MD LAB BLOOD ORDERABLES Final Resul t Performing Organization Address [facility] [place]/[facility] Co de Phone Number [facility] [place] [address] * (ABNORMAL) Protein / creatinine ratio, urine, random (02/25/2025 4:12 PM CDT) Protein, ur, quant 40.0 mg/dL Comment: Interpretive Data No reference range established. Current interpretive data was last revised 2019. Testing performed by: [address] [address] Creatinine Ur 117.0 mg/dL MICHELLE Comment: Interpretive Data No reference range established. Current interpretive data was last revised 2019. Testing performed by: [address] [address] Protein/creatinin e ratio 341.9(H) 0.0 - 180.0 mg/g CR MICHELLE Comment:Testing performed by : [address] [address] Urine 02/25/2025 4:12 PM CDT 02/25/2025 4:17 PM CDT Jade Vela MD LAB URINE ORDERABLES Final Resul t Performing Organization Address [facility] [place]/[facility]/ZIP Co de Phone Number [facility] [place] [address] * (ABNORMAL) Comprehensive metabolic panel (02/25/2025 4:12 PM CDT) Sodium 137 135 - 145 mmol/L Comment:Testing performed by : [address] [address] Potassium, pl 4.0 3.3 - 4.9 mmol/L MICHELLE Comment:Testing performed by : [address] [address] Chloride 105 97 - 110 mmol/L MICHELLE Comment:Testing performed by : [address], [place]., [address] CO2 19(L) 22 - 32 mmol/L MICHELLE Comment:Testing performed by : [address] [address] Anion gap 13 2 - 15 mmol/L MICHELLE Comment:Testing performed by : [address], [place]., [address] BUN 11 6 - 25 mg/dL MICHELLE Comment:Testing performed by : [address] [address] Creatinine 0.78 0.60 - 1.10 mg/dL MICHELLE Comment:Testing performed by : [address] [address] Glucose 102 70 - 199 mg/dL MICHELLE Comment: Interpretive Data Fasting glucose >/= 126 mg/dl is diagnostic for diabetes. Fasting is defined as no caloric intake for at least 8 hours. Fasting glucose between 100 mg/dl to 125 mg/dl is diagnostic of prediabetes. In a patient with classic symptoms of hyperglycemia or hyperglycemic crisis, a random glucose >/= 200 mg/dl is diagnostic for diabetes. In the absence of unequivocal hyperglycemia, results should be confirmed by repeat testing. The classification and Diagnosis of Diabetes Diabetes Care 2021; 46: S19-S40. Current interpretive data was last revised 2022. Testing performed by: [address] [address] Calcium 9.5 8.5 - 10.3 mg/dL MICHELLE Comment:Testing performed by : [address] [address] Bilirubin, total 0.2 0.1 - 1.2 mg/dL MICHELLE Comment:Testing performed by : [address] [address] Protein, pl 6.5 6.5 - 8.5 g/dL MICHELLE Comment:Testing performed by : [address] [address] Albumin 3.6 3.5 - 5.0 g/dL MICHELLE VALDEZ Comment:Testing performed by : [address] [address] Alk phos 164(H) 40 - 130 Units/L MICHELLE VALDEZ Comment:Testing performed by : [address] [address] ALT 11 7 - 45 Units/L MICHELLE Comment:Testing performed by : [address] [address] AST 23 10 - 45 Units/L MICHELLE Comment:Testing performed by : [address] [address] Blood 02/25/2025 4:12 PM CDT 02/25/2025 4:17 PM CDT us Jade Vela MD LAB BLOOD ORDERABLES Final Resul t MICHELLE [address] [facility] Department [place] [address] * eGFR (02/24/2025 11:28 AM CDT) eGFR >90 >=60 mL/min/1. 73 m2 Comment: Interpretive Data Reference Interval Normal >/= 90 mL/min/1.73m2 Mildly decreased* 60 - 89 mL/min/1.73m2 Mildly to moderately decreased 45 - 59 mL/min/1.73m2 Moderately to severely decreased 30 - 44 mL/min/1.73m2 Severely decreased 15 - 29 mL/min/1.73m2 Kidney Failure < 15 mL/min/1.73m2 *Relative to young adult level Estimated glomerular filtration rate is determined by the 2020 CKD-EPI equation recommended by the National Kidney Foundation (A Unifying Approach to GFR Estimation: Recommendations of the NKF-ASK Task Force on Reassessing the Inclusion of Race in Diagnosing Kidney Disease, JASN 2020). The CKD-EPI equation should not be used for patients with unstable renal function and has not been validated in children and those over 70. Current interpretive data was last reviewed 2021. Testing performed by: [address] [address] Blood 02/24/2025 11:2 8 AM CDT 02/24/2025 12:41 PM CDT Lynette ISAAC LAB BLOOD ORDERABLE S Final Result Performing Organization Address City/[facility] Co de Phone Number MICHELLE [address] [place] [address] * (ABNORMAL) Protein / creatinine ratio, urine, random (02/24/2025 11:28 AM CDT) Protein, ur, quant 48.0 mg/dL Comment: Interpretive Data No reference range established. Current interpretive data was last revised 2019. Testing performed by: [address] [address] Creatinine Ur 146.2 mg/dL MICHELLE Comment: Interpretive Data No reference range established. Current interpretive data was last revised 2019. Testing performed by: [address] [address] Protein/creatinin e ratio 328.3(H) 0.0 - 180.0 mg/g CR MICHELLE Comment:Testing performed by : [address] [address] Urine 02/24/2025 11:2 8 AM CDT 02/24/2025 12:41 PM CDT Lynette ISAAC LAB URINE ORDERABLE S Final Result Performing Organization Address [facility] [place]/[facility] Co de Phone Number [id number] [facility] [place] [address] * (ABNORMAL) CBC without differential (02/24/2025 11:28 AM CDT) WBC 15.73(H) 3.80 - 9.90 K/cumm Comment:Testing performed by : [address] [address] Hgb 11.7(L) 11.9 - 15.5 g/dL MICHELLE Comment:Testing performed by : [address] [address] Hct 35.1(L) 35.6 - 45.5 % MICHELLE Comment:Testing performed by : [address] [address] Plt 285 150 - 400 K/cumm MICHELLE Comment:Testing performed by : [address] [address] MPV 10.1 9.1 - 12.3 fL MICHELLE Comment:Testing performed by : [address] [address] RBC 3.91 3.90 - 5.20 M/cumm MICHELLE Comment:Testing performed by : [address] [address] MCV 89.8 81.3 - 96.4 fL MICHELLE Comment:Testing performed by : [address] [address] MCH 29.9 27.1 - 33.3 pg MICHELLE Comment:Testing performed by : [address] [address] MCHC 33.3 32.3 - 35.7 g/dL MICHELLE Comment:Testing performed by : [address], [address] RDW CV 13.0 11.1 - 14.9 % MICHELLE Comment:Testing performed by : [address] [address] RDW SD 42.2 35.7 - 48.1 fL MICHELLE Comment:Testing performed by : [address] [address] NRBC abs 0.02(H) 0.00 - 0.01 K/cumm MICHELLE Comment:Testing performed by : [address], [address] Blood 02/24/2025 11:2 8 AM CDT 02/24/2025 12:41 PM CDT Lynette Edwards [facility] LAB BLOOD ORDERABLE S Final Result Performing Organization Address [facility] [place]/[facility] de Phone Number MICHELLE [address] [address] * Uric acid (02/24/2025 11:28 AM CDT) [facility] Uric acid 6.0 2.5 - 7.0 mg/dL Comment:Testing performed by : [address] [address] Blood 02/24/2025 11:2 8 AM CDT 02/24/2025 12:41 PM CDT Lynette ISAAC LAB BLOOD ORDERABLE S Final Result Performing Organization Address [facility] [place]/[facility] de Phone Number MICHELLE [address] [place] [address] * (ABNORMAL) Comprehensive metabolic panel (02/24/2025 11:28 AM CDT) [facility] Sodium 138 135 - 145 mmol/L Comment:Testing performed by : [address] [address] Potassium, pl 4.1 3.3 - 4.9 mmol/L MICHELLE Comment:Testing performed by : [address] [address] Chloride 105 97 - 110 mmol/L MICHELLE Comment:Testing performed by : [address] [address] CO2 20(L) 22 - 32 mmol/L MICHELLE Comment:Testing performed by : [address] [address] Anion gap 13 2 - 15 mmol/L MICHELLE Comment:Testing performed by : [address] [address] BUN 11 6 - 25 mg/dL MICHELLE Comment:Testing performed by : [address] [address] Creatinine 0.68 0.60 - 1.10 mg/dL MICHELLE Comment:Testing performed by : [address] [address] Glucose 88 70 - 199 mg/dL MICHELLE Comment: Interpretive Data Fasting glucose >/= 126 mg/dl is diagnostic for diabetes. Fasting is defined as no caloric intake for at least 8 hours. Fasting glucose between 100 mg/dl to 125 mg/dl is diagnostic of prediabetes. In a patient with classic symptoms of hyperglycemia or hyperglycemic crisis, a random glucose >/= 200 mg/dl is diagnostic for diabetes. In the absence of unequivocal hyperglycemia, results should be confirmed by repeat testing. The classification and Diagnosis of Diabetes Diabetes Care 202; 46: S19-S40. Current interpretive data was last revised 2022. Testing performed by: [address] [address] Calcium 9.6 8.5 - 10.3 mg/dL [facility] Comment:Testing performed by : [address] [address] Bilirubin, total 0.2 0.1 - 1.2 mg/dL [facility] Comment:Testing performed by : [address] [address] Protein, pl 6.5 6.5 - 8.5 g/dL [facility] Comment:Testing performed by : [address] [address] Albumin 3.6 3.5 - 5.0 g/dL [facility] Comment:Testing performed by : [address] [address] Alk phos 175(H) 40 - 130 Units/L MICHELLE Comment:Testing performed by : [address] [address] ALT 11 7 - 45 Units/L MICHELLE Comment:Testing performed by : [address] [address] AST 23 10 - 45 Units/L MICHELLE Comment:Testing performed by : [address] [address] Blood 02/24/2025 11:2 8 AM CDT 02/24/2025 12:41 PM CDT Lynette ISAAC LAB BLOOD ORDERABLE S Final Result Performing Organization Address [facility] [place]/[facility] Co de Phone Number MICHELLE [address] [place] [address] * Group B streptococcus PCR Vaginal/Rectal (02/14/2025 1:37 PM CDT) Strep group B PCR Negative Negative Comment: Interpretive Data Testing performed by [facility]. This test is performed using the [employer] Xpert GBS LB XC assay. This is a real-time PCR assay intended for the qualitative detection of nucleic acid from Streptococcus agalactiae (GBS). This assay has been cleared by the [place] Food and Drug administration. The performance characteristics have been verified by the [facility]. Penicillin is the drug of choice for Beta strep infections. A negative result does not rule out the possibility of GBS colonization. False negative results may occur if the organism is present at levels below the analytical limit of detection. Current interpretive data was last reviewed 2023 Testing performed by: [facility], [address] [place] [address]., [address] Vaginal/Rectal 02/14/2025 1: 37 PM CDT 02/14/2025 7:10 PM CDT Narrative MICHELLE - 02/15/2025 4:03 PM CDT Culture Type:->Vaginal/Anal Drag Is patient allergic to penicillin?->No Nallely ISAAC LAB MICROBIOLOGY - GENERAL OR DERABLES Final Result Performing Organization Address [facility] [place]/[facility] Co de Phone Number MICHELLE [address] [facility] [place] [address] * US Ob Follow Up (02/14/2025 12:57 PM CDT) Fetus# Fetus1 VIEWPOINT Estimated Weight 2,967 g&grams VIEWPOINT Placenta Details anterior VIEWPOINT Presentation Vertex VIEWPOINT Anatomical Region Laterality Modality Abdomen N/A Ultrasound 02/14/2025 1:02 PM CDT Impressions 02/24/2025 9:50 PM CDT Physician interpretation: Single living intrauterine gestation, cephalic presentation, with an estimated weight of 2967 g, which is 50th percentile for the established gestational age of 36 weeks and 5 days. Limited anatomy views are normal within the limitations of this study. The amniotic fluid index is normal at 17.6. Narrative Procedure Note Grady Willis MD - 02/24/2025 IMPRESSION: Physician interpretation: Single living intrauterine gestation, cephalicpresentation, with an estimated weight of 2967 g, which is 50thpercentile for the established gestational age of 36 weeks and 5 days.Limited anatomy views are normal within the limitations of this study.The amniotic fluid index is normal at 17.6. us Nallely ISAAC IMG OB US PROCEDURES Final Re sult * eGFR (01/31/2025 2:05 PM CDT) eGFR >90 >=60 mL/min/1. 73 m2 Comment: Interpretive Data Reference Interval Normal >/= 90 mL/min/1.73m2 Mildly decreased* 60 - 89 mL/min/1.73m2 Mildly to moderately decreased 45 - 59 mL/min/1.73m2 Moderately to severely decreased 30 - 44 mL/min/1.73m2 Severely decreased 15 - 29 mL/min/1.73m2 Kidney Failure < 15 mL/min/1.73m2 *Relative to young adult level Estimated glomerular filtration rate is determined by the 2020 CKD-EPI equation recommended by the National Kidney Foundation (A Unifying Approach to GFR Estimation: Recommendations of the NKF-ASK Task Force on Reassessing the Inclusion of Race in Diagnosing Kidney Disease, JASN 2020). The CKD-EPI equation should not be used for patients with unstable renal function and has not been validated in children and those over 70. Current interpretive data was last reviewed 2021. Testing performed by: [facility], [address] [place] [address]., [address] Blood 01/31/2025 2:05 PM CDT 01/31/2025 3:54 PM CDT Nallely Beebe CNM LAB BLOOD ORDERABLES Final Re sult [facility] [address] [facility] Department [place] [address] * (ABNORMAL) CBC without differential (01/31/2025 2:05 PM CDT) WBC 14.92(H) 3.80 - 9.90 K/cumm Comment:Testing performed by : [address] [address] Hgb 11.1(L) 11.9 - 15.5 g/dL MICHELLE Comment:Testing performed by : [address], [address] Hct 33.2(L) 35.6 - 45.5 % MICHELLE Comment:Testing performed by : [address] [address] Plt 251 150 - 400 K/cumm MICHELLE Comment:Testing performed by : [address] [address] MPV 9.8 9.1 - 12.3 fL MICHELLE Comment:Testing performed by : [address] [address] RBC 3.69(L) 3.90 - 5.20 M/cumm MICHELLE Comment:Testing performed by : [address] [address] MCV 90.0 81.3 - 96.4 fL MICHELLE Comment:Testing performed by : [address] [address] MCH 30.1 27.1 - 33.3 pg MICHELLE VALDEZ Comment:Testing performed by : [address] [address] MCHC 33.4 32.3 - 35.7 g/dL MICHELLE Comment:Testing performed by : [address] [address] RDW CV 12.1 11.1 - 14.9 % MICHELLE VALDEZ Comment:Testing performed by : [address] [address] RDW SD 39.8 35.7 - 48.1 fL MICHELLE VALDEZ Comment:Testing performed by : [address] [address] NRBC abs 0.00 0.00 - 0.01 K/cumm MICHELLE VALDEZ Comment:Testing performed by : [address] [address] Blood 01/31/2025 2:05 PM CDT 01/31/2025 3:55 PM CDT Nallely ISAAC LAB BLOOD ORDERABLES Final Re sult MICHELLE [address] [facility] Department [place] [address] * (ABNORMAL) Comprehensive metabolic panel (01/31/2025 2:05 PM CDT) Sodium 140 135 - 145 mmol/L Comment:Testing performed by : [address] [address] Potassium, pl 4.2 3.3 - 4.9 mmol/L MICHELLE VALDEZ Comment:Testing performed by : [address] [address] Chloride 106 97 - 110 mmol/L MICHELLE VALDEZ Comment:Testing performed by : [address] [address] CO2 21(L) 22 - 32 mmol/L MICHELLE VALDEZ Comment:Testing performed by : [address] [address] Anion gap 13 2 - 15 mmol/L MICHELLE VALDEZ Comment:Testing performed by : [address] [address] BUN 5(L) 6 - 25 mg/dL MICHELLE VALDEZ Comment:Testing performed by : [address] [place]., [address] Creatinine 0.60 0.60 - 1.10 mg/dL MICHELLE Comment:Testing performed by : [address] [address] Glucose 121 70 - 199 mg/dL MICHELLE Comment: Interpretive Data Fasting glucose >/= 126 mg/dl is diagnostic for diabetes. Fasting is defined as no caloric intake for at least 8 hours. Fasting glucose between 100 mg/dl to 125 mg/dl is diagnostic of prediabetes. In a patient with classic symptoms of hyperglycemia or hyperglycemic crisis, a random glucose >/= 200 mg/dl is diagnostic for diabetes. In the absence of unequivocal hyperglycemia, results should be confirmed by repeat testing. The classification and Diagnosis of Diabetes Diabetes Care 2021; 46: S19-S40. Current interpretive data was last revised 2022. Testing performed by: [address] [address] Calcium 8.9 8.5 - 10.3 mg/dL MICHELLE Comment:Testing performed by : [address] [address] Bilirubin, total <0.2 0.1 - 1.2 mg/dL [facility] Comment:Testing performed by : [address] [address] Protein, pl 6.1(L) 6.5 - 8.5 g/dL MICHELLE Comment:Testing performed by : [address] [address] Albumin 3.6 3.5 - 5.0 g/dL MICHELLE Comment:Testing performed by : [address] [address] Alk phos 132(H) 40 - 130 Units/L MICHELLE Comment:Testing performed by : [address] [address] ALT 14 7 - 45 Units/L MICHELLE Comment:Testing performed by : [address] [address] AST 20 10 - 45 Units/L MICHELLE Comment:Testing performed by : [address] [address] Blood 01/31/2025 2:05 PM CDT 01/31/2025 3:54 PM CDT Nallely Beebe CNM LAB BLOOD ORDERABLES Final Re sult Performing Organization Address [facility] Co de Phone Number [facility] [place] [address] * Protein / creatinine ratio, urine, random (01/31/2025 2:00 PM CDT) Protein, ur, quant 5.0 mg/dL Comment: Interpretive Data No reference range established. Current interpretive data was last revised 2019. Testing performed by: [address] [address] Creatinine Ur 29.4 mg/dL MICHELLE Comment: Interpretive Data No reference range established. Current interpretive data was last revised 2019. Testing performed by: [address] [address] Protein/creatinin e ratio 170.1 0.0 - 180.0 mg/g CR MICHELLE Comment:Testing performed by : [address] [address] Urine 01/31/2025 2:00 PM CDT 01/31/2025 3:53 PM CDT Nallely Beebe CNM LAB URINE ORDERABLES Final Re sult Performing Organization Address [facility] Co de Phone Number [facility] [address] [facility] [place] [address] * N. gonorrhoeae/C. trachomatis Amplification Endocervical (01/07/2025 11:11 AM CDT) [facility] C. trachomatis Not Detected Not Detected Comment:Testing performed by : [address] [address] N. gonorrhoeae Not Detected Not Detected MICHELLE VALDEZ Comment: Interpretive Data This assay detects Chlamydia trachomatis and Neisseria gonorrhoeae by nucleic acid amplification testing (NAAT). This assay has been cleared by the [place] Food and Drug administration. The performance characteristics of this test have been verified by the [facility]. The performance characteristics of this test have not been evaluated in individuals less than 14 years of age. Current Interpretive Data last revised 2023. Testing performed by: [address] [address] Endocervical (None) 01/08/20 11:11 AM CDT 01/07/2025 11:16 AM CDT us Alfie Browne MD LAB MICROBIOLOGY - GENERAL ORDERABLES Final Result MICHELLE VALDEZ [address] [facility] Department [place] [address] * Vaginitis panel Vaginal (01/07/2025 11:11 AM CDT) Bacterial Vaginosis Not Detected Not Detected Comment: A negative result does not preclude a possible infection. Results should be considered in conjunction with clinical presentation to determine the disease status. Testing performed by: [address] [address] Fatoumata group Not Detected Not Detected MICHELLE Comment:Testing performed by : [address] [address] Fatoumata glabrata/ krusei Not Detected Not Detected MICHELLE Comment:Testing performed by : [address] [address] Trichomonas DNA Not Detected Not Detected MICHELLE Comment:Testing performed by : [address] [address] Vaginal 01/07/2025 11:1 1 AM CDT 01/07/2025 11:16 AM CDT Narrative MICHELLE VALDEZ - 01/07/2025 12:24 PM CDT The [employer] Xpert Xpress MVP test detects DNA targets from anaerobic bacteria associated with bacterial vaginosis, Fatoumata species associated with vulvovaginal candidiasis, and Trichomonas vaginalis by nucleic acid amplification testing (NAAT). Results should be interpreted in conjunction with other clinical data. This test cannot be used to assess therapeutic success or failure because target nucleic acids may persist following antimicrobial therapy. This test has been cleared by the [place] Food and Drug Administration to aid in the diagnosis of vaginal infections in symptomatic women ages 14 and older. The performance characteristics of this test have been verified by the [facility]. The [employer] Xpert Xpress MVP test detects DNA targets from anaerobic bacteria associated with bacterial vaginosis, Fatoumata species associated with vulvovaginal candidiasis, and Trichomonas vaginalis by nucleic acid amplification testing (NAAT). Results should be interpreted in conjunction with other clinical data. This test cannot be used to assess therapeutic success or failure because target nucleic acids may persist following antimicrobial therapy. This test has been cleared by the [place] Food and Drug Administration to aid in the diagnosis of vaginal infections in symptomatic women ages 14 and older. The performance characteristics of this test have been verified by the [facility]. Alfie Browne MD LAB MICROBIOLOGY - GENERAL ORDERABLES Final Result [facility] [address] [facility] Department [place] [address] * eGFR (01/07/2025 10:55 AM CDT) eGFR >90 >=60 mL/min/1. 73 m2 Comment: Interpretive Data Reference Interval Normal >/= 90 mL/min/1.73m2 Mildly decreased* 60 - 89 mL/min/1.73m2 Mildly to moderately decreased 45 - 59 mL/min/1.73m2 Moderately to severely decreased 30 - 44 mL/min/1.73m2 Severely decreased 15 - 29 mL/min/1.73m2 Kidney Failure < 15 mL/min/1.73m2 *Relative to young adult level Estimated glomerular filtration rate is determined by the 2020 CKD-EPI equation recommended by the National Kidney Foundation (A Unifying Approach to GFR Estimation: Recommendations of the NKF-ASK Task Force on Reassessing the Inclusion of Race in Diagnosing Kidney Disease, JASN 2020). The CKD-EPI equation should not be used for patients with unstable renal function and has not been validated in children and those over 70. Current interpretive data was last reviewed 2021. Testing performed by: [address] [address] Blood 01/07/2025 10:5 5 AM CDT 01/07/2025 11:02 AM CDT us Alfie Browne MD LAB BLOOD ORDERABLES Final Result [facility] [address] [facility] Department [place] [address] * (ABNORMAL) Differential, auto (01/07/2025 10:55 AM CDT) Neutrophil abs 14.71(H) 1.50 - 6.50 K/cumm Comment:Testing performed by : [address] [address] Imm gran abs 0.47(H) 0.00 - 0.10 K/cumm MICHELLE Comment:Testing performed by : [address] [address] Lymphocyte abs 1.97 0.80 - 3.30 K/cumm MICHELLE Comment:Testing performed by : [address] [address] Monocyte abs 0.63 0.20 - 0.80 K/cumm MICHELLE Comment:Testing performed by : [address] [address] Eosinophil abs 0.07 0.00 - 0.50 K/cumm MICHELLE Comment:Testing performed by : [address] [address] Basophil abs 0.07 0.00 - 0.10 K/cumm MICHELLE Comment:Testing performed by : [address] [address] Neutrophil pct 82.1 % MICHELLE Comment: Interpretive Data Percent cell count reference ranges are not reported, since discordance with absolute values may lead to misinterpretation of CBC data. Current Interpretive Data was last revised on 2017. Testing performed by: [address] [address] Imm gran pct 2.6 % [facility] Comment: Interpretive Data Percent cell count reference ranges are not reported, since discordance with absolute values may lead to misinterpretation of CBC data. Current Interpretive Data was last revised on 2017. Testing performed by: [address] [address] Lymphocyte pct 11.0 % [facility] Comment: Interpretive Data Percent cell count reference ranges are not reported, since discordance with absolute values may lead to misinterpretation of CBC data. Current Interpretive Data was last revised on 2017. Testing performed by: [address] [address] Monocyte pct 3.5 % [facility] Comment: Interpretive Data Percent cell count reference ranges are not reported, since discordance with absolute values may lead to misinterpretation of CBC data. Current Interpretive Data was last revised on 2017. Testing performed by: [address] [address] Eosinophil pct 0.4 % [facility] Comment: Interpretive Data Percent cell count reference ranges are not reported, since discordance with absolute values may lead to misinterpretation of CBC data. Current Interpretive Data was last revised on 2017. Testing performed by: [address] [address] Basophil pct 0.4 % [facility] Comment: Interpretive Data Percent cell count reference ranges are not reported, since discordance with absolute values may lead to misinterpretation of CBC data. Current Interpretive Data was last revised on 2017. Testing performed by: [address] [address] Blood 01/07/2025 10:5 5 AM CDT 01/07/2025 11:02 AM CDT us Alfie Browne MD LAB BLOOD ORDERABLES Final Result MICHELLE [address] [facility] Department [place] [address] * (ABNORMAL) Urinalysis reflex to microscopic and culture Urine (01/07/2025 10:55 AM CDT) Color, ur Yellow Yellow Comment:Testing performed by : [address] [address] Clarity, ur Clear Clear MICHELLE Comment:Testing performed by : [address], [place]., [address] Specific gravity, ur 1.019 1.003 - 1.030 MICHELLE Comment:Testing performed by : [address], [place]., [address] pH, urine 7.0 MICHELLE Comment: Interpretive Data U rine pH is affected by diet, medications, systemic acid-base disturbances, and renal tubular function. pH may affect urinary stone formation. For example, urine pH below 6.0 may help reduce the tendency for calcium phosphate stones and pH greater than 6.0 may reduce the tendency for uric acid stone formation. Source: [facility] Current Interpretive Data was last revised on 2017 Testing performed by: [address] [address] Protein, ur ql Negative Negative MICHELLE Comment:Testing performed by : [address] [address] Glucose, ur ql Negative Negative MICHELLE Comment:Testing performed by : [address] [address] Ketones, ur Trace(A) Negative MICHELLE Comment:Testing performed by : [address] [address] Bilirubin, ur Negative Negative MICHELLE Comment:Testing performed by : [address] [address] Blood, ur Negative Negative MICHELLE Comment:Testing performed by : [address] [address] Urobilinogen, ur <2.0 <2.0 mg/dL MICHELLE Comment:Testing performed by : [address] [address] Nitrite, ur Negative Negative MICHELLE Comment:Testing performed by : [address] [address] Leukocyte esterase, ur Negative Negative MICHELLE VALDEZ Comment:Testing performed by : [address] [address] UA reflex comment Reflex conditions for microscopic UA and culture not met. MICHELLE Comment:Testing performed by : [address] [address] Urine 01/07/2025 10:5 5 AM CDT 01/07/2025 11:02 AM CDT us Alfie Browne MD LAB MICROBIOLOGY - GENERAL ORDERABLES Final Result MICHELLE VALDEZ [address] [facility] Department [place] [address] * (ABNORMAL) CBC with auto differential (01/07/2025 10:55 AM CDT) WBC 17.92(H) 3.80 - 9.90 K/cumm Comment:Testing performed by : [address] [address] Hgb 11.5(L) 11.9 - 15.5 g/dL MICHELLE Comment:Testing performed by : [address] [address] Hct 33.7(L) 35.6 - 45.5 % MICHELLE VALDEZ Comment:Testing performed by : [address] [address] Plt 258 150 - 400 K/cumm MICHELLE Comment:Testing performed by : [address] [address] MPV 9.2 9.1 - 12.3 fL MICHELLE Comment:Testing performed by : [address] [address] RBC 3.69(L) 3.90 - 5.20 M/cumm MICHELLE VALDEZ Comment:Testing performed by : [address] [address] MCV 91.3 81.3 - 96.4 fL MICHELLE VALDEZ Comment:Testing performed by : [address] [address] MCH 31.2 27.1 - 33.3 pg MICHELLE VALDEZ Comment:Testing performed by : [facility], [address] [place] [address]., [address] MCHC 34.1 32.3 - 35.7 g/dL MICHELLE VALDEZ Comment:Testing performed by : [facility], [address] [place] [address]., [address] RDW CV 12.1 11.1 - 14.9 % MICHELLE VALDEZ Comment:Testing performed by : [facility], [address] [place] [address]., [address] RDW SD 40.0 35.7 - 48.1 fL MICHELLE VALDEZ Comment:Testing performed by : [address] [address] NRBC abs 0.00 0.00 - 0.01 K/cumm MICHELLE VALDEZ Comment:Testing performed by : [address] [address] Blood 01/07/2025 10:5 5 AM CDT 01/07/2025 11:02 AM CDT us Alfie Browne MD LAB BLOOD ORDERABLES Final Result MICHELLE VALDEZ [facility] Department [place] [address] * Urine culture Urine (01/07/2025 10:55 AM CDT) Report Final Report: Less than 100,000 colonies/mL (clinically insignificant growth based on current clinical standards) Comment:Testing performed by : [facility], [address] [facility], [place]., [address] Organism (CLINICALLY INSIGNIFICANT GROWTH MICHELLE VALDEZ Urine 01/07/2025 10:5 5 AM CDT 01/07/2025 4:50 PM CDT Narrative MICHELLE VALDEZ - 01/08/2025 10:29 PM CDT Testing performed by [facility] Micro[facility] Laboratory ([phone]) us Kirsten Thomas MD LAB MICROBIOLOGY - GENERAL ORDERABLES Final Result MICHELLE [address] [facility] Department [place] [address] * (ABNORMAL) Comprehensive metabolic panel (01/07/2025 10:55 AM CDT) Sodium 134(L) 135 - 145 mmol/L Comment:Testing performed by : [address] [address] Potassium, pl 4.2 3.3 - 4.9 mmol/L MICHELLE Comment:Testing performed by : [address] [address] Chloride 104 97 - 110 mmol/L MICHELLE Comment:Testing performed by : [address] [address] CO2 20(L) 22 - 32 mmol/L MICHELLE Comment:Testing performed by : [address] [address] Anion gap 10 2 - 15 mmol/L MICHELLE Comment:Testing performed by : [address] [address] BUN 6 6 - 25 mg/dL MICHELLE Comment:Testing performed by : [address] [address] Creatinine 0.40(L) 0.60 - 1.10 mg/dL MICHELLE Comment:Testing performed by : [address] [address] Glucose 112 70 - 199 mg/dL MICHELLE Comment: Interpretive Data Fasting glucose >/= 126 mg/dl is diagnostic for diabetes. Fasting is defined as no caloric intake for at least 8 hours. Fasting glucose between 100 mg/dl to 125 mg/dl is diagnostic of prediabetes. In a patient with classic symptoms of hyperglycemia or hyperglycemic crisis, a random glucose >/= 200 mg/dl is diagnostic for diabetes. In the absence of unequivocal hyperglycemia, results should be confirmed by repeat testing. The classification and Diagnosis of Diabetes Diabetes Care 202; 46: S19-S40. Current interpretive data was last revised 2022. Testing performed by: [address] [address] Calcium 9.1 8.5 - 10.3 mg/dL MICHELLE Comment:Testing performed by : [address] [address] Bilirubin, total 0.2 0.1 - 1.2 mg/dL MICHELLE Comment:Testing performed by : [address] [address] Protein, pl 6.4(L) 6.5 - 8.5 g/dL MICHELLE Comment:Testing performed by : [address], [place]., [address] Albumin 3.6 3.5 - 5.0 g/dL MICHELLE Comment:Testing performed by : [address] [address] Alk phos 106 40 - 130 Units/L MICHELLE Comment:Testing performed by : [address] [address] ALT 24 7 - 45 Units/L MICHELLE Comment:Testing performed by : [address] [address] AST 19 10 - 45 Units/L MICHELLE Comment:Testing performed by : [address] [address] Blood 01/07/2025 10:5 5 AM CDT 01/07/2025 11:02 AM CDT us Alfie Browne MD LAB BLOOD ORDERABLES Final Result MICHELLE [address] [facility] Department of Laboratories [place], [place] [id number] * GTT 100gm 3hr gestational diagnostic (01/06/2025 12:36 PM CDT) GTT 100g 3h gest 134 <=139 mg/dL Comment:Testing performed by : [address] [address] Blood 01/06/2025 12:3 6 PM CDT 01/06/2025 4:32 PM CDT Roger Preston MD LAB BLOOD ORDERABLES Fin al Result Performing Organization Address [facility] de Phone Number MICHELLE [address] [facility] [place] [address] * GTT 100gm 2hr gestational diagnostic (01/06/2025 11:32 AM CDT) GTT 100g 2h gest 89 <=154 mg/dL Comment:Testing performed by : [address] [address] Blood 01/06/2025 11:3 2 AM CDT 01/06/2025 12:49 PM CDT Roger Preston MD LAB BLOOD ORDERABLES Fin al Result Performing Organization Address [facility] de Phone Number [address] [facility] [place] [address] * GTT 100gm 1hr gestational diagnostic (01/06/2025 10:32 AM CDT) GTT 100g 1h gest 106 <=179 mg/dL Comment:Testing performed by : [address] [address] Blood 01/06/2025 10:3 2 AM CDT 01/06/2025 12:51 PM CDT Roger Preston MD LAB BLOOD ORDERABLES Fin al Result Performing Organization Address [facility] Co de Phone Number [id number] [facility] [place] [address] * GTT 100gm fasting gestational diagnostic (01/06/2025 9:30 AM CDT) GTT 100g fasting gest 91 <=94 mg/dL Comment: Interpretive data 100 gram 3 hour Gestational Diabetes Diagnostic Diagnostic criteria require that 2 or more of the following criteria be met: Fasting: > or = to 95 mg/dL 1 hour: > or = to 180 mg/dL 2 hour: > or = to 155 mg/dL 3 hour: > or = to 140 mg/dL Reference Interval Info: Maisha Bennett,et al. Martins-Marlysan Compared with National Diabetes Data Group Criteria for Diagnosing Gestational Diabetes. Obstetrics and Gynecology 2016:127 (5): 893-898. Diabetes Care 2020; 43(Suppl 1):S14-31 Current interpretive data was last revised 2020. Testing performed by: [facility], [address] [place] [address]., [address] Blood 01/06/2025 9:30 AM CDT 01/06/2025 10:29 AM CDT Roger Preston MD LAB BLOOD ORDERABLES Fin al Result Performing Organization Address [facility] Co de Phone Number [facility] [place] [address] * Hepatitis C antibody Blood (07/31/2024 10:39 AM MEDICAL SUPERVISOR) Hep C Ab Nonreactive Nonreactive Comment: Antibodies to HCV not detected. Does NOT exclude the possibility of recent exposure to HCV. Current interpretive data was last revised on 22 Interpretive Data Nonreactive: Antibodies to HCV not detected. Does NOT exclude the possibility of recent exposure to HCV. Equivocal: Equivocal for HCV antibodies. Supplemental molecular testing will be automatically performed to determine infection status in accordance with current CDC screening recommendations. Reactive: Positive for HCV antibodies. This may represent current or past HCV infection. Supplemental molecular testing will be automatically performed to determine current infection status in accordance with current CDC screening recommendations. Interpretive data was last revised on 2019. Blood 07/31/2024 10:3 9 AM MEDICAL SUPERVISOR 07/31/2024 4:45 PM MEDICAL SUPERVISOR Grady Willis MD LAB MICROBIOLOGY - GENERAL ORDERABLES Final Result Performing Organization Address [facility] Co de Phone Number [facility] [address] [facility] [place] [address] from Last 3 Months or Most Recently Relevant to Health Maintenance Insurance [employer] ACCESS CHOICE Member Subscriber Plan / Payer (Ef fective 2024-Present) Name:Ryder Bernard Relation to Subscriber:Self Name:Ryder Bernard Payer ID:[id number] (NAIC) Type:[employer] Address: [address] [employer] ACCESS CHOICE [facility] [employer] ACCESS CHOICE [employer] ACCESS CHOICE Member Subscriber Plan / Payer (Ef fective 2024-Present) Name:Ryder Bernard Relation to Subscriber:Spouse Name:HECTOR BERNARD Date of :2000 (Home) Address: [address] [place] [address] Payer ID:[id number] (NAIC) Type:[employer] Address: [facility] [id number] [place] [id number] Advance Directives For more information, please contact: [phone] * Full Code (Latest Code Status on File) Date Activated Date Inactivated Comments 03/03/2025 4:23 PM 03/05/2025 5:10 PM * Full Code Date Activated Date Inactivated Comments 03/02/2025 9:02 PM 03/03/2025 4:23 PM Full CPR in ca se of cardiopulmonary arrest * Full Code Date Activated Date Inactivated Comments 11/08/2020 9:35 PM 11/10/2020 9:16 PM Care Teams Aeronautical Engineering Technologist Relationship Specialty Start Date End Date Ara Ball NP PCP - General Nurse Practitioner 12/03/20 Jet Portillo MD Referring Physician Cardiology 06/01/22 Cornelia Galvez, construction equipment mechanic Failure Coordinator Transplant 09/27/23
--- OUTSIDE RECORDS SUMMARY | 2025-03-23 17:44 | XMS_ITS | Encounter Summary ---
Author Organization [facility] Address [address] [place] [address] Care Team Providers Care Electroencephalogram Technologist Name Role Phone Ara Ball NP Primary Care Provider +09-02 Jet Portillo MD Unavailable [phone] Cornelia Galvez RN Unavailable Unavailable Encounter Details Date Type Department Care Team (Latest Contact Info) Description 02/03/2025 Results Follow-Up [facility] Obstetrical Gynecology [address] [phone] Nallely Beebe CNM [address] [address] Protein / creatinine ratio, urine, random, Comprehensive metabolic panel, CBC without differential, eGFR Social History Tobacco Use Types Packs/Day Years Used Date Smoking Tobacco: Never Smokeless Tobacco: Never [place] Depression Scale Answer Date Recorded [place] Depression Scale Total 3 12/20/2024 The thought of harming myself has occurred to me . Never 12/20/2024 Personal Safety Answer Date Recorded Have you ever been in or are you currently in a harmful physical or emotional relationship or is someone making you feel afraid or unsafe? Denies 01/07/2025 Comments Yes Sex and Gender Information Value Date Recorded Sex Assigned at Not on file Legal Sex Female 11:12 AM CDT Gender Identity Not on file Sexual Orientation Not on file documented as of this encounter Plan of Treatment Not on file documented as of this encounter Visit Diagnoses Not on filedocumented in this encounter Care Teams Electroencephalogram Technologist Relationship Specialty Start Date End Date Ara Ball NP PCP - General Nurse Practitioner 12/03/20 Jet Portillo MD Referring Physician Cardiology 06/01/22 Cornelia Galvez, prenatal genetic counselor Failure Coordinator Transplant 09/27/23 documented as of this encounter
--- OUTSIDE RECORDS SUMMARY | 2025-03-23 17:44 | XMS_ITS | Encounter Summary ---
Author Organization [facility] Address [address] [place] [address] Care Team Providers Care Population Health Manager Name Role Phone Ara Ball NP Primary Care Provider +09-02 Jet Portillo MD Unavailable [phone] Cornelia Galvez RN Unavailable Unavailable Encounter Details Date Type Department Care Team (Latest Contact Info) Description 02/17/2025 Results Follow-Up [facility] Obstetrical Gynecology [address] [phone] Nallely Beebe CNM [address] [address] Group B streptococcus PCR Vaginal/Rectal Social History Tobacco Use Types Packs/Day Years Used Date Smoking Tobacco: Never Smokeless Tobacco: Never [place] Depression Scale Answer Date Recorded [place] Depression Scale Total 3 12/20/2024 The thought [...] on filedocumented in this encounter Care Teams Population Health Manager Relationship Specialty Start Date End Date Ara Ball NP PCP - General Nurse Practitioner 12/03/20 Jet Portillo MD Referring Physician Cardiology 06/01/22 Cornelia Galvez, field advisor Failure Coordinator Transplant 09/27/23 documented as of this encounter
--- OUTSIDE RECORDS SUMMARY | 2025-03-23 17:44 | XMS_ITS | Encounter Summary ---
Author Organization [facility] Address [address] [place] [address] Care Team Providers Care Personal Injury Specialist Name Role Phone Ara Ball NP Primary Care Provider +09-02 Jet Portillo MD Unavailable [phone] Cornelia Galvez RN Unavailable Unavailable Encounter Details Date Type Department Care Team (Late st Contact Info) Description 03/10/2025 Results Follow-Up [facility] Obstetrical Gynecology [address] [phone] Lynette Edwards CNM [address] [address] CBC without differential, Comprehensive metabolic panel, eGFR Social History Tobacco Use Types Packs/Day Years Used Date Smoking Tobacco: Never Smokeless Tobacco: Never Social Connection and Isolat ion Panel [NHANES] Answer Date Recorded In a typical week, how many times do you talk on the phone with family, friends, or neighbors? More than three times a week 03/02/2025 How often do you get togethe r with friends or relatives? Once a week 03/02/2025 Attends [employer] Not on file 03/02 Active Member [...] staff should administer the PHQ-9) 0 03/02/2025 [facility] Stress Questionnaire Answer Date [...] things needed for daily living? No 03/02/2025 [place] Depression Scale Answer Date Recorded [place] Depression Scale Total 5 03/04/2025 The thought [...] any time in the past 12 m [facility], were you homeless or living in a senior care (including now)? No 03/02/2025 Personal Safety Answer [...] on filedocumented in this encounter Care Teams Personal Injury Specialist Relationship Specialty Start Date End Date Ara Ball NP PCP - General Nurse Practitioner 12/03/20 Jet Portillo MD Referring Physician Cardiology 06/01/22 Cornelia Galvez, trimmer operator Failure Coordinator Transplant 09/27/23 documented as of this encounter
--- OUTSIDE RECORDS SUMMARY | 2025-03-23 17:44 | XMS_ITS | Referral Summary ---
Author Organization [facility] Address [address] [place] [address] Care Team Providers Care Brick Burner Name Role Phone Ara Ball NP Primary Care Provider +1- Jet Portillo MD Unavailable Cornelia Galvez RN Unavailable Unavailable Encounters Date Type Department Care Team Description 03/21/2025 Telephone [facility] Obstetrical Gynecology [address] [place] [phone] Grady Willis MD 03/21/2025 Telephone [facility] Obstetrical Gynecology [address] [place] [phone] Grady Willis MD 03/10/2025 Results Follow-Up [facility] Obstetrical Gynecology [address] [place] [phone] Lynette Edwards CNM CBC without differential, Comprehensive metabolic panel, eGFR 03/07/2025 9:[address] [facility] Building [address] [place] [address] Pre-eclampsia in period 03/07/2025 11:45 AM CDT Clinical Support [facility] Obstetrical Gynecology [address] [place] [address] [phone] Hypertension affecting , third trimester (Primary Dx) 03/02/2025 8:47 PM CDT - 03/05/2025 1:04 PM CDT Hospital Encounter [address] [address] Kirsten Thomas MD Kelsey, Sekou Khary, MD Encounter for elective induction of labor (Primary Dx); Pre-eclampsia in period; care following vaginal delivery [Z39.2] Discharge Disposition: Discharge to home or self care 03/03/2025 4:01 AM CDT Anesthesia Event [address] [address] Castillo Schuler, Malika Berkowitz CRNA 02/25/2025 3:13 PM CDT - 02/26/2025 12:32 PM CDT Hospital Encounter [address] [address] Blanca Preston MD Chronic nonintractable headache, unspecified headache type (Primary Dx); Hypertension affecting in third trimester; 38 weeks gestation of Discharge Disposition: Discharge to home or self care 02/25/2025 Telephone [facility] Obstetrical Gynecology [address] [place] [address] [phone] Nallely Beebe CNM blood pressures 02/24/2025 5:32 PM CDT - 02/24/2025 6:44 PM CDT Hospital Encounter [facility] [address] [place] [address] Kirsten Thomas MD Discharge Disposition: Discharge to home or self care 02/24/2025 11:25 AM CDT Lab [facility] Office Building [address] [place] [address] [facility] 02/24/2025 10:45 AM CDT Office Visit [facility] Obstetrical Gynecology [address] [place] [address] [phone] Lynette Edwards CNM Supervision of normal first , antepartum (Primary Dx); Swelling 02/17/2025 Results Follow-Up [facility] Obstetrical Gynecology [address] [place] [phone] Nallely Beebe CNM Group B streptococcus PCR Vaginal/Rectal 02/17/2025 3:45 PM CDT Office Visit [facility] Obstetrical Gynecology [address] [place] [address] [phone] Lynette Edwards CNM Supervision of normal first , antepartum (Primary Dx) 02/14/2025 3:49 PM CDT - 02/14/2025 11:[address] [facility] Lab [employer] [place] [address] Third trimester Discharge Disposition: Discharge to home or self care 02/14/2025 1:00 PM CDT Ancillary Procedure [facility] Obstetrical Gynecology [address] [place] [address] [phone] Uterine size-date discrepancy in third trimester 02/14/2025 1:30 PM CDT Office Visit [facility] Obstetrical Gynecology [address] [place] [phone] Nallely Beebe CNM Third trimester (Primary Dx) 02/03/2025 Results Follow-Up [facility] Obstetrical Gynecology [address] [place] [address] [phone] Nallely Beebe CNM Protein / creatinine ratio, urine, random, Comprehensive metabolic panel, CBC without differential, eGFR 01/31/2025 2:00 PM CDT Lab [facility] Office Building [address] [place] [address] 34 weeks gestation of 01/31/2025 Telephone [facility] Obstetrical Gynecology [address] [place] [phone] Nallely Beebe CNM 01/31/2025 1:30 PM CDT Office Visit [facility] Obstetrical Gynecology [address] [place] [address] [phone] Nallely Beebe CNM 34 weeks gestation of (Primary Dx) 01/13/2025 10:15 AM CDT Office Visit [facility] Obstetrical Gynecology [address] [place] [address] [phone] Nallely Beebe CNM 32 weeks gestation of (Primary Dx) 01/09/2025 Results Follow-Up [facility] Obstetrical Gynecology [address] [place] [phone] Kirsten Thomas MD N. gonorrhoeae/C. trachomatis Amplification Endocervical, Urine culture Urine 01/08/2025 Results Follow-Up [facility] [address] [place] [address] Roger Preston MD GTT 100gm fasting gestational diagnostic, GTT 100gm 1hr gestational diagnostic, GTT 100gm 2hr gestational diagnostic, GTT 100gm 3hr gestational diagnostic 01/07/2025 10:04 AM CDT - 01/07/2025 12:30 PM CDT Emergency [facility] [address] [place] [phone] Kirsten Thomas MD Low back pain during in third trimester (Primary Dx) Discharge Disposition: Discharge to home or self care 01/07/2025 Documentation [facility] Obstetrical Gynecology [address] [place] [phone] Nallely Beebe CNM 01/06/2025 9:25 AM CDT Lab [facility] Office Building [address] [place] [address] Abnormal GTT (glucose tolerance test) 01/03/2025 2:15 PM CDT Office Visit [facility] Obstetrical Gynecology [address] [place] [phone] Nallely Beebe CNM Third trimester (Primary Dx) 12/24/2024 Results Follow-Up [facility] Obstetrical Gynecology [address] [facility] [address] [place] [phone] Roger Preston MD CBC without differential, RPR Blood, HIV 1/2 Antibody plus p24 Antigen Blood, GTT 50gm 1hr gestational screen from Last 3 Months Allergies Active Allergy Reactions Criticality Noted Date Comments Other Other (See comments) Low 10/28/2016 Tryptans contraindicated-pt history of hemiplegic migraine. Patient has never taken this for that reason. Sumatriptan Other (See comments) Low 10/28/2016 Medications vit D3-vit L-mobjfiwvf-pr ps [phone] hvzo-xss-pg-mg tablet Take by mouth Active vit 21-bwcf-skauf- dha 27mg iron- 800 mcg-250 mg capsule Take by mouth Active vitamin Z16-ganhe acid 0.5-1 mg tablet Take by mouth [...] hours. 9 tablet 5 07/31/20 24 025 Discontinued(Th erapy completed) magnesium gluconate 200 mg tabletIndicati [...] pain controlled MOF: - infant is tongue tie, working with and peds MOC: undecided - for further conversation VTE ppx: The patient has the following MAJOR risk factors none and the following MINOR risk factors BMI 30-39 and preeclampsia. enoxaparin 40 mg daily ordered for VTE prophylaxis. Mood: stable Migraines: plan for Nurtec with discharge. Has appointment with neuro in March. Fransisca/beatrice working well with caffeine. Denies headache currently [...] in period 03/04/2025 Overview (03/05/2025): 03/04/2025, PPD#1 (JF): Criteria for pre eclampsia [...] labs normal Hgb: 10.8 GBS negative SVE: 880/-1, swelling noted - IV diphenhydramine and TUMS [...] q shift Plan: Monitor BPs Labs: LFTs /; Creatinine 0.78; Plts 268; Pr/Cr 0.34 Monitor [...] Migraine with aura 05/29/2017 Hemiplegic migraine 05/29/2017 Immunizations Immunization Administration Dates Next Due Influenza, Unspecified 05/28/2020 Tdap 01/03/2025 Social History Tobacco Use Types Packs/Day Years [...] or relatives? Once a week 03/02/2025 Attends [employer] Not on file 03/02 Active Member [...] staff should administer the PHQ-9) 0 03/02/2025 [facility] - Occupational Stress Questionnaire Answer Date Recorded [...] things needed for daily living? No 03/02/2025 Viola Depression Scale Answer Date Recorded Viola Depression Scale Total 5 03/04/2025 The thought [...] any time in the past 12 m [facility], were you homeless or living in a senior living (including now)? 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 Testing performed by: [address] [address] Blood 03/07/2025 9:58 AM CDT 03/07/2025 12:36 PM CDT us Lynette Edwards CNM LAB BLOOD ORDERABLE S Final Result [facility] [facility] Department [place] [address] * (ABNORMAL) CBC without differential (03/07/2025 9:58 AM CDT) WBC 11.86(H) 3.80 - 9.90 K/cumm Comment:Testing performed by : [address] [address] Hgb 9.6(L) 11.9 - 15.5 g/dL [facility] Comment:Testing performed by : [address] [address] Hct 29.4(L) 35.6 - 45.5 % [facility] Comment:Testing performed by : [address] [address] Plt 296 150 - 400 K/cumm [facility]Z Comment:Testing performed by : [address] [address] MPV 9.1 9.1 - 12.3 fL [facility] Comment:Testing performed by : [address] [address] RBC 3.27(L) 3.90 - 5.20 M/cumm [facility] Comment:Testing performed by : [address] [address] MCV 89.9 81.3 - 96.4 fL [facility] Comment:Testing performed by : [address] [address] MCH 29.4 27.1 - 33.3 pg [facility] Comment:Testing performed by : [address] [address] MCHC 32.7 32.3 - 35.7 g/dL [facility] Comment:Testing performed by : [address] [address] RDW CV 13.5 11.1 - 14.9 % [facility] Comment:Testing performed by : [address] [address] RDW SD 43.9 35.7 - 48.1 fL [facility] Comment:Testing performed by : [address] [address] NRBC abs 0.00 0.00 - 0.01 K/cumm [facility] Comment:Testing performed by : [address] [address] Blood 03/07/2025 9:58 AM CDT 03/07/2025 10:34 AM CDT us Lynette Edwards [facility] LAB BLOOD ORDERABLE S Final Result MICHELLE [address] [facility] Department of Laboratories [place], [place] [phone] * (ABNORMAL) Comprehensive metabolic panel (03/07/2025 9:58 AM CDT) Sodium 139 135 - 145 mmol/L Comment:Testing performed by : [address] [address] Potassium, pl 4.8 3.3 - 4.9 mmol/L [facility] Comment:Testing performed by : [address], [address] Chloride 106 97 - 110 mmol/L [facility] Comment:Testing performed by : [address] [address] CO2 21(L) 22 - 32 mmol/L [facility] Comment:Testing performed by : [address] [address] Anion gap 12 2 - 15 mmol/L [facility] Comment:Testing performed by : [address] [address] BUN 10 6 - 25 mg/dL [facility] Comment:Testing performed by : [address], [place]., [address] Creatinine 0.72 0.60 - 1.10 mg/dL [facility] Comment:Testing performed by : [address] [address] Glucose 79 70 - 199 mg/dL [facility] Comment: Interpretive Data Fasting glucose >/= [...] was last revised 2022. Testing performed by: [address] [address] Calcium 9.3 8.5 - 10.3 mg/dL [facility] Comment:Testing performed by : [address] [address] Bilirubin, total 0.2 0.1 - 1.2 mg/dL [facility] Comment:Testing performed by : [address] [address] Protein, pl 6.1(L) 6.5 - 8.5 g/dL [facility] Comment:Testing performed by : [address] [address] Albumin 3.4(L) 3.5 - 5.0 g/dL [facility] Comment:Testing performed by : [address] [address] Alk phos 122 40 - 130 Units/L [facility] Comment:Testing performed by : [address] [address] ALT 29 7 - 45 Units/L [facility] Comment:Testing performed by : [address] [address] AST 40 10 - 45 Units/L [facility] Comment:Testing performed by : [address] [address] Blood 03/07/2025 9:58 AM CDT 03/07/2025 12:36 PM CDT us Lynette Edwards CNM LAB BLOOD ORDERABLE S Final Result MICHELLE [address] [facility] Department [place] [address] * eGFR (03/05/2025 10:33 AM CDT) eGFR [...] of Race in Diagnosing Kidney Disease, JASN 202). The CKD-EPI equation should not be used for patients with unstable renal function and has not been validated in children and those over 70. Current interpretive data was last reviewed 2021. Testing performed by: [address] [address] Blood 03/05/2025 10:3 3 AM CDT 03/05/2025 10:42 AM CDT us Lynette Edwards CN LAB BLOOD ORDERABLE S Final Result [facility] [address] [facility] Department [place] [address] * (ABNORMAL) CBC without differential (03/05/2025 10:33 AM CDT) WBC 16.86(H) 3.80 - 9.90 K/cumm Comment:Testing performed by : [address] [address] Hgb 10.0(L) 11.9 - 15.5 g/dL MICHELLE Comment:Testing performed by : [address] [address] Hct 30.0(L) 35.6 - 45.5 % MICHELLE Comment:Testing performed by : [address] [address] Plt 242 150 - 400 K/cumm MICHELLE Comment:Testing performed by : [address] [address] MPV 9.3 9.1 - 12.3 fL MIC[facility]LE Comment:Testing performed by : [address] [address] RBC 3.34(L) 3.90 - 5.20 M/cumm MICHELLE Comment:Testing performed by : [address] [address] MCV 89.8 81.3 - 96.4 fL MIC[facility]LE Comment:Testing performed by : [address] [address] MCH 29.9 27.1 - 33.3 pg MIC[facility]LE Comment:Testing performed by : [address] [address] MCHC 33.3 32.3 - 35.7 g/dL MICHELLE Comment:Testing performed by : [address] [address] RDW CV 13.5 11.1 - 14.9 % [facility] Comment:Testing performed by : [address] [address] RDW SD 44.3 35.7 - 48.1 fL [facility] Comment:Testing performed by : [address] [address] NRBC abs 0.00 0.00 - 0.01 K/cumm [facility] Comment:Testing performed by : [address] [address] Blood 03/05/2025 10:3 3 AM CDT 03/05/2025 10:42 AM CDT us Lynette Edwards CN LAB BLOOD ORDERABLE S Final Result Performing Organization Address City/State/[facility] Co de Phone Number MICHELLE [address] [facility] Department [place] [address] * (ABNORMAL) Comprehensive metabolic panel (03/05/2025 10:33 AM CDT) Sodium 140 135 - 145 mmol/L Comment:Testing performed by : [address] [address] Potassium, pl 4.1 3.3 - 4.9 mmol/L [facility] Comment:Testing performed by : [address] [address] Chloride 107 97 - 110 mmol/L MICHELLE Comment:Testing performed by : [address] [address] CO2 21(L) 22 - 32 mmol/L [facility] Comment:Testing performed by : [address] [address] Anion gap 12 2 - 15 mmol/L [facility] Comment:Testing performed by : [address] [address] BUN 7 6 - 25 mg/dL [facility] Comment:Testing performed by : [address] [address] Creatinine 0.66 0.60 - 1.10 mg/dL [facility] Comment:Testing performed by : [address] [address] Glucose 76 70 - 199 mg/dL [facility] Comment: Interpretive Data Fasting glucose >/= 126 [...] was last revised 2022. Testing performed by: [address] [address] Calcium 9.1 8.5 - 10.3 mg/dL [facility] Comment:Testing performed by : [address] [address] Bilirubin, total <0.2 0.1 - 1.2 mg/dL [facility] Comment:Testing performed by : [address] [address] Protein, pl 6.1(L) 6.5 - 8.5 g/dL [facility] Comment:Testing performed by : [address] [address] Albumin 3.3(L) 3.5 - 5.0 g/dL [facility] Comment:Testing performed by : [address] [address] Alk phos 126 40 - 130 Units/L [facility] Comment:Testing performed by : [address] [address] ALT 17 7 - 45 Units/L [facility] Comment:Testing performed by : [address] [address] AST 37 10 - 45 Units/L MICHELLE Comment:Testing performed by : [address] [address] Blood 03/05/2025 10:3 3 AM CDT 03/05/2025 10:42 AM CDT us Lynette Edwards CNM LAB BLOOD ORDERABLE S Final Result Performing Organization Address [facility] Co de Phone Number [id number] [place] [address] * eGFR (03/04/2025 7:38 AM CDT) eGFR [...] was last reviewed 2021. Testing performed by: [facility], [address] [place] [address]., [address] Blood 03/04/2025 7:38 AM CDT 03/04/2025 7:43 AM CDT us Blanca Preston MD LAB BLOOD ORDERABLES Dorina l Result Performing Organization Address City/[facility]/ZIP Co de Phone Number [id number] [place] [address] * (ABNORMAL) CBC without differential (03/04/2025 7:38 AM CDT) WBC 21.06(H) 3.80 - 9.90 K/cumm Comment:Testing performed by : [address], [address] Hgb 10.2(L) 11.9 - 15.5 g/dL MICHELLE Comment:Testing performed by : [address] [address] Hct 30.9(L) 35.6 - 45.5 % MICHELLE Comment:Testing performed by : [address] [address] Plt 209 150 - 400 K/cumm MICHELLE Comment:Testing performed by : [address], [address] MPV 9.7 9.1 - 12.3 fL [facility]LE Comment:Testing performed by : [address], [address] RBC 3.51(L) 3.90 - 5.20 M/cumm MICHELLE Comment:Testing performed by : [address], [address] MCV 88.0 81.3 - 96.4 fL [facility]LE Comment:Testing performed by : [address], [address] MCH 29.1 27.1 - 33.3 pg MIC[facility]LE Comment:Testing performed by : [address] [address] MCHC 33.0 32.3 - 35.7 g/dL [facility]HELLE Comment:Testing performed by : [address], [address] RDW CV 13.4 11.1 - 14.9 % MICHELLE Comment:Testing performed by : [address], [address] RDW SD 42.5 35.7 - 48.1 fL [facility] Comment:Testing performed by : [address] [address] NRBC abs 0.00 0.00 - 0.01 K/cumm MICHELLE Comment:Testing performed by : [address] [address] Blood 03/04/2025 7:38 AM CDT 03/04/2025 7:43 AM CDT Nallely Concepción ISAAC LAB BLOOD ORDERABLES Final Re sult [facility] [address] [facility] Department [place] [address] * (ABNORMAL) Comprehensive metabolic panel (03/04/2025 7:38 AM CDT) Sodium 138 135 - 145 mmol/L Comment:Testing performed by : [address] [address] Potassium, pl 4.4 3.3 - 4.9 mmol/L MICHELLE Comment:Testing performed by : [address] [address] Chloride 107 97 - 110 mmol/L [facility] Comment:Testing performed by : [address] [address] CO2 20(L) 22 - 32 mmol/L [facility] Comment:Testing performed by : [address] [address] Anion gap 11 2 - 15 mmol/L [facility] Comment:Testing performed by : [address] [address] BUN 9 6 - 25 mg/dL [facility] Comment:Testing performed by : [address] [address] Creatinine 0.84 0.60 - 1.10 mg/dL [facility] Comment:Testing performed by : [address] [address] Glucose 76 70 - 199 mg/dL MICHELLE [...] was last revised 2022. Testing performed by: [address] [address] Calcium 9.1 8.5 - 10.3 mg/dL [facility] Comment:Testing performed by : [address] [address] Bilirubin, total <0.2 0.1 - 1.2 mg/dL [facility] Comment:Testing performed by : [address] [address] Protein, pl 5.8(L) 6.5 - 8.5 g/dL [facility] Comment:Testing performed by : [address] [address] Albumin 3.2(L) 3.5 - 5.0 g/dL [facility] Comment:Testing performed by : [address] [address] Alk phos 138(H) 40 - 130 Units/L [facility] Comment:Testing performed by : [address] [address] ALT 15 7 - 45 Units/L [facility] Comment:Testing performed by : [address] [address] AST 47(H) 10 - 45 Units/L [facility] Comment:Testing performed by : [address], [address] Blood 03/04/2025 7:38 AM CDT 03/04/2025 7:43 AM CDT us Blanca Preston MD LAB BLOOD ORDERABLES Dorina lima Result [facility]DEZ [address] [facility] Department of Laboratories [place], [place] [id number] * IN AN PROCEDURE PLACEHOLDER (03/03/2025 4:28 AM CDT) Narrative Malika Joshua CRNA - 03/03/2025 4:28 AM CDT Malika Joshua CRNA 03/03/2025 4:29 AM CSE Block Patient location during procedure: L&D Reason for block: labor analgesia Staffing: Supervising provider: Castillo Schuler DO Placed by: CHUCK: Malika Joshua CRNA Preprocedure Prep: Preprocedure checklist: [...] was last reviewed 2021. Testing performed by: [address] [address] Blood 03/02/2025 9:26 PM CDT 03/02/2025 9:53 PM CDT Grady Willis MD LAB BLOOD ORDERABLES Final Result [facility] [address] [facility] Department [place] [address] * (ABNORMAL) Differential, auto (03/02/2025 9:26 PM CDT) Neutrophil abs 11.64(H) 1.50 - 6.50 K/cumm Comment:Testing performed by : [address] [address] Imm gran abs 0.28(H) 0.00 - 0.10 K/cumm MICHELLE Comment:Testing performed by : [address] [address] Lymphocyte abs 3.07 0.80 - 3.30 K/cumm MICHELLE Comment:Testing performed by : [address] [address] Monocyte abs 0.96(H) 0.20 - 0.80 K/cumm MICHELLE Comment:Testing performed by : [address] [address] Eosinophil abs 0.08 0.00 - 0.50 K/cumm MICHELLE Comment:Testing performed by : [address] [address] Basophil abs 0.06 0.00 - 0.10 K/cumm MICHELLE Comment:Testing performed by : [address] [address] Neutrophil pct 72.3 % MICHELLE Comment: Interpretive Data Percent cell count reference ranges are not reported, since discordance with absolute values may lead to misinterpretation of CBC data. Current Interpretive Data was last revised on 2017. Testing performed by: [address] [address] Imm gran pct 1.7 % [facility] Comment: Interpretive Data Percent cell count reference ranges are not reported, since discordance with absolute values may lead to misinterpretation of CBC data. Current Interpretive Data was last revised on 2017. Testing performed by: [address] [address] Lymphocyte pct 19.1 % [facility] Comment: Interpretive Data Percent cell count reference ranges are not reported, since discordance with absolute values may lead to misinterpretation of CBC data. Current Interpretive Data was last revised on 2017. Testing performed by: [address] [address] Monocyte pct 6.0 % [facility] Comment: Interpretive Data Percent cell count reference ranges are not reported, since discordance with absolute values may lead to misinterpretation of CBC data. Current Interpretive Data was last revised on 2017. Testing performed by: [address] [address] Eosinophil pct 0.5 % [facility] Comment: Interpretive Data Percent cell count reference ranges are not reported, since discordance with absolute values may lead to misinterpretation of CBC data. Current Interpretive Data was last revised on 2017. Testing performed by: [address] [address] Basophil pct 0.4 % [facility] Comment: Interpretive Data Percent cell count reference ranges are not reported, since discordance with absolute values may lead to misinterpretation of CBC data. Current Interpretive Data was last revised on 2017. Testing performed by: [address] [address] Blood 03/02/2025 9:26 PM CDT 03/02/2025 9:53 PM CDT us Grady Willis MD LAB BLOOD ORDERABLES Final Result MICHELLE [address] [facility] [place] [address] * (ABNORMAL) CBC with auto differential (03/02/2025 9:26 PM CDT) WBC 16.09(H) 3.80 - 9.90 K/cumm Comment:Testing performed by : [address] [address] Hgb 10.8(L) 11.9 - 15.5 g/dL MICHELLE Comment:Testing performed by : [address], [address] Hct 31.7(L) 35.6 - 45.5 % MICHELLE Comment:Testing performed by : [address], [address] Plt 266 150 - 400 K/cumm MICHELLE Comment:Testing performed by : [address], [address] MPV 10.1 9.1 - 12.3 fL MICHELLE Comment:Testing performed by : [address], [address] RBC 3.62(L) 3.90 - 5.20 M/cumm MICHELLE Comment:Testing performed by : [address], [address] MCV 87.6 81.3 - 96.4 fL MICHELLE Comment:Testing performed by : [address], [address] MCH 29.8 27.1 - 33.3 pg MICHELLE Comment:Testing performed by : [address], [address] MCHC 34.1 32.3 - 35.7 g/dL MICHELLE Comment:Testing performed by : [address], [address] RDW CV 13.2 11.1 - 14.9 % MICHELLE Comment:Testing performed by : [address], [address] RDW SD 41.5 35.7 - 48.1 fL MICHELLE Comment:Testing performed by : [address], [address] NRBC abs 0.00 0.00 - 0.01 K/cumm MICHELLE Comment:Testing performed by : [facility], [address] [place] [address]., [address] Blood 03/02/2025 9:26 PM CDT 03/02/2025 9:53 PM CDT Grady Willis MD LAB BLOOD ORDERABLES Final Result Performing Organization Address [facility]/ZIP Co de Phone Number [address] [place] [address] * ABO/Rh (03/02/2025 9:26 PM CDT) ABO/Rh O Positive Comment:Testing performed by : [facility], [address] [place] [address]., [address] Blood 03/02/2025 9:26 PM CDT 03/02/2025 9:53 PM CDT Narrative MICHELLE - 03/02/2025 10:28 PM CDT Has the patient had Daratumumab or Isatuximab in the past 6 months?->Unknown Grady Willis MD LAB BLOOD BANK TEST ORDERA BLES Final Result Performing Organization Address [facility] Co de Phone Number [address] [place] [address] * RPR Blood (03/02/2025 9:26 PM CDT) RPR Nonreactive Nonreactive Comment:Testing performed by : [facility], [address] [facility], [place]., [address] Blood 03/02/2025 9:26 PM CDT 03/03/2025 2:02 AM CDT Grady Willis MD LAB MICROBIOLOGY - GENERAL ORDERABLES Final Result [address] [employer] [place] [address] * Antibody screen (03/02/2025 9:26 PM CDT) Pathologist [facility] Honorio, indirect, Gel Interpretation Negative ABSC Comment:Testing performed by : [address] [address] Blood 03/02/2025 9:26 PM CDT 03/02/2025 9:53 PM CDT Narrative MICHELLE - 03/02/2025 10:28 PM CDT Has the patient had Daratumumab or Isatuximab in the past 6 months?->Unknown Grady Willis MD LAB BLOOD BANK TEST ORDERA BLES Final Result MICHELLE [address] [facility] Department [place] [address] * (ABNORMAL) Comprehensive metabolic panel (03/02/2025 9:26 PM CDT) Pathologist [facility] [place] Sodium 137 135 - 145 mmol/L Comment:Testing performed by : [address] [address] Potassium, pl 4.2 3.3 - 4.9 mmol/L MICHELLE Comment: Hemolyzed; Potassium value may be falsely elevated by as much as 1.0 mmol/L. Suggest redraw and reanalysis. Testing performed by: [address] [address] Chloride 104 97 - 110 mmol/L MICHELLE Comment:Testing performed by : [address] [address] CO2 19(L) 22 - 32 mmol/L MICHELLE Comment:Testing performed by : [address] [address] Anion gap 14 2 - 15 mmol/L MICHELLE Comment:Testing performed by : [address] [address] BUN 10 6 - 25 mg/dL MICHELLE Comment:Testing performed by : [address] [address] Creatinine 0.79 0.60 - 1.10 mg/dL MICHELLE Comment:Testing performed by : [address] [address] Glucose 119 70 - 199 mg/dL MICHELLE [...] was last revised 2022. Testing performed by: [address] [address] Calcium 9.7 8.5 - 10.3 mg/dL MICHELLE Comment:Testing performed by : [address] [address] Bilirubin, total <0.2 0.1 - 1.2 mg/dL MICHELLE Comment:Testing performed by : [address] [address] Protein, pl 6.1(L) 6.5 - 8.5 g/dL MICHELLE Comment:Testing performed by : [address] [address] Albumin 3.5 3.5 - 5.0 g/dL MICHLELE Comment:Testing performed by : [address] [address] Alk phos 167(H) 40 - 130 Units/L MICHELLE Comment:Testing performed by : [address] [address] ALT 10 7 - 45 Units/L MICHELLE Comment:Testing performed by : [address] [address] AST 20 10 - 45 Units/L MICHELLE Comment: Hemolyzed; result may be falsely elevated Testing performed by: [address] [address] Blood 03/02/2025 9:26 PM CDT 03/02/2025 9:53 PM CDT Grady Willis MD LAB BLOOD ORDERABLES Final Result Performing Organization Address [facility] Co de Phone Number [id number] [employer] [place] [address] * ABO/Rh (02/25/2025 6:48 PM CDT) ABO/Rh O Positive Comment:Testing performed by : [facility], [address] [place] [address]., [address] Blood 02/25/2025 6:48 PM CDT 02/25/2025 6:53 PM CDT Narrative MICHELLE - 02/25/2025 7:35 PM CDT Has the patient had Daratumumab or Isatuximab in the past 6 months?->Unknown Nallely Beebe CNM LAB BLOOD BANK TEST ORDERABLE S Final Result Performing Organization Address [facility] Co de Phone Number [address] [employer]) [place] [address] * RPR Blood (02/25/2025 6:48 PM CDT) RPR Nonreactive Nonreactive Comment:Testing performed by : [facility], [address] [facility] [place]., [address] Blood 02/25/2025 6:48 PM CDT 02/25/2025 9:57 PM CDT Nallely Beebe CNM LAB MICROBIOLOGY - GENERAL OR DERABLES Final Result Performing Organization Address [facility] Co de Phone Number [address] [employer]) [place] [address] * Antibody screen (02/25/2025 6:48 PM CDT) Honorio, indirect, Gel Interpretation Negative ABSC Comment:Testing performed by : [facility], [address] [place] [address]., [address] Blood 02/25/2025 6:48 PM CDT 02/25/2025 6:53 PM CDT Narrative MICHELLE Cazares 02/25/2025 7:35 PM CDT Has the patient had Daratumumab or Isatuximab in the past 6 months?->Unknown Nallely Beebe CNM LAB BLOOD BANK TEST ORDERABLE S Final Result Performing Organization Address City/[facility] Co de Phone Number MICHELLE [address] [place] [address] * eGFR (02/25/2025 4:12 PM CDT) eGFR [...] was last reviewed 2021. Testing performed by: [facility], [address] [place] [address]., [address] Blood 02/25/2025 4:12 PM CDT 02/25/2025 4:17 PM CDT us Jade Vela MD LAB BLOOD ORDERABLES Final Resul t MICHELLE [address] Department [place] [address] * (ABNORMAL) Differential, auto (02/25/2025 4:12 PM CDT) Neutrophil abs 14.88(H) 1.50 - 6.50 K/cumm Comment:Testing performed by : [address] [address] Imm gran abs 0.42(H) 0.00 - 0.10 K/cumm MICHELLE Comment:Testing performed by : [address] [address] Lymphocyte abs 2.59 0.80 - 3.30 K/cumm MICHELLE Comment:Testing performed by : [address] [address] Monocyte abs 0.83(H) 0.20 - 0.80 K/cumm MICHELLE Comment:Testing performed by : [address] [address] Eosinophil abs 0.04 0.00 - 0.50 K/cumm MICHELLE Comment:Testing performed by : [address] [address] Basophil abs 0.07 0.00 - 0.10 K/cumm MICHELLE Comment:Testing performed by : [address] [address] Neutrophil pct 79.0 % MICHELLE Comment: Interpretive Data Percent cell count reference ranges are not reported, since discordance with absolute values may lead to misinterpretation of CBC data. Current Interpretive Data was last revised on 2017. Testing performed by: [address] [address] Imm gran pct 2.2 % MICHELLE Comment: Interpretive Data Percent cell count reference ranges are not reported, since discordance with absolute values may lead to misinterpretation of CBC data. Current Interpretive Data was last revised on 2017. Testing performed by: [address] [address] Lymphocyte pct 13.8 % MICHELLE Comment: Interpretive Data Percent cell count reference ranges are not reported, since discordance with absolute values may lead to misinterpretation of CBC data. Current Interpretive Data was last revised on 2017. Testing performed by: [address] [address] Monocyte pct 4.4 % MICHELLE Comment: Interpretive Data Percent cell count reference ranges are not reported, since discordance with absolute values may lead to misinterpretation of CBC data. Current Interpretive Data was last revised on 2017. Testing performed by: [address] [address] Eosinophil pct 0.2 % MICHELLE Comment: Interpretive Data Percent cell count reference ranges are not reported, since discordance with absolute values may lead to misinterpretation of CBC data. Current Interpretive Data was last revised on 2017. Testing performed by: [address] [address] Basophil pct 0.4 % MICHELLE Comment: Interpretive Data Percent cell count reference ranges are not reported, since discordance with absolute values may lead to misinterpretation of CBC data. Current Interpretive Data was last revised on 2017. Testing performed by: [address] [address] Blood 02/25/2025 4:12 PM CDT 02/25/2025 4:17 PM CDT us Jade Vela MD LAB BLOOD ORDERABLES Final [facility]ul t [facility] [address] [facility] Department [place] [address] * (ABNORMAL) CBC with auto differential (02/25/2025 4:12 PM CDT) WBC 18.83(H) 3.80 - 9.90 K/cumm Comment:Testing performed by : [address] [address] Hgb 11.2(L) 11.9 - 15.5 g/dL MICHELLE Comment:Testing performed by : [address] [address] Hct 33.4(L) 35.6 - 45.5 % MICHELLE Comment:Testing performed by : [address] [address] Plt 268 150 - 400 K/cumm MICHELLE Comment:Testing performed by : [address] [address] MPV 9.9 9.1 - 12.3 fL MICHELLE Comment:Testing performed by : [address] [address] RBC 3.82(L) 3.90 - 5.20 M/cumm MICHELLE Comment:Testing performed by : [address], [address] MCV 87.4 81.3 - 96.4 fL MICHELLE Comment:Testing performed by : [address] [address] MCH 29.3 27.1 - 33.3 pg MICHELLE Comment:Testing performed by : [address], [address] MCHC 33.5 32.3 - 35.7 g/dL MICHELLE Comment:Testing performed by : [address], [address] RDW CV 13.0 11.1 - 14.9 % MICHELLE Comment:Testing performed by : [address] [address] RDW SD 40.7 35.7 - 48.1 fL MICHELLE Comment:Testing performed by : [address] [address] NRBC abs 0.00 0.00 - 0.01 K/cumm MICHELLE Comment:Testing performed by : [address] [address] Blood 02/25/2025 4:12 PM CDT 02/25/2025 4:17 PM CDT us Jade Vela MD LAB BLOOD ORDERABLES Final Resul t MICHELLE [address] [facility] Department [place] [address] * (ABNORMAL) Protein / creatinine ratio, urine, random (02/25/2025 4:12 PM CDT) [facility] Protein, ur, quant 40.0 mg/dL Comment: Interpretive Data No reference range established. Current interpretive data was last revised 2019. Testing performed by: [address] [address] Creatinine Ur 117.0 mg/dL MICHELLE Comment: Interpretive Data No reference range established. Current interpretive data was last revised 2019. Testing performed by: [address] [address] Protein/creatinin e ratio 341.9(H) 0.0 - 180.0 mg/g CR MICHELLE VALDEZ Comment:Testing performed by : [address] [address] Urine 02/25/2025 4:12 PM CDT 02/25/2025 4:17 PM CDT us Jade Vela MD LAB URINE ORDERABLES Final Resul t MICHELLE [address] [facility] Department [place] [address] * (ABNORMAL) Comprehensive metabolic panel (02/25/2025 4:12 PM CDT) [facility] Sodium 137 135 - 145 mmol/L Comment:Testing performed by : [address] [address] Potassium, pl 4.0 3.3 - 4.9 mmol/L MICHELLE Comment:Testing performed by : [address] [address] Chloride 105 97 - 110 mmol/L MICHELLE VALDEZ Comment:Testing performed by : [address] [address] CO2 19(L) 22 - 32 mmol/L MICHELLE VALDEZ Comment:Testing performed by : [address] [address] Anion gap 13 2 - 15 mmol/L MICHELLE Comment:Testing performed by : [address] [address] BUN 11 6 - 25 mg/dL MICHELLE Comment:Testing performed by : [address] [address] Creatinine 0.78 0.60 - 1.10 mg/dL MCIHELLE Comment:Testing performed by : [address] [address] Glucose 102 70 - 199 mg/dL [facility] Comment: Interpretive Data Fasting glucose >/= [...] was last revised 2022. Testing performed by: [address] [address] Calcium 9.5 8.5 - 10.3 mg/dL [facility] Comment:Testing performed by : [address] [address] Bilirubin, total 0.2 0.1 - 1.2 mg/dL [facility] Comment:Testing performed by : [address] [address] Protein, pl 6.5 6.5 - 8.5 g/dL [facility] Comment:Testing performed by : [address] [address] Albumin 3.6 3.5 - 5.0 g/dL [facility] Comment:Testing performed by : [address] [address] Alk phos 164(H) 40 - 130 Units/L MICHELLE Comment:Testing performed by : [address] [address] ALT 11 7 - 45 Units/L MICHELLE Comment:Testing performed by : [facility], [address] [place] [address]., [address] AST 23 10 - 45 Units/L MICHELLE Comment:Testing performed by : [address] [address] Blood 02/25/2025 4:12 PM CDT 02/25/2025 4:17 PM CDT us Jade Vela MD LAB BLOOD ORDERABLES Final Resul t Performing Organization Address City/[facility]/ZIP Co de Phone Number [facility] [address] [facility] Department [place] [address] * eGFR (02/24/2025 11:28 AM CDT) eGFR [...] was last reviewed 2021. Testing performed by: [facility], [address] [place] [address]., [address] Blood 02/24/2025 11:2 8 AM CDT 02/24/2025 12:41 PM CDT us Lynette Edwards CNM LAB BLOOD ORDERABLE S Final Result Performing Organization Address City/[facility]/ZIP Co de Phone Number [facility] [address] [facility] Department [place] [address] * (ABNORMAL) Protein / creatinine ratio, urine, random (02/24/2025 11:28 AM CDT) [facility] Protein, ur, quant 48.0 mg/dL Comment: Interpretive Data No reference range established. Current interpretive data was last revised 2019. Testing performed by: [address] [address] Creatinine Ur 146.2 mg/dL MICHELLE Comment: Interpretive Data No reference range established. Current interpretive data was last revised 2019. Testing performed by: [address] [address] Protein/creatinin e ratio 328.3(H) 0.0 - 180.0 mg/g CR MICHELLE Comment:Testing performed by : [address] [address] Urine 02/24/2025 11:2 8 AM CDT 02/24/2025 12:41 PM CDT us Lynette ISAAC LAB URINE ORDERABLE S Final Result [facility] [address] [facility] Department [place] [address] * (ABNORMAL) CBC without differential (02/24/2025 11:28 AM CDT) [facility] WBC 15.73(H) 3.80 - 9.90 K/cumm Comment:Testing performed by : [address] [address] Hgb 11.7(L) 11.9 - 15.5 g/dL MICHELLE Comment:Testing performed by : [address] [address] Hct 35.1(L) 35.6 - 45.5 % MICHELLE Comment:Testing performed by : [address] [address] Plt 285 150 - 400 K/cumm MICHELLE VALDEZ Comment:Testing performed by : [address] [address] MPV 10.1 9.1 - 12.3 fL MICHELLE VALDEZ Comment:Testing performed by : [address] [address] RBC 3.91 3.90 - 5.20 M/cumm MICHELLE VALDEZ Comment:Testing performed by : [address] [address] MCV 89.8 81.3 - 96.4 fL MICHELLE VALDEZ Comment:Testing performed by : [address] [address] MCH 29.9 27.1 - 33.3 pg MICHELLE VALDEZ Comment:Testing performed by : [address] [address] MCHC 33.3 32.3 - 35.7 g/dL MICHELLE VALDEZ Comment:Testing performed by : [address] [address] RDW CV 13.0 11.1 - 14.9 % MICHELLE VALDEZ Comment:Testing performed by : [address] [address] RDW SD 42.2 35.7 - 48.1 fL MICHELLE VALDEZ Comment:Testing performed by : [address] [address] NRBC abs 0.02(H) 0.00 - 0.01 K/cumm MICHELLE VALDEZ Comment:Testing performed by : [address] [address] Blood 02/24/2025 11:2 8 AM CDT 02/24/2025 12:41 PM CDT us Lynette Edwards CNM LAB BLOOD ORDERABLE S Final Result MICHELLE VALDEZ [address] [facility] Department [place] [address] * Uric acid (02/24/2025 11:28 AM CDT) [facility] Uric acid 6.0 2.5 - 7.0 mg/dL Comment:Testing performed by : [address] [address] Blood 02/24/2025 11:2 8 AM CDT 02/24/2025 12:41 PM CDT us Lynette Edwards [facility] LAB BLOOD ORDERABLE S Final Result [facility] [address] [facility] Department [place] [address] * (ABNORMAL) Comprehensive metabolic panel (02/24/2025 11:28 AM CDT) [facility] Sodium 138 135 - 145 mmol/L Comment:Testing performed by : [address] [address] Potassium, pl 4.1 3.3 - 4.9 mmol/L MICHELLE Comment:Testing performed by : [address] [address] Chloride 105 97 - 110 mmol/L MICHELLE Comment:Testing performed by : [address] [address] CO2 20(L) 22 - 32 mmol/L MICHELLE Comment:Testing performed by : [address] [address] Anion gap 13 2 - 15 mmol/L MICHELLE Comment:Testing performed by : [address] [address] BUN 11 6 - 25 mg/dL MICHELLE Comment:Testing performed by : [address] [address] Creatinine 0.68 0.60 - 1.10 mg/dL MICHELLE Comment:Testing performed by : [address] [address] Glucose 88 70 - 199 mg/dL MICHELLE [...] was last revised 2022. Testing performed by: [address] [address] Calcium 9.6 8.5 - 10.3 mg/dL MICHELLE Comment:Testing performed by : [address] [address] Bilirubin, total 0.2 0.1 - 1.2 mg/dL MICHELLE Comment:Testing performed by : [address] [address] Protein, pl 6.5 6.5 - 8.5 g/dL MICHELLE Comment:Testing performed by : [address] [address] Albumin 3.6 3.5 - 5.0 g/dL MICHELLE Comment:Testing performed by : [address] [address] Alk phos 175(H) 40 - 130 Units/L MICHELLE Comment:Testing performed by : [address] [address] ALT 11 7 - 45 Units/L MICHELLE Comment:Testing performed by : [address] [address] AST 23 10 - 45 Units/L MICHELLE Comment:Testing performed by : [address] [address] Blood 02/24/2025 11:2 8 AM CDT 02/24/2025 12:41 PM CDT us Lynette Edwards CNM LAB BLOOD ORDERABLE S Final Result MICHELLE [address] [facility] Department [place] [address] * Group B streptococcus PCR Vaginal/Rectal (02/14/2025 1:37 PM CDT) Strep group B PCR Negative Negative Comment: Interpretive Data Testing performed by [facility]. This test is performed using the Globial Xpert GBS LB XC assay. This is a real-time PCR assay intended for the qualitative detection of nucleic acid from Streptococcus agalactiae (GBS). This assay has been cleared by the [place] Food and Drug administration. The performance characteristics have been verified by the [facility]. Penicillin is the drug of choice for Beta strep infections. A negative result does not rule out the possibility of GBS colonization. False negative results may occur if the organism is present at levels below the analytical limit of detection. Current interpretive data was last reviewed 2023 Testing performed by: [facility], [address] [place] [address]., [address] Vaginal/Rectal 02/14/2025 1: 37 PM CDT 02/14/2025 7:10 PM CDT Narrative MICHELLE - 02/15/2025 4:03 PM CDT Culture Type:->Vaginal/Anal Drag Is patient allergic to penicillin?->No us Nallely ISAAC LAB MICROBIOLOGY - GENERAL OR DERABLES Final Result MICHELLE [address] [facility] Department [place] [address] * US Ob Follow Up (02/14/2025 12:57 [...] index is normal at 17.6. us Nallely Beebe CNM IMG OB US PROCEDURES Final Re sult [...] of Race in Diagnosing Kidney Disease, JASN 202). The CKD-EPI equation should not be used for patients with unstable renal function and has not been validated in children and those over 70. Current interpretive data was last reviewed 2021. Testing performed by: [facility], [address] [place] [address]., [address] Blood 01/31/2025 2:05 PM CDT 01/31/2025 3:54 PM CDT us Nallely Beebe CNM LAB BLOOD ORDERABLES Final Re sult MICHELLE [address] [facility] Department [place] [address] * (ABNORMAL) CBC without differential (01/31/2025 2:05 PM CDT) [facility] WBC 14.92(H) 3.80 - 9.90 K/cumm Comment:Testing performed by : [address], [address] Hgb 11.1(L) 11.9 - 15.5 g/dL MICHELLE Comment:Testing performed by : [address], [address] Hct 33.2(L) 35.6 - 45.5 % MICHELLE Comment:Testing performed by : [address], [address] Plt 251 150 - 400 K/cumm MICHELLE Comment:Testing performed by : [address], [address] MPV 9.8 9.1 - 12.3 fL MICHELLE Comment:Testing performed by : [address], [address] RBC 3.69(L) 3.90 - 5.20 M/cumm MICHELLE Comment:Testing performed by : [address], [address] MCV 90.0 81.3 - 96.4 fL MICHELLE Comment:Testing performed by : [address], [address] MCH 30.1 27.1 - 33.3 pg MICHELLE Comment:Testing performed by : [address], [address] MCHC 33.4 32.3 - 35.7 g/dL MICHELLE Comment:Testing performed by : [address], [address] RDW CV 12.1 11.1 - 14.9 % MICHELLE Comment:Testing performed by : [address], [address] RDW SD 39.8 35.7 - 48.1 fL MICHELLE Comment:Testing performed by : [address], [address] NRBC abs 0.00 0.00 - 0.01 K/cumm MICHELLE Comment:Testing performed by : [address] [address] Blood 01/31/2025 2:05 PM CDT 01/31/2025 3:55 PM CDT Nallely ISAAC LAB BLOOD ORDERABLES Final Re sult [facility] [address] [facility] Department [place] [address] * (ABNORMAL) Comprehensive metabolic panel (01/31/2025 2:05 PM CDT) Sodium 140 135 - 145 mmol/L Comment:Testing performed by : [address] [address] Potassium, pl 4.2 3.3 - 4.9 mmol/L MICHELLE Comment:Testing performed by : [address] [address] Chloride 106 97 - 110 mmol/L MICHELLE Comment:Testing performed by : [address] [address] CO2 21(L) 22 - 32 mmol/L MICHELLE Comment:Testing performed by : [address] [address] Anion gap 13 2 - 15 mmol/L MICHELLE Comment:Testing performed by : [address] [address] BUN 5(L) 6 - 25 mg/dL MICHELLE Comment:Testing performed by : [address] [address] Creatinine 0.60 0.60 - 1.10 mg/dL MICHELLE Comment:Testing performed by : [address] [address] Glucose 121 70 - 199 mg/dL MICHELLE [...] was last revised 2022. Testing performed by: [address] [address] Calcium 8.9 8.5 - 10.3 mg/dL MICHELLE Comment:Testing performed by : [address] [address] Bilirubin, total <0.2 0.1 - 1.2 mg/dL MICHELLE Comment:Testing performed by : [address] [address] Protein, pl 6.1(L) 6.5 - 8.5 g/dL MICHELLE Comment:Testing performed by : [address] [address] Albumin 3.6 3.5 - 5.0 g/dL MICHELLE Comment:Testing performed by : [address] [address] Alk phos 132(H) 40 - 130 Units/L MICHELLE Comment:Testing performed by : [address] [address] ALT 14 7 - 45 Units/L MICHELLE Comment:Testing performed by : [address] [address] AST 20 10 - 45 Units/L MICHELLE Comment:Testing performed by : [address] [address] Blood 01/31/2025 2:05 PM CDT 01/31/2025 3:54 PM CDT us Nallely Beebe CNM LAB BLOOD ORDERABLES Final Re sult MICHELLE [address] [facility] Department [place] [address] * Protein / creatinine ratio, urine, random (01/31/2025 2:00 PM CDT) Protein, ur, quant 5.0 mg/dL Comment: Interpretive Data No reference range established. Current interpretive data was last revised 2019. Testing performed by: [facility] [facility], [address] [place] [address]., [address] Creatinine Ur 29.4 mg/dL MICHELLE Comment: Interpretive Data No reference range established. Current interpretive data was last revised 2019. Testing performed by: [address] [address] Protein/creatinin e ratio 170.1 0.0 - 180.0 mg/g CR MICHELLE Comment:Testing performed by : [address] [address] Urine 01/31/2025 2:00 PM CDT 01/31/2025 3:53 PM CDT Nallely Beebe [facility] LAB URINE ORDERABLES Final Re sult [facility] [address] [facility] Department [place] [address] * N. gonorrhoeae/C. trachomatis Amplification Endocervical (01/07/2025 11:11 AM CDT) Pathologist [facility] [place] C. trachomatis Not Detected Not Detected Comment:Testing performed by : [address] [address] N. gonorrhoeae Not Detected Not Detected MICHELLE VALDEZ Comment: Interpretive Data This assay detects Chlamydia trachomatis and Neisseria gonorrhoeae by nucleic acid amplification testing (NAAT). This assay has been cleared by the [place] Food and Drug administration. The performance characteristics of this test have been verified by the [facility]. The performance characteristics of this test have not been evaluated in individuals less than 14 years of age. Current Interpretive Data last revised 2023. Testing performed by: [address] [address] Endocervical (None) 01/08/20 11:11 AM CDT 01/07/2025 11:16 AM CDT us Alfie Browne MD LAB MICROBIOLOGY - GENERAL ORDERABLES Final Result MICHELLE [address] [facility] Department [place] [address] * Vaginitis panel Vaginal (01/07/2025 11:11 AM CDT) Bacterial Vaginosis Not Detected Not Detected Comment: A negative result does not preclude a possible infection. Results should be considered in conjunction with clinical presentation to determine the disease status. Testing performed by: [address] [address] Fatoumata group Not Detected Not Detected MICHELLE Comment:Testing performed by : [address] [address] Fatoumata glabrata/ krusei Not Detected Not Detected MICHELLE Comment:Testing performed by : [address], [place]., [address] Trichomonas DNA Not Detected Not Detected MICHELLE Comment:Testing performed by : [address] [address] Vaginal 01/07/2025 11:1 1 AM CDT 01/07/2025 11:16 AM CDT Narrative MICHELLE - 01/07/2025 12:24 PM CDT The Cepheid Xpert Xpress MVP test detects DNA targets [...] this test have been verified by the [facility]. The Cepheid Xpert Xpress MVP test detects DNA targets [...] this test have been verified by the [facility]. Alfie Browne MD LAB MICROBIOLOGY - GENERAL ORDERABLES Final Result Performing Organization Address [facility]/ZIP Co de Phone Number MICHELLE [address] [facility] Department [place] [address] * eGFR (01/07/2025 10:55 AM CDT) [facility] eGFR >90 >=60 mL/min/1. 73 m2 Comment: [...] was last reviewed 2021. Testing performed by: [facility], [address] [place] [address]., [address] Blood 01/07/2025 10:5 5 AM CDT 01/07/2025 11:02 AM CDT Alfie Browne MD LAB BLOOD ORDERABLES Final Result Performing Organization Address City/[facility]/ZIP Co de Phone Number MICHELLE [address] [facility] Department [place] [address] * (ABNORMAL) Differential, auto (01/07/2025 10:55 AM CDT) Neutrophil abs 14.71(H) 1.50 - 6.50 K/cumm Comment:Testing performed by : [address] [address] Imm gran abs 0.47(H) 0.00 - 0.10 K/cumm MICHELLE Comment:Testing performed by : [address] [address] Lymphocyte abs 1.97 0.80 - 3.30 K/cumm MICHELLE Comment:Testing performed by : [address] [address] Monocyte abs 0.63 0.20 - 0.80 K/cumm MICHELLE Comment:Testing performed by : [address] [address] Eosinophil abs 0.07 0.00 - 0.50 K/cumm MICHELLE Comment:Testing performed by : [address] [address] Basophil abs 0.07 0.00 - 0.10 K/cumm MICHELLE Comment:Testing performed by : [address] [address] Neutrophil pct 82.1 % MICHELLE Comment: Interpretive Data Percent cell count reference ranges are not reported, since discordance with absolute values may lead to misinterpretation of CBC data. Current Interpretive Data was last revised on 2017. Testing performed by: [address] [address] Imm gran pct 2.6 % MICHELLE Comment: Interpretive Data Percent cell count reference ranges are not reported, since discordance with absolute values may lead to misinterpretation of CBC data. Current Interpretive Data was last revised on 2017. Testing performed by: [address] [address] Lymphocyte pct 11.0 % MICHELLE Comment: Interpretive Data Percent cell count reference ranges are not reported, since discordance with absolute values may lead to misinterpretation of CBC data. Current Interpretive Data was last revised on 2017. Testing performed by: [address] [address] Monocyte pct 3.5 % MICHELLE Comment: Interpretive Data Percent cell count reference ranges are not reported, since discordance with absolute values may lead to misinterpretation of CBC data. Current Interpretive Data was last revised on 2017. Testing performed by: [address] [address] Eosinophil pct 0.4 % MICHELLE Comment: Interpretive Data Percent cell count reference ranges are not reported, since discordance with absolute values may lead to misinterpretation of CBC data. Current Interpretive Data was last revised on 2017. Testing performed by: [address] [address] Basophil pct 0.4 % MICHELLE Comment: Interpretive Data Percent cell count reference ranges are not reported, since discordance with absolute values may lead to misinterpretation of CBC data. Current Interpretive Data was last revised on 2017. Testing performed by: [address] [address] Blood 01/07/2025 10:5 5 AM CDT 01/07/2025 11:02 AM CDT us Alfie Browne MD LAB BLOOD ORDERABLES Final Result [facility] [address] [facility] Department of Laboratories [place], [place] [id number] * (ABNORMAL) Urinalysis reflex to microscopic and culture Urine (01/07/2025 10:55 AM CDT) Color, ur Yellow Yellow Comment:Testing performed by : [address] [address] Clarity, ur Clear Clear MICHELLE Comment:Testing performed by : [address] [address] Specific gravity, ur 1.019 1.003 - 1.030 MICHELLE Comment:Testing performed by : [facility], [address] [place] [address], [place]., [address] pH, urine 7.0 MICHELLE Comment: Interpretive Data U rine pH is affected by diet, medications, systemic acid-base disturbances, and renal tubular function. pH may affect urinary stone formation. For example, urine pH below 6.0 may help reduce the tendency for calcium phosphate stones and pH greater than 6.0 may reduce the tendency for uric acid stone formation. Source: [facility] [employer]) Current Interpretive Data was last revised on 2017 Testing performed by: [facility], [address] [place] [address], [place]., [address] Protein, ur ql Negative Negative MICHELLE Comment:Testing performed by : [address], [place]., [address] Glucose, ur ql Negative Negative MICHELLE Comment:Testing performed by : [address], [place]., [address] Ketones, ur Trace(A) Negative MICHELLE Comment:Testing performed by : [address], [place]., [address] Bilirubin, ur Negative Negative MICHELLE Comment:Testing performed by : [address], [place]., [address] Blood, ur Negative Negative MICHELLE Comment:Testing performed by : [address], [place]., [address] Urobilinogen, ur <2.0 <2.0 mg/dL MICHELLE Comment:Testing performed by : [address], [place]., [address] Nitrite, ur Negative Negative MICHELLE Comment:Testing performed by : [address], [place]., [address] Leukocyte esterase, ur Negative Negative MICHELLE Comment:Testing performed by : [address], [place]., [address] UA reflex comment Reflex conditions for microscopic UA and culture not met. MICHELLE Comment:Testing performed by : [address], [place]., [address] Urine 01/07/2025 10:5 5 AM CDT 01/07/2025 11:02 AM CDT us Alfie Browne MD LAB MICROBIOLOGY - GENERAL ORDERABLES Final Result MICHELLE [address] [facility] Department [place] [address] * (ABNORMAL) CBC with auto differential (01/07/2025 10:55 AM CDT) WBC 17.92(H) 3.80 - 9.90 K/cumm Comment:Testing performed by : [address] [address] Hgb 11.5(L) 11.9 - 15.5 g/dL MICHELLE Comment:Testing performed by : [address] [address] Hct 33.7(L) 35.6 - 45.5 % MICHELLE Comment:Testing performed by : [address] [address] Plt 258 150 - 400 K/cumm MICHELLE Comment:Testing performed by : [address] [address] MPV 9.2 9.1 - 12.3 fL MICHELLE Comment:Testing performed by : [address] [address] RBC 3.69(L) 3.90 - 5.20 M/cumm MICHELLE Comment:Testing performed by : [address] [address] MCV 91.3 81.3 - 96.4 fL MICHELLE Comment:Testing performed by : [address] [address] MCH 31.2 27.1 - 33.3 pg MICHELLE VALDEZ Comment:Testing performed by : [address] [address] MCHC 34.1 32.3 - 35.7 g/dL MICHELLE Comment:Testing performed by : [address], [address] RDW CV 12.1 11.1 - 14.9 % MICHELLE Comment:Testing performed by : [address] [address] RDW SD 40.0 35.7 - 48.1 fL MICHELLE Comment:Testing performed by : [address] [address] NRBC abs 0.00 0.00 - 0.01 K/cumm MICHELLE Comment:Testing performed by : [address] [address] Blood 01/07/2025 10:5 5 AM CDT 01/07/2025 11:02 AM CDT Alfie Browne MD LAB BLOOD ORDERABLES Final Result Performing Organization Address [facility] Co de Phone Number [address] of [employer]) [place] [address] * Urine culture Urine (01/07/2025 10:55 AM CDT) Report Final Report: Less than 100,000 colonies/mL (clinically insignificant growth based on current clinical standards) Comment:Testing performed by : [facility], [address] [facility] [place]., [address] Organism (CLINICALLY INSIGNIFICANT GROWTH MICHELLE Urine 01/07/2025 10:5 5 AM CDT 01/07/2025 4:50 PM CDT Narrative MICHELLE - 01/08/2025 10:29 PM CDT Testing performed by [facility] Microbiology Laboratory ([phone]) us Kirsten Thomas MD LAB MICROBIOLOGY - GENERAL ORDERABLES Final Result Performing Organization Address City/[facility]/ZIP Co de Phone Number [address] [employer]) [place] [address] * (ABNORMAL) Comprehensive metabolic panel (01/07/2025 10:55 AM CDT) Sodium 134(L) 135 - 145 mmol/L Comment:Testing performed by : [address] [address] Potassium, pl 4.2 3.3 - 4.9 mmol/L [facility] Comment:Testing performed by : [address] [address] Chloride 104 97 - 110 mmol/L [facility] Comment:Testing performed by : [address] [address] CO2 20(L) 22 - 32 mmol/L [facility] Comment:Testing performed by : [address] [address] Anion gap 10 2 - 15 mmol/L [facility] Comment:Testing performed by : [address] [address] BUN 6 6 - 25 mg/dL [facility] Comment:Testing performed by : [address] [address] Creatinine 0.40(L) 0.60 - 1.10 mg/dL [facility] Comment:Testing performed by : [address] [address] Glucose 112 70 - 199 mg/dL [facility] Comment: Interpretive Data Fasting glucose >/= [...] was last revised 2022. Testing performed by: [address] [address] Calcium 9.1 8.5 - 10.3 mg/dL [facility] Comment:Testing performed by : [address] [address] Bilirubin, total 0.2 0.1 - 1.2 mg/dL [facility] Comment:Testing performed by : [address] [address] Protein, pl 6.4(L) 6.5 - 8.5 g/dL MICHELLE VALDEZ Comment:Testing performed by : [address] [address] Albumin 3.6 3.5 - 5.0 g/dL MICHELLE Comment:Testing performed by : [address] [address] Alk phos 106 40 - 130 Units/L MICHELLE Comment:Testing performed by : [address] [address] ALT 24 7 - 45 Units/L MICHELLE Comment:Testing performed by : [address] [address] AST 19 10 - 45 Units/L MICHELLE Comment:Testing performed by : [address] [address] Blood 01/07/2025 10:5 5 AM CDT 01/07/2025 11:02 AM CDT us Alfie Browne MD LAB BLOOD ORDERABLES Final Result Performing Organization Address [facility] Co de Phone Number [address] [employer]) [place] [address] * GTT 100gm 3hr gestational diagnostic (01/06/2025 12:36 PM CDT) GTT 100g 3h gest 134 <=139 mg/dL Comment:Testing performed by : [address] [address] Blood 01/06/2025 12:3 6 PM CDT 01/06/2025 4:32 PM CDT Roger Preston MD LAB BLOOD ORDERABLES Fin al Result Performing Organization Address City/[facility]/ZIP Co de Phone Number [address] [address] * GTT 100gm 2hr gestational diagnostic (01/06/2025 11:32 AM CDT) GTT 100g 2h gest 89 <=154 mg/dL Comment:Testing performed by : [address] [address] Blood 01/06/2025 11:3 2 AM CDT 01/06/2025 12:49 PM CDT Roger Preston MD LAB BLOOD ORDERABLES Fin al Result Performing Organization Address [facility] Co de Phone Number [id number] [employer]) [place] [address] * GTT 100gm 1hr gestational diagnostic (01/06/2025 10:32 AM CDT) GTT 100g 1h gest 106 <=179 mg/dL Comment:Testing performed by : [address] [address] Blood 01/06/2025 10:3 2 AM CDT 01/06/2025 12:51 PM CDT Roger Preston MD LAB BLOOD ORDERABLES Fin al Result Performing Organization Address [facility] de Phone Number [address] [address] * GTT 100gm fasting gestational diagnostic (01/06/2025 [...] to 140 mg/dL Reference Interval Info: Maisha Bennett et al. Ramon Compared with National Diabetes Data Group Criteria for Diagnosing Gestational Diabetes. Obstetrics and Gynecology 2016:127 (5): 893-898. Diabetes Care 2020; 43(Suppl 1):S14-31 Current interpretive data was last revised 2020. Testing performed by: [facility], [address] [place] [address], [place]., [address] Blood 01/06/2025 9:30 AM CDT 01/06/2025 10:29 AM CDT Roger Preston MD LAB BLOOD ORDERABLES Fin al Result MICHELLE [facility] of [employer] [place] [address] * Hepatitis C antibody Blood (07/31/2024 10:39 AM NEUROSCIENCE SPECIALIST) Hep C Ab Nonreactive Nonreactive Comment: Antibodies [...] on 2019. Blood 07/31/2024 10:3 9 AM NEUROSCIENCE SPECIALIST 07/31/2024 4:45 PM NEUROSCIENCE SPECIALIST us Grady Willis MD LAB MICROBIOLOGY - GENERAL ORDERABLES Final Result Performing Organization Address City/[facility]/ZIP Co de Phone Number MICHELLE [facility] [place] [address] from Last 3 Months or Most Recently Relevant to Health Maintenance Insurance [employer] ACCESS CHOICE Member Subscriber Plan / Payer (Ef fective 2024-Present) Name:Ryder Bernard Relation to Subscriber:Self Name:Ryder Bernard Payer ID:[id number] (NAIC) Type:SMART Address: [address] CLAIMS [facility] [employer] CHOICE Member Subscriber Plan / Payer ( fective 2024-Present) Name:Ryder Bernard Ellie Relation to Subscriber:Self Name:Ryder Bernard Payer ID:[id number] (NAIC) Type:SMART Address: [facility] [id number] CLAIMS [employer] ACCESS CHOICE [employer] ACCESS CHOICE Advance Directives For more information, please contact: [phone] * Full Code (Latest Code Status on File) Date Activated Date Inactivated Comments 03/03/2025 4:23 PM 03/05/2025 5:10 PM * Full Code Date Activated Date Inactivated Comments 03/02/2025 9:02 PM 03/03/2025 4:23 PM Full CPR in ca se of cardiopulmonary arrest * Full Code Date Activated Date Inactivated Comments 11/08/2020 9:35 PM 11/10/2020 9:16 PM Care Teams Brick Burner Relationship Specialty Start Date End Date Ara Ball NP PCP - General Nurse Practitioner 12/03/20 Jet Portillo MD Referring Physician Cardiology 06/01/22 Cornelia Galvez, toxicologist Failure Coordinator Transplant 09/27/23
--- OUTSIDE RECORDS SUMMARY | 2025-03-23 17:44 | XMS_ITS | Continuity of Care Document ---
Author Name [facility] Organization [facility] Care Team Providers [employer] Officer Name Role Phone [facility] Unavailable Unavailable Problems Combined list of problems from Department of Defense and Veterans Affairs facilities. It does not include entries that were removed or entered in error. Problem Status Onset Date Problem Type Date of Resolution Comments Source fracture of phalanges of finger Active Condition Transcribed fro m ER encounter dated 09/22/13. DoD fracture of humerus distal end Inactive Condition [facility] visit for: laboratory Inactive Condition DoD visit for: 13+ year visit Active Condition DoD joint pain, localized in the knee Active Condition [facility] Observation For Suspected Condition Active Condition [facility] Parent Education: Active Condition DoD skin: rash [as Sx] Inactive Condition Do D cough Active Condition DoD allergic rhinitis Active Condition [facility] ganglion right foot Active Condition [facility] Outpatient Physician Consultation Active Condition DoD sinusitis acute Inactive Condition [facility] hydrarthrosis humerus / elbow right Active Condition [facility] visit for: refer patient without exam or treatment Inactive Condition [facility] stress incontinence Active Condition [facility] urinary tract infection Inactive Condition [facility] streptococcal infection group B Inactive Condition [facility] visit for: administrative purpose Inactive Condition Med already refilled by Dr Rainey. [facility] headache syndromes Active Condition B eing followed by [facility]. Will cont the current medication dose. DoD migraine headache Active Condition [facility] viral syndrome Inactive Condition Home otc meds. If sx persist or worsend then rtc. [facility] sore throat acute Inactive Condition RS is negat vaishali. DoD backache Inactive Condition Would like to evaluate for any spinal cord pathology, such as syrinx or tethered cord. DoD periorbital eye pain Inactive Condition This could represent a headache syndrome, such as migraine, but atypical. The vomiting is characteristic of migraine and they can be retroorbital, however, she tends to fidgit with the headache and there is no photo or phonophobia, which less typical. P DoD Medications Combined list of outpatient medications from Department of Defense and Veterans Affairs facilities.Medications provided include 1) outpatient medications from the last 15 months, and 2) patient-reported medications. Medication Details Route Status Patient Instructions Prescription Expires Prescription Number Last Dispense Date Ordering Provider Order Date Order Qty Source metoprolol succinate 25 mg oral tablet, extended release metoprol ol succinat e 25 mg oral tablet, extended release Start Date: 11/11/20 Status: Ordered Repeat number: 1 Ordered 2021 No Facilit y Access Allergies, Adverse Reactions, Alerts Combined list of allergies from Department of Defense and Veterans Affairs facilities. It does not include entries that were removed or entered in error. Substance Category Reaction Severity Reaction type Status Date Reported Comments Source No Known Allergies Drug allergy (disorder) active 10/29/2007 [facility] Immunizations Combined list of available immunizations from the Department of Defense and Veterans Affairs facilities. Immunization Series Date Given Administered By Site Reaction Lot Number CVX Code Drug Security Alarm Technician Status Comments Source influenza, injectable, quadrivalent, preservative free 2019 ALUL, () Not Given influenza , injectabl e, quadrival ent, preservat vaishali free DoD Influenza, injectable, MDCK, preservative free, quadrivalent 2018 ALUL, () Not Given Influenza , injectabl e, MDCK, preservat vaishali free, quadrival ent DoD Influenza, inj, MDCK, quadrivalent- pf 2017 zzLef t Arm [id number] Seqirus complet ed Influenza , inj, MDCK, quadrival ent-pf 09/04/17 Given Ambulat ory Pharmac y Influenza, injectable, Madin [place] Canine Kidney, preservative free, quadrivalent 1 2017 Unknown, Provider [id number] Seqirus (SEQ) complet ed Influenza , injectabl e, Madin [place] Canine Kidney, preservat vaishali free, quadrival ent DoD meningococcal A,C,Y,W-135 (MCV4P) 2015 zzLef t Arm [id number] sanofi pasteur complet ed meningoco ccal A,C,Y,W-1 35 (MCV4P) 05/03/16 Given Ambulat ory Pharmac y meningococcal polysaccharid e (groups A, C, Y and W-135) diphtheria toxoid conjugate vaccine (MCV4P) 1 2015 Unknown, Provider [id number] 114 Sanofi Pasteur (PMC) complet ed meningoco ccal polysacch aride (groups A, C, Y and W-135) diphtheri a toxoid conjugate vaccine (MCV4P) [facility] influenza, injectable, quadrivalent- pf 2013 [facility] Arm [id number] ID Biomedical complet ed influenza , injectabl e, quadrival ent-pf 08/12/14 Given Ambulat ory Pharmac y meningococcal A,C,Y,W-135 (MCV4P) [facility] [id number] sanofi pasteur complet ed meningoco ccal A,C,Y,W-1 35 (MCV4P) 08/12/14 Given Ambulat ory Pharmac y tetanus, diphtheria, acellular pertu is [id number] GlaxoSmithKli ne complet ed tetanus, diphtheri a, acellular pertussis 08/12/14 Given Ambulat ory Pharmac y Hep A, pediatric, unspecified formul [id number] GlaxoSmithKli ne complet ed Hep A, pediatric , unspecifi ed formul 08/12/14 Given Ambulat ory Pharmac y varicella virus vaccine 2013 [facility] Arm [id number] Merck & Company Inc complet ed varicella virus vaccine 08/12/14 Given Ambulat ory Pharmac y varicella virus vaccine 1 2013 Unknown, Provider [id number] 21 Merck (MSD) complet ed varicella virus vaccine DoD hepatitis A vaccine, pediatric dosage, unspecified formulation 1 2013 Unknown, Provider [id number] [facility] (SKB) complet ed hepatitis A vaccine, pediatric dosage, unspecifi ed formulati on DoD meningococcal polysaccharid e (groups A, C, Y and W-135) diphtheria toxoid conjugate vaccine (MCV4P) 1 2013 Unknown, Provider [id number] 114 Sanofi Pasteur (PMC) complet ed meningoco ccal polysacch aride (groups A, C, Y and W-135) diphtheri a toxoid conjugate vaccine (MCV4P) DoD tetanus toxoid, reduced diphtheria toxoid, and acellular pertu is vaccine, adsorbed 1 2013 Unknown, Provider [id number] 115 Smithine (SKB) complet ed tetanus toxoid, reduced diphtheri a toxoid, and acellular pertussis vaccine, adsorbed DoD Influenza, injectable, quadrivalent, preservative free 1 2013 Unknown, Provider [id number] (IDB) complet ed Influenza , injectabl e, quadrival ent, preservat vaishali free DoD influenza, seasonal, injectable-pf 2012 zzLef t Arm [id number] 140 Novartis Pharmaceutica ls complet ed influenza , seasonal, injectabl e-pf 06/03/13 Given Ambulat ory Pharmac y Influenza, seasonal, injectable, preservative free 5 2012 Unknown, Provider [id number] 140 Novartis Pharmaceutica l Carloz. (NOV) complet ed Influenza , seasonal, injectabl e, preservat vaishali free DoD influenza, seasonal, injectable-pf 2011 zzLef t Arm [id number] sanofi pasteur complet ed influenza , seasonal, injectabl e-pf 06/28/12 Given Ambulat ory Pharmac y Influenza, seasonal, injectable, preservative free 1 2011 Unknown, Provider [id number] 140 Willieofi Pasteur ([facility]) complet ed Influenza , seasonal, injectabl e, preservat vaishali free DoD influenza virus vaccine, live 2010 [id number] MediFat[employer] comple t ed influenza virus vaccine, live 08/16/11 Given Ambulat ory Pharmac y influenza virus vaccine, live, attenuated, for intranasal use 3 2010 Unknown, Provider [id number] 111 Aqu[employer] Inc. (MED) complet ed influenza virus vaccine, live, attenuate d, for intranasa l use DoD Hep A, pediatric, unspecified formul 2006 zzLef t Arm [id number] Merck & Company Inc complet ed Hep A, pediatric , unspecifi ed formul 05/07/07 Given Ambulat ory Pharmac y hepatitis A vaccine, pediatric dosage, unspecified formulation 1 2006 Unknown, Provider [id number] 31 Merck (MSD) complet ed hepatitis A vaccine, pediatric dosage, unspecifi ed formulati on DoD influenza virus vaccine, whole virus 2005 zzLef t Arm [id number] 16 sanofi pasteur complet ed influenza virus vaccine, whole virus 07/18/06 Given Ambulat ory Pharmac y influenza virus vaccine, whole virus 1 2005 Unknown, Provider [id number] 16 Sanofi Pasteur (PMC) complet ed influenza virus vaccine, whole virus DoD influenza virus vaccine, whole virus 2004 zzLef t Arm [id number] 16 sanofi pasteur complet ed influenza virus vaccine, whole virus 08/01/05 Given Ambulat ory Pharmac y influenza virus vaccine, whole virus 1 2004 Unknown, Provider [id number] 16 Sanofi Pasteur ([facility]) complet ed influenza virus vaccine, whole virus DoD DTaP 2003 Transcr ibed 20 Unknown complet ed DTaP 10/03/03 Given Ambulat ory Pharmac y measles/mumps /rubella virus vaccine 2003 Transcr ibed 03 Unknown complet ed measles/m umps/rube lla virus vaccine 10/03/03 Given Ambulat ory Pharmac y varicella virus vaccine 2003 Transcr ibed 21 Unknown complet ed varicella virus vaccine 10/03/03 Given Ambulat ory Pharmac y poliovirus vaccine, inactivated 2003 Transcr ibed 10 Unknown complet ed polioviru s vaccine, inactivat ed 10/03/03 Given Ambulat ory Pharmac y measles, mumps and rubella virus vaccine 2 2003 Unknown, Provider Transcr ibed 03 Other (OTH) complet ed measles, mumps and rubella virus vaccine DoD poliovirus vaccine, inactivated 4 2003 Unknown, Provider Transcr ibed 10 Other (OTH) complet ed polioviru s vaccine, inactivat ed DoD diphtheria, tetanus toxoids and acellular pertu is vaccine 5 2003 Unknown, Provider Transcr ibed 20 Other (OTH) complet ed diphtheri a, tetanus toxoids and acellular pertussis vaccine DoD varicella virus vaccine 1 2003 Unknown, Provider Transcr ibed 21 Other (OTH) complet ed varicella virus vaccine DoD Hib, unspecified formulation 2000 Transcr ibed 17 Unknown complet ed Hib, unspecifi ed formulati on 01/18/01 Given Ambulat ory Pharmac y DTaP 2000 Transcr ibed 20 Unknown complet ed DTaP 01/18/01 Given Ambulat ory Pharmac y pneumococcal 7-valent vaccine 2000 Transcr ibed 100 Unknown complet ed pneumococ ede 7-valent vaccine 01/18/01 Given Ambulat ory Pharmac y Haemophilus influenzae type b vaccine, conjugate unspecified formulation 4 2000 Unknown, Provider Transcr ibed 17 Other (OTH) complet ed Haemophil us influenza e type b vaccine, conjugate unspecifi ed formulati on DoD diphtheria, tetanus toxoids and acellular pertu is vaccine 4 2000 Unknown, Provider Transcr ibed 20 Other (OTH) complet ed diphtheri a, tetanus toxoids and acellular pertussis vaccine DoD pneumococcal conjugate vaccine, 7 valent 2 2000 Unknown, Provider Transcr ibed 100 Other (OTH) complet ed pneumococ ede conjugate vaccine, 7 valent DoD pneumococcal 7-valent vaccine 1999 Transcr ibed 100 Unknown complet ed pneumococ ede 7-valent vaccine 07/25/00 Given Ambulat ory Pharmac y pneumococcal conjugate vaccine, 7 valent 1 1999 Unknown, Provider Transcr ibed 100 Other (OTH) complet ed pneumococ ede conjugate vaccine, 7 valent DoD measles/mumps /rubella virus vaccine 1999 Transcr ibed 03 Unknown complet ed measles/m umps/rube lla virus vaccine 07/24/00 Given Ambulat ory Pharmac y measles, mumps and rubella virus vaccine 1 1999 Unknown, Provider Transcr ibed 03 Other (OTH) complet ed measles, mumps and rubella virus vaccine DoD DTaP 1999 Transcr ibed 20 Unknown complet ed DTaP 03/10/00 Given Ambulat ory Pharmac y Hib, unspecified formulation 1999 Transcr ibed 17 Unknown complet ed Hib, unspecifi ed formulati on 03/10/00 Given Ambulat ory Pharmac y hepatitis B pediatric/ado lescent 1999 Transcr ibed 08 Unknown complet ed hepatitis B pediatric /adolesce nt 03/10/00 Given Ambulat ory Pharmac y hepatitis B vaccine, pediatric or pediatric/ado lescent dosage 3 1999 Unknown, Provider Transcr ibed 08 Other (OTH) complet ed hepatitis B vaccine, pediatric or pediatric /adolesce nt dosage DoD Haemophilus influenzae type b vaccine, conjugate unspecified formulation 3 1999 Unknown, Provider Transcr ibed 17 Other (OTH) complet ed Haemophil us influenza e type b vaccine, conjugate unspecifi ed formulati on DoD diphtheria, tetanus toxoids and acellular pertu is vaccine 3 1999 Unknown, Provider Transcr ibed 20 Other (OTH) complet ed diphtheri a, tetanus toxoids and acellular pertussis vaccine DoD poliovirus vaccine, inactivated 1999 Transcr ibed 10 Unknown complet ed polioviru s vaccine, inactivat ed 01/19/00 Given Ambulat ory Pharmac y poliovirus vaccine, inactivated 3 1999 Unknown, Provider Transcr ibed 10 Other (OTH) complet ed polioviru s vaccine, inactivat ed DoD hepatitis B pediatric/ado lescent 1999 Transcr ibed 08 Unknown complet ed hepatitis B pediatric /adolesce nt 99 Given Ambulat ory Pharmac y DTaP 1999 Transcr ibed 20 Unknown complet ed DTaP 99 Given Ambulat ory Pharmac y poliovirus vaccine, inactivated 1999 Transcr ibed 10 Unknown complet ed polioviru s vaccine, inactivat ed 99 Given Ambulat ory Pharmac y Hib, unspecified formulation 1999 Transcr ibed 17 Unknown complet ed Hib, unspecifi ed formulati on 99 Given Ambulat ory Pharmac y hepatitis B vaccine, pediatric or pediatric/ado lescent dosage 2 1999 Unknown, Provider Transcr ibed 08 Other (OTH) complet ed hepatitis B vaccine, pediatric or pediatric /adolesce nt dosage DoD poliovirus vaccine, inactivated 2 1999 Unknown, Provider Transcr ibed 10 Other (OTH) complet ed polioviru s vaccine, inactivat ed DoD Haemophilus influenzae type b vaccine, conjugate unspecified formulation 2 1999 Unknown, Provider Transcr ibed 17 Other (OTH) complet ed Haemophil us influenza e type b vaccine, conjugate unspecifi ed formulati on DoD diphtheria, tetanus toxoids and acellular pertu is vaccine 2 1999 Unknown, Provider Transcr ibed 20 Other (OTH) complet ed diphtheri a, tetanus toxoids and acellular pertussis vaccine DoD poliovirus vaccine, inactivated 1999 Transcr ibed 10 Unknown complet ed polioviru s vaccine, inactivat ed 99 Given Ambulat ory Pharmac y hepatitis B pediatric/ado lescent 1999 Transcr ibed 08 Unknown complet ed hepatitis B pediatric /adolesce nt 99 Given Ambulat ory Pharmac y DTaP 1999 Transcr ibed 20 Unknown complet ed DTaP 99 Given Ambulat ory Pharmac y Hib, unspecified formulation 1999 Transcr ibed 17 Unknown complet ed Hib, unspecifi ed formulati on 99 Given Ambulat ory Pharmac y hepatitis B vaccine, pediatric or pediatric/ado lescent dosage 1 1999 Unknown, Provider Transcr ibed 08 Other (OTH) complet ed hepatitis B vaccine, pediatric or pediatric /adolesce nt dosage DoD poliovirus vaccine, inactivated 1 1999 Unknown, Provider Transcr ibed 10 Other (OTH) complet ed polioviru s vaccine, inactivat ed DoD Haemophilus influenzae type b vaccine, conjugate unspecified formulation 1 1999 Unknown, Provider Transcr ibed 17 Other (OTH) complet ed Haemophil us influenza e type b vaccine, conjugate unspecifi ed formulati on DoD diphtheria, tetanus toxoids and acellular pertu is vaccine 1 1999 Unknown, Provider Transcr ibed 20 Other (OTH) complet ed diphtheri a, tetanus toxoids and acellular pertussis vaccine DoD Encounters Combined list of: 1) Encounters from Department of Veterans Affairs facilities going backup to the last 18 months, not all VA inpatient encounters are included; 2) Encounters from the Department of Defense facilities going backup to 280 months. Location Location Details Encounter Type Encounter Number Reason For Visit Attending Provider ADM Date DC Date Status Disposition Source [facility] Peds Neurology ) OUTPATIENT [id number] NEW PATIENT /SAW A [place] LAST/MO M WILL BRING MRI. DEMIAN RAINEY 03/09 Released w/o Limitations Formerly [facility] Peds Neurolo gy) [facility] EEG) OUTPATIENT [id number] [facility] DEM[facility] RAINEY 03/10 [facility] Neurology ) TELE CONSULT [id number] Mom is calling back per your directi on DEMIAN RAINEY 03/14 [facility] P[facility] Conscious Sedation[facility] OUTPATIENT [id number] [place] [facility] 03/22 [facility] P[facility] Conscio us Sedatio n) [facility] Neurology ) TELE CONSULT [id number] test results DEMIAN RAINEY 03/28 [facility]) [facility] [place] Neu[facility] [place] TELE CONSULT [id number] meds DEMIAN RAINEY 03/28 [facility] N Primary Care) TELE CONSULT [id number] migrain e sorto tx. JOHNNY GIRARD 10/17 [facility] Care) [facility] [place] N Primary Care) OUTPATIENT [id number] ear infecti on JOHNNY GIRARD 12/16 [facility]itations [facility] Primary Care) [facility] Neurology ) TELE CONSULT [id number] follow up DEMIAN RAINEY Jeff 01/09 [facility] N Primary Care) TELE CONSULT [id number] med refill JOHNNY GIRARD 04/05 [facility] Primary Care) [facility] N Primary Care) TELE CONSULT [id number] Med Refill JOHNNY GIRARD 07/04 [facility] Primary Care) [facility] Neurology ) TELE CONSULT [id number] contact ed by email for meds refill DEMIAN RAINEY Jeff 07/04 [facility] [place] N Primary Care) OUTPATIENT [id number] poss strep, fever, vomitti ng BESSIE WILLS 10/11 [facility]ased w/o Limitations [facility] Care) [facility] [place] N Primary Care) OUTPATIENT [id number] bladder probs LAKHWINDER LUGO 01/02 Released w/o Limitations Formerly [facility] N Primary Care) [facility] N Primary Care) TELE CONSULT [id number] Child Neurolo RASHEEDA RiceRamón Lawrence 01/04 Formerly [facility] N Primary Care) [facility](87 Pediatric s) TELE CONSULT [id number] Terri ce consult -[place] STOREY ENRIQUETA S 03/10 Referred for Appointment [facility](8 7 Pediatr ics) [facility](87 Pediatric s) TELE CONSULT [id number] PT Ortho CORDELIA ENRIQUETA S 03/14 [facility]erred for Appointment [facility](8 7 Pediatr ics) [facility](87 Pediatric s) TELE CONSULT [id number] Referra l renewal /ZuriQUINCY Carter 03/28 [facility](8 7 Pediatr ics) [facility](87 Pediatric s) TELE CONSULT [id number] STEFANIE REFERRA L NEEDED BROKEN ARM/ JOEL Leyva 09/05 Referred for Appointment [facility](8 7 Pediatr ics) [facility](87 Pediatric s) OUTPATIENT [id number] QUINCY Denton 10/25 Released w/o Limitations [facility](8 7 Pediatr ics) [address] [place] [address]([address] [facility] ([place], [place]) [facility] 4) TELE CONSULT [id number] Notes Entered by: Dilip OLIVAREZ 30 Jan 2012 1405 ------- ------- ------- ------- -- Referra l to JOEL Suazo 01/29 [facility]erred for Appointment [facility](8 7 Family [facility] 4) [facility](87 Pediatric s) TELE CONSULT [id number] Notes Entered by: Melinda QURESHI 07 May 2012 0811 ------- ------- ------- ------- -- stefanie Zarate referra l needed /// ANUJ PEARSON 05/07 Referred for Appointment [facility](8 7 Pediatr ics) [facility](87 Pediatric s) OUTPATIENT [id number] MILAGROS Chow 08/24 Released w/o Limitations [facility](8 7 Pediatr ics) [facility](87 Pediatric s) TELE CONSULT [id number] Notes Entered by: JOEL MENDEZ 18 Sep 2012 0853 ------- ------- ------- ------- -- New A ortho JOEL Bocanegra 09/18 Referred for Appointment [facility](8 7 Pediatr ics) [facility](87 Pediatric s) TELE CONSULT [id number] Notes Entered by: JOEL MENDEZ 02 Oct 2012 1421 ------- ------- ------- ------- -- Renewal JOEL Bocanegra 10/02 Referred for Appointment [facility](8 7 Pediatr ics) [facility](87 Pediatric s) TELE CONSULT [id number] Notes Entered by: KYLIE MARTE 22 Nov 2012 1404 ------- ------- ------- ------- -- [facility]/26 3 MILAGROS ACUNA 11/22 [facility](8 7 Pediatr ics) [facility](87 Pediatric s) OUTPATIENT [id number] lump on foot CLEMENTE BLACK 12/20 Released w/o Limitations [facility](8 7 Pediatr ics) [facility](87 Pediatric s) OUTPATIENT [id number] severe cough CLEMENTE BLACK 03/05 Released w/o Limitations [facility](8 7 Pediatr ics) [facility](87 Pediatric s) OUTPATIENT [id number] sores hands, feet mouth MILAGROS ACUNA 03/14 Released w/o Limitations [facility](8 7 Pediatr ics) [facility](87 Pediatric s) TELE CONSULT [id number] Notes Entered by: Melinda QURESHI 18 Mar 2013 1255 ------- ------- ------- ------- -- Hand-fo angelica-logan h// ANUJ MELENDREZ 03/18 Released to Self Care [facility](8 7 Pediatr ics) [facility](87 Pediatric s) OUTPATIENT [id number] WELL CHECK MILAGROS ACUNA 03/27 Released w/o Limitations [facility](8 7 Pediatr ics) [facility](87 Pediatric s) TELE CONSULT [id number] Notes Entered by: ANUJ REEDER 28 Mar 2013 1033 ------- ------- ------- ------- -- 2nd opinion referra l for neurolo ANUJ Dyer 03/28 Referred for Appointment [facility](8 7 Pediatr ics) [facility](87 Pediatric s) TELE CONSULT [id number] Notes Entered by: ALVARADO ACUNA 29 Mar 2013 1512 ------- ------- ------- ------- -- Labs MILAGROS ACUNA 03/29 [facility](8 7 Pediatr ics) [facility](87 Pediatric s) TELE CONSULT [id number] Notes Entered by: Janie RYDER 13 Jun 2013 0912 ------- ------- ------- ------- -- Request ing out of state Orthope dic referra janie/ANUJ Edward 06/13 Referred for Appointment [facility](8 7 Pediatr ics) [facility] [facility](87 Pediatric s) TELE CONSULT [id number] Notes Entered by: ANUJ REEDER 17 Jun 2013 0844 ------- ------- ------- ------- -- Ortho referra l- was out of area and now back in [place] ANUJ REEDER 06/17 Released to [facility](8 7 Pediatr ics) [facility](87 Pediatric s) TELE CONSULT [id number] Notes Entered by: Ramón RUSSELL 18 Jun 2013 1347 ------- ------- ------- ------- -- Referra janie Renewal Laurie cherry/BERNARDA Gaspar 06/18 Other Not Elsewhere Classified [facility](8 7 Pediatr ics) [facility](87 Pediatric s) TELE CONSULT [id number] Notes Entered by: ANUJ REEDER 16 Jul 2013 0734 ------- ------- ------- ------- -- EEG referANUJ Ayala 07/16 Referred for Appointment [facility](8 7 Pediatr ics) [facility](87 Pediatric s) TELE CONSULT [id number] Notes Entered by: KYLIE MARTE 23 Jul 2013 1227 ------- ------- ------- ------- -- Network Results -NEURO- 06/09 CLEMENTE BLACK 07/23 [facility](8 7 Pediatr ics) [facility](87 Pediatric s) TELE CONSULT [id number] Notes Entered by: KYLIE MARTE 06 Aug 2013 0816 ------- ------- ------- ------- -- Network Results -ORTHO- 07/10 CLEMENTE BLACK 08/06 [facility](8 7 Pediatr ics) [facility](87 Pediatric s) TELE CONSULT [id number] Notes Entered by: Sterling MORA 23 Sep 2013 0727 ------- ------- ------- ------- -- Ortho referra lima/BERNARDA Olvera 09/23 Other Not Elsewhere Classified [facility](8 7 Pediatr ics) [facility](87 Pediatric s) TELE CONSULT [id number] Notes Entered by: LIZETH SANCHES 24 Sep 2013 1112 ------- ------- ------- ------- -- ER results 09/22/19 14 CIARA RAMIREZ 09/24 [facility](8 7 Pediatr ics) [facility](87 Pediatric s) TELE CONSULT [id number] Notes Entered by: KYLIE MARTE 03 Oct 2013 1534 ------- ------- ------- ------- -- Network Results -NEUROL OGY-08/28 4 LUIS DANIEL AMARO 10/03 [facility](8 7 Pediatr ics) [address] [place] [address]( [facility]) TELE CONSULT [id number] Notes Entered by: LIZETH SANCHES 31 Oct 2013 1416 ------- ------- ------- ------- -- ER results 4 SAYDA PATEL 10/31 [facility](8 7 [facility] 5) [facility]( [facility] 5) TELE CONSULT [id number] Notes Entered by: CIPRIANO HUTCHINSON 11 Nov 2013 0915 ------- ------- ------- ------- -- ER f/u concuss ion/wri st fractur e//SOLEDAD BASS 11/11 [facility](8 7 [facility] 5) [facility]( [facility] 5) OUTPATIENT [id number] wrist fx/conc on license of [facility] clearan SOLEDAD Stanley 11/12 Released w/o Limitations [facility](8 7 [facility] 5) [facility]( [facility] 5) TELE CONSULT [id number] Notes Entered by: KYLIE MARTE 19 Nov 2013 1326 ------- ------- ------- ------- -- Network Results -ORTHO- 10/11 SAYDA PATEL 11/19 [facility](8 7 [facility] 5) [address] [place] [address](87 [facility] 5) OUTPATIENT [id number] swollen knee SOLEDAD CHATMAN 11/28 Released w/o Limitations [facility]([address] [facility] [place] 5) [facility]([address] [place] [address] 5) TELE CONSULT [id number] Notes Entered by: Laureano GIRARD 10 Dec 2013 1450 ------- ------- ------- ------- -- MRI results /PATEL CIARA ARCOS 12/10 [facility]([address] [facility] [place] 5) [facility]([address] [place] [address]) TELE CONSULT [id number] Notes Entered by: JOSE HO 18 Dec 2013 1621 ------- ------- ------- ------- -- Network results -larch- 12/09 PATEL, SAYDA Nichols 12/18 [facility]([address] [facility] [place] 5) [facility]([address] [place] [address]) TELE CONSULT [id number] Notes Entered by: ROSA LESLIE 05 Jan 2014 1032 ------- ------- ------- ------- -- Network Results -Ortho- 11/08 PATEL, SAYDA Nichols 01/05 [facility]([address] [facility] [place] 5) [facility]([address] [place] [address]) TELE CONSULT [id number] Notes Entered by: ILAN PARKER 06 Jan 2014 0907 ------- ------- ------- ------- -- Network Results -Ortho- 12/09 PATEL, SAYDA Nichols 01/06 [facility]([address] [facility] [place] 5) [facility]([address] [place] [address] 5) TELE CONSULT [id number] Notes Entered by: VAL CASTRO V 10 Jan 2014 1338 ------- ------- ------- ------- -- Network results -Radiol ogy-11/26 PATEL, SAYDA Q 01/10 [facility](8 7 [facility] 5) [facility]([address] [place] [address] Clinic 4) TELE CONSULT [id number] Notes Entered by: BRYSON VASQUEZ 27 Jan 2014 1338 ------- ------- ------- ------- -- Network Results -Ortho- 01/08 SAYDA PATEL 01/27 [facility]([address] [facility] [place] 4) [facility]([address] [place] [address] 4) OUTPATIENT [id number] SOLEDAD Zamora 03/26 Released w/o Limitations [facility]([address] [facility] [place] 4) [facility]([address] [place] [address] 4) TELE CONSULT [id number] Notes Entered by: JULIANN VALLADARES 01 Apr 2014 1202 ------- ------- ------- ------- -- Request ing Rx from Nurs[facility] r for adoptio n home study PAULO NEAL 04/01 [facility]([address] [facility] [place] 4) [facility] Team Red) OUTPATIENT [id number] headach e/body aches FENRY COTO 04/21 Released w/o Limitations [address] [place] [address](8 7 [facility] Team Red) [address] [place] [address]([address] [place] [address] 4) TELE CONSULT [id number] Notes Entered by: Sterling MORA 24 Apr 2014 1425 ------- ------- ------- ------- -- Lab result/ CIARA Vaughan 04/24 [facility]([address] [facility] [place] 4) [facility] Team Red) TELE CONSULT [id number] Notes Entered by: FERNY COBB 02 May 2014 0653 ------- ------- ------- ------- -- Normal allergy screeni CHANCELLOR Sterling Amaya 05/02 [facility](8 7 [facility] Team Red) [facility]([address] [place] [address] 4) OUTPATIENT [id number] joint pain SOLEDAD CHATMAN Janie 07/15 Released w/o Limitations [address] [place] [address]([address] [place] [address] 4) [address] [place] [address]([address] [place] [address]) TELE CONSULT [id number] Notes Entered by: ERIC BELTRE FIORELLA Lima 17 Jul 2014 1217 ------- ------- ------- ------- -- Xray f/u ERIC SPENCER 07/[address] [place] [address]([address] [place] [address] 4) [address] [place] [address]([address] [place] [address]) TELE CONSULT [id number] Notes Entered by: Janie RYDER 29 Jul 2014 0905 ------- ------- ------- ------- -- Request ing notes and x ray results faxed to [facility]/ JULIA Llanos 07/[address] [place] [address]([address] [place] [address]) [address] [place] [address]([address] [place] [address]) TELE CONSULT [id number] Notes Entered by: Sterling MORA 08 Aug 2014 1527 ------- ------- ------- ------- -- Urgent Care resferr JOEL Moseley 08/08 Referred for Appointment [address] [place] [address]([address] [place] [address]) [address] [place] [address]([address] [place] [address]) OUTPATIENT [id number] joint pain SAYDA PATEL 08/12 Released w/o Limitations [address] [place] [address]([address] [place] [address] 4) [address] [place] [address]([address] [place] [address]) TELE CONSULT [id number] Notes Entered by: Janie RYDER 14 Aug 2014 1104 ------- ------- ------- ------- -- Lab results /JOEL Cook 08/[address] [place] [address]([address] [place] [address] 4) [address] [place] [address]([address] [place] [address]) TELE CONSULT [id number] Notes Entered by: KAYLEE COOK 19 Aug 2014 1603 ------- ------- ------- ------- -- Normal lab results /Patel AN BRUNO KANCHAN 08/19 [facility]([address] [place] [address]) [address] [place] [address]([address] [place] [address]) TELE CONSULT [id number] Notes Entered by: TIFFANIE GREENE 06 Oct 2014 1008 ------- ------- ------- ------- -- Network Results - RHEUM 09/11 ANNA REYNA V 10/06 [facility]([address] [place] [address]) [address] [place] [address]([facility] Team Blue) TELE CONSULT [id number] Notes Entered by: LIZETH SANCHES 07 Nov 2014 0936 ------- ------- ------- ------- -- ER results 11/07/19 15 ANNA REYNA V 11/[address] [place] [address]([address] [place] [address] Team Blue) [address] [place] [address]([address] [place], [place] [address]ate ) OUTPATIENT [id number] Notes Entered by: JULIANN VALLADARES 15 Jan 2015 1301 ------- ------- ------- ------- -- left ear pain PAULO NEAL 01/15 Released w/o Limitations [address] [place] [address]([address] [place] [address]) [address] [place] [address]([facility] Team Blue) TELE CONSULT [id number] Notes Entered by: NIXON HINES 27 Apr 2015 1257 ------- ------- ------- ------- -- Cough, congest ion/UC osmar lima/ROYER Morgan 04/[address] [place] [address]([address] [place] [address] Team Blue) [address] [place] [address]([facility] Team Blue) OUTPATIENT [id number] spots on back SHAINA SANTANA 08/10 Released w/o Limitations [address] [place] [address]([address] [place] [address] Team Blue) [address] [place] [address]([facility] Team Blue) TELE CONSULT [id number] Notes Entered by: Sterling MORA 22 Sep 2015 0955 ------- ------- ------- ------- -- Osmar lima /JOSE CRUZ Plasencia 09/22 [facility](8 7 [facility] Team Blue) [facility](87 [facility] Team Blue) OUTPATIENT [id number] SHAINA Guevara 10/19 Released w/o Limitations [facility](8 7 [facility] Team Blue) [facility](87 [facility] Team Blue) OUTPATIENT [id number] SHAINA Salazar 11/09 Released w/o Limitations [facility](8 7 [facility] Team Blue) [facility](87 [facility] Team Blue) TELE CONSULT [id number] Notes Entered by: KAYLEE COOK 18 Jan 2016 0827 ------- ------- ------- ------- -- Maryann/KAYLEE Oviedo 01/17 Released to Self Care [facility](8 7 [facility] Team Blue) [facility](87 Pediatric s) OUTPATIENT [id number] school/ sports physica l/no NADINE Parnell 04/27 Released w/o Limitations [facility](8 7 Pediatr ics) [facility](87 Pediatric s) TELE CONSULT [id number] Notes Entered by: PRIYANKA THOMAS 28 Apr 2016 1338 ------- ------- ------- ------- -- Timo dilip lima/PRIYANKA Torrez 04/28 Immediate Referral [facility](8 7 Pediatr ics) [facility](87 [facility] Team White) TELE CONSULT [id number] Notes Entered by: MARILEE LOPEZ 15 Jul 2016 1414 ------- ------- ------- ------- -- please see ER results in [facility] [id number] ROSALIO PASCUAL 07/15 [facility](8 7 [facility] Team White) [facility](87 [facility] Team White) OUTPATIENT [id number] Joint pain/el bow/wri st/knee pain ROSALIO PASCUAL 10/14 Released w/o Limitations [facility](8 7 [facility] Team White) [facility](87 [facility] Team White) TELE CONSULT [id number] Notes Entered by: ROSALIO ZAPATA 21 Oct 2016 1414 ------- ------- ------- ------- -- Lab results DELIA RAYA 10/21 Other Not Elsewhere Classified [facility](8 7 [facility] Team White) [facility]( [facility]) OUTPATIENT [id number] Notes Entered by: MANOJ QUESADA 31 Oct 2016 1038 ------- ------- ------- ------- -- TAM Ken 10/31 Released w/o Limitations [facility](8 7 Optomet ry Clinic) [facility](87 [facility] Team Red) TELE CONSULT [id number] Notes Entered by: OMAYRA JONES 01 Nov 2016 1600 ------- ------- ------- ------- -- Network Results - NEURO- 10/28/16 ROSALIO PASCUAL 11/01 [facility](8 7 [facility] Team Red) [facility](87 [facility]) TELE CONSULT [id number] Notes Entered by: MANOJ QUESADA 10 Nov 2016 1348 ------- ------- ------- ------- -- No show MANOJ ISBELL 11/10 Other Not Elsewhere Classified [facility](8 7 Optomet ry Clinic) [facility](87 [facility] Team White) TELE CONSULT [id number] Notes Entered by: KATHY MENDOZA T 19 Dec 2016 1010 ------- ------- ------- ------- -- Sore throat/ fever/D TG Auguste N 12/19 Released w/o Limitations [facility](8 7 [facility] Team White) [facility](87 [facility] Team White) OUTPATIENT [id number] Notes Entered by: ALBINO KRAUSE 19 Dec 2016 1428 ------- ------- ------- ------- -- THROAT PAIN TG KELLEY 12/19 Released w/o Limitations [facility](8 7 [facility] Team White) [facility])(Sco tt Peds Team Julia) OUTPATIENT [id number] school/ sports physica l / KEYSHAWN ARAUZ 03/28 Released w/o Limitations [facility])(S cott Peds Team Julia) [facility])(Sco tt Peds Team Julia) TELE CONSULT [id number] Notes Entered by: Sterling CISNEROS 28 Mar 2017 1334 ------- ------- ------- ------- -- Tylenol RX and DERM LELO Jones 03/[address] [place] [address] Group Kt [facility])(S cott Peds Team Julia) [facility] K[facility])(Cto tt Peds Team Julia) TELE CONSULT [id number] Notes Entered by: Janie CAMPO 03 Apr 2017 1459 ------- ------- ------- ------- -- FYI: jonna/ALTAGRACIA Jean Baptiste 04/03 Advice Assessment [facility] K[facility])(S cott Peds Team Julia) [address] [place] [address] Group Kt [facility])(Sco tt Peds Team Julia) TELE CONSULT [id number] Notes Entered by: JORGE PAZ 09 Jun 2017 1057 ------- ------- ------- ------- -- Network Results -NEUROL OGY 05/29/17 ROSALIND GUSMAN 06/[address] [place] [address])(S manoj Boss Team Julia) [address] [place] [address])(War rior Op Med Cln Tm A Ad) OUTPATIENT [id number] Cough/r unny nose/he adeache /fever/ congest ion [id number] RONA BRADY 10/02 Released w/o Limitations [address] [place] [address])(W arrior Op Med Cln Tm A Ad) [address] [place] [address])(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) TELE CONSULT [id number] Notes Entered by: SOPHY MACEDO 18 Jul 2018 0926 ------- ------- ------- ------- -- SX - Lump in Right Breast / - JUAREZ Wing 07/18 Referred for Appointment [address] [place] [address])(G ynecolo gy) [address] [place] [address])(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) OUTPATIENT [id number] 9 breast lump (r) ANIKET GE 07/31 Released w/o Limitations [address] [place] [address])(G ynecolo gy) [address] [place] [address])(War rior Op Med Cln Tm A Ad) TELE CONSULT [id number] Notes Entered by: MIKE KAUR 05 Oct 2018 1546 ------- ------- ------- ------- -- Optomet kimberly Suarez / Emre / - HOLLY Dorsey 10/05 Other Not Elsewhere Classified [address] [place] [address])(W arrior Op Med Cln Tm A Ad) Procedures Combined list of: 1) Procedures from Department of Veterans Affairs facilities [facility], not all VA non-surgical procedures are included; 2) All procedures from the Department of Defense facilities. Procedure Procedure Type Code Date Perfomer Comments Sourc e No data available for this section Ambul[facility] ry Pharmacy Non-Physician Phone Call To Patient/Provider Brief (5-10min) Non-Physician Phone Call To Patient/Provider Brief (5-10min) [id number] [facility] Non-Physician Phone Call To Patient/Provider Brief (5-10min) Non-Physician Phone Call To Patient/Provider Brief (5-10min) [id number] [facility] Non-Physician Phone Call To Patient/Provider Brief (5-10min) Non-Physician Phone Call To Patient/Provider Brief (5-10min) [id number] [facility] Non-Physician Phone Call To Pt/Provider Intermed (11-20 min) Non-Physician Phone Call To Pt/Provider Intermed (11-20 min) [phone] [facility] Non-Physician Phone Call To Patient/Provider Brief (5-10min) Non-Physician Phone Call To Patient/Provider Brief (5-10min) [id number] [facility] Ophthalmological Prior Patient Start Intermediate Level Care Ophthalmological Prior Patient Start Intermediate Level Care [phone] [facility] Non-Physician Phone Call To Patient/Provider Brief (5-10min) Non-Physician Phone Call To Patient/Provider Brief (5-10min) [phone] JOSE CRUZ MORENO [facility] Non-Physician Phone Call To Patient/Provider Brief (5-10min) Non-Physician Phone Call To Patient/Provider Brief (5-10min) [id number] ERIC SPENCER [facility] Non-Physician Phone Call To Patient/Provider Brief (5-10min) Non-Physician Phone Call To Patient/Provider Brief (5-10min) [phone] KANCHAN ANNE [facility] Non-Physician Phone Call To Patient/Provider Brief (5-10min) Non-Physician Phone Call To Patient/Provider Brief (5-10min) [id number] KANCHAN ANNE [facility] Non-Physician Phone Call To Patient/Provider Brief (5-10min) Non-Physician Phone Call To Patient/Provider Brief (5-10min) [phone] [facility] Non-Physician Phone Call To Patient/Provider Brief (5-10min) Non-Physician Phone Call To Patient/Provider Brief (5-10min) [id number] [facility] Visual Function Screening Visual Function Screening [phone] [facility] POLIOVIRUS VACCINE, INACTIVATED (IPV), FOR SUBCUTANEOUS OR INTRAMUSCULAR USE 005 [facility] INJECTION, MIDAZOLAM HCL, PER [address] [facility] INTRAVENOUS INFUSION FOR THERAPY/DIAGNOSIS, ADMINISTERED BY PHYSICIAN OR UNDER DIRECT SUPERVISION OF PHYSICIAN; UP TO ONE HOUR 005 [facility] MEDICAL CONFERENCE BY A PHYSICIAN WITH INTERDISCIPLINARY TEAM OF HEALTH PROFESSIONALS OR REPRESENTATIVES OF COMMUNITY AGENCIES TO COORDINATE ACTIVITIES OF PATIENT CARE; APPROXIMATELY 30 MINUTES 004 DoD TELE ASSESS & MGT SRV PROV QUAL NONPHYS HLTH CARE PRO TO EST PAT,PARENT,GUARD NOT ORIG REL ASSESS & MGT SRV PROV W/IN PREV 7 DAYS NOR LEAD ASSESS & MGT SRV/PX W/IN NXT 24 HR/SOON APT;5-10 MIN MED DIS 019 DoD TELE ASSESS & MGT SRV PROV QUAL NONPHYS HLTH CARE PRO TO EST PAT,PARENT,GUARD NOT ORIG REL ASSESS & MGT SRV PROV W/IN PREV 7 DAYS NOR LEAD ASSESS & MGT SRV/PX W/IN NXT 24 HR/SOON APT;5-10 MIN MED DIS 018 DoD TELE ASSESS & MGT SRV PROV QUAL NONPHYS HLTH CARE PRO TO EST PAT,PARENT,GUARD NOT ORIG REL ASSESS & MGT SRV PROV W/IN PREV 7 DAYS NOR LEAD ASSESS & MGT SRV/PX W/IN NXT 24 HR/SOON APT;5-10 MIN MED DIS 017 DoD TELE ASSESS & MGT SRV PROV QUAL NONPHYS HLTH CARE PRO TO EST PAT,PARENT,GUARD NOT ORIG REL ASSESS & MGT SRV PROV W/IN PREV 7 DAYS NOR LEAD ASSESS & MGT SRV/PX W/IN NXT 24H/SOON APT; 11-20 MIN MED DIS 017 DoD TELE ASSESS & MGT SRV PROV QUAL NONPHYS HLTH CARE PRO TO EST PAT,PARENT,GUARD NOT ORIG REL ASSESS & MGT SRV PROV W/IN PREV 7 DAYS NOR LEAD ASSESS & MGT SRV/PX W/IN NXT 24 HR/SOON APT;5-10 MIN MED DIS 017 [facility] OPHTHALMOLOGICAL SERVICES: MEDICAL EXAMINATION AND EVALUATION, WITH INITIATION OR CONTINUATION OF DIAGNOSTIC AND TREATMENT PROGRAM; INTERMEDIATE, ESTABLISHED PATIENT 017 DoD TELE ASSESS & MGT SRV PROV QUAL NONPHYS HLTH CARE PRO TO EST PAT,PARENT,GUARD NOT ORIG REL ASSESS & MGT SRV PROV W/IN PREV 7 DAYS NOR LEAD ASSESS & MGT SRV/PX W/IN NXT 24 HR/SOON APT;5-10 MIN MED DIS 016 DoD TELE ASSESS & MGT SRV PROV QUAL NONPHYS HLTH CARE PRO TO EST PAT,PARENT,GUARD NOT ORIG REL ASSESS & MGT SRV PROV W/IN PREV 7 DAYS NOR LEAD ASSESS & MGT SRV/PX W/IN NXT 24 HR/SOON APT;5-10 MIN MED DIS 014 DoD TELE ASSESS & MGT SRV PROV QUAL NONPHYS HLTH CARE PRO TO EST PAT,PARENT,GUARD NOT ORIG REL ASSESS & MGT SRV PROV W/IN PREV 7 DAYS NOR LEAD ASSESS & MGT SRV/PX W/IN NXT 24 HR/SOON APT;5-10 MIN MED DIS 014 DoD TELE ASSESS & MGT SRV PROV QUAL NONPHYS HLTH CARE PRO TO EST PAT,PARENT,GUARD NOT ORIG REL ASSESS & MGT SRV PROV W/IN PREV 7 DAYS NOR LEAD ASSESS & MGT SRV/PX W/IN NXT 24 HR/SOON APT;5-10 MIN MED DIS 014 DoD TELE ASSESS & MGT SRV PROV QUAL NONPHYS HLTH CARE PRO TO EST PAT,PARENT,GUARD NOT ORIG REL ASSESS & MGT SRV PROV W/IN PREV 7 DAYS NOR LEAD ASSESS & MGT SRV/PX W/IN NXT 24 HR/SOON APT;5-10 MIN MED DIS 014 DoD TELE ASSESS & MGT SRV PROV QUAL NONPHYS HLTH CARE PRO TO EST PAT,PARENT,GUARD NOT ORIG REL ASSESS & MGT SRV PROV W/IN PREV 7 DAYS NOR LEAD ASSESS & MGT SRV/PX W/IN NXT 24 HR/SOON APT;5-[address] MED DIS 013 [facility] VIS FUNCT SCREEN,AUTOMAT/SEMI- AUTOMAT BILAT QUANT DETERM VISUAL ACUITY,OCULAR ALIGN,COLOR VISION,PSEUDOISOCHRO MAT PLATES,& FIELD VIS (MAY INC ALL/SOME SCRN DETERM FOR CONTRAST SENSITIV,VIS UND GLARE) 013 [facility] Social History Combined list of available smoking, tobacco, and other social history from Department of Defense and Veterans Affairs facilities. Social History Type Response Date Comment Sourc e Sexual Orientation Ambula tory Pharmacy Gender identity Ambulator y Pharmacy Sex Representation Female (finding) Unknown Organization This section is an empty soc ial history section. [facility] Assessment and Plan Combined list of future care activities from Department of Defense and Veterans Affairs facilities (e.g., assessment and plan notes, appointments, orders, and referrals). Additional future care activities may be listed in the Plan of Care section. Result Assessment and Plan Date Source Assessment and Plan No data available for this section 03/23/2025 Ambulatory Pharmacy Functional Status Combined list of recent functional and cognitive assessments recorded at [employer] Functional [place] Measurement (FIM) Scale: 1 = Total Assistance (Subject = 0% +), 2 = Maximal Assistance (Subject = 25% +), 3 = Moderate Assistance (Subject = 50% +), 4 = Minimal Assistance (Subject = 75% +), 5 = Supervision, 6 = Modified [place] (Device), 7 = Complete [place] (Timely, Safely). Assessment Date/Time Source Assessment Type Assessment Skill Assessment Score Assessment Details No data available for this section
--- OUTSIDE RECORDS SUMMARY | 2025-03-23 17:44 | XMS_ITS | Encounter Summary ---
Author Organization [facility] Healthcare Address [address] [place] [address] Care Team Providers Care Route Cdl Driver Name Role Phone Ara Ball NP Primary Care Provider [phone] Jet Portillo MD Unavailable [phone] Cornelia Galvez RN Unavailable Unavailable Encounter Details Date Type Department Care Team (Late st Contact Info) Description 03/21/2025 Telephone [facility] Obstetrical Gynecology [address] [phone] Grady Willis MD [facility] [address] Social History Tobacco Use Types Packs/Day Years [...] or relatives? Once a week 03/02/2025 Attends [employer] Not on file 03/02 Active Member [...] staff should administer the PHQ-9) 0 03/02/2025 [facility] - Occupational Stress [...] things needed for daily living? No 03/02/2025 [place] Depression Scale Answer Date Recorded [place] Depression Scale Total 5 03/04/2025 The thought [...] any time in the past [facility], were you homeless or living in a [facility] (including now)? No 03/02/2025 Personal Safety Answer [...] on file documented as of this encounter Miscellaneous Notes * Telephone Encounter - Chepe Dubon MA - 03/21/2025 4:54 PM CDT OB patient. Mena sent qty 60 for nurtec odt. Insurance only allows certain qty's of this: they will approve 16 a month Is that qty good enough? 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
--- OUTSIDE RECORDS SUMMARY | 2025-03-23 17:49 | XMS_ITS | Continuity of Care Document ---
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 It does not include entries that were removed or entered in error. Problem Status Onset Date Problem Type Date of Resolution Comments Source fracture of phalanges of finger Active Condition Transcribed fro m ER encounter dated 09/22/13. DoD fracture of humerus distal end Inactive Condition [facility] visit for: laboratory Inactive Condition DoD visit for: 13+ year visit Active Condition DoD joint pain, localized in the knee Active Condition [facility] Observation For Suspected Condition Active Condition [facility] Parent Education: Active Condition DoD skin: rash [as Sx] Inactive Condition Do D cough Active Condition DoD allergic rhinitis Active Condition [facility] ganglion right foot Active Condition [facility] Outpatient Physician Consultation Active Condition DoD sinusitis acute Inactive Condition [facility] hydrarthrosis humerus / elbow right Active Condition [facility] visit for: refer patient without exam or treatment Inactive Condition [facility] stress incontinence Active Condition [facility] urinary tract infection Inactive Condition [facility] streptococcal infection group B Inactive Condition [facility] visit for: administrative purpose Inactive Condition Med already refilled by Dr Rainey. [facility] headache syndromes Active Condition B eing followed by [facility] neurology. Will cont the current medication dose. DoD migraine headache Active Condition [facility] viral syndrome Inactive Condition Home otc meds. If sx persist or worsend then rtc. [facility] sore throat acute Inactive Condition RS is [...] Known Allergies Drug allergy (disorder) active 10/29/2007 [facility] Immunizations Combined list of available immunizations from the Department of Defense and Veterans Affairs facilities. 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 Source influenza, injectable, quadrivalent, preservative free 2019 ALUL, () Not Given influenza , injectabl e, quadrival ent, preservat vaishali free DoD Influenza, injectable, MDCK, preservative free, quadrivalent 2018 ALUL, () Not Given Influenza , injectabl e, MDCK, preservat vaishali free, quadrival ent DoD Influenza, inj, MDCK, quadrivalent- pf 2017 zzLef t Arm [id number] Seqirus complet ed Influenza , inj, MDCK, quadrival ent-pf 09/04/17 Given Ambulat ory Pharmac y Influenza, injectable, Madin [place] Canine Kidney, preservative free, quadrivalent 1 2017 Unknown, Provider [id number] Seqirus (SEQ) complet ed Influenza , injectabl e, Madin [place] Canine Kidney, preservat vaishali free, quadrival ent DoD meningococcal A,C,Y,W-135 (MCV4P) 2015 zzLef t Arm [id number] sanofi pasteur complet ed meningoco ccal A,C,Y,W-1 35 (MCV4P) 05/03/16 Given Ambulat ory Pharmac y meningococcal polysaccharid e (groups A, C, Y and W-135) diphtheria toxoid conjugate vaccine (MCV4P) 1 2015 Unknown, Provider [id number] Sanofi Pasteur (PMC) complet ed meningoco ccal polysacch aride (groups A, C, Y and W-135) diphtheri a toxoid conjugate vaccine (MCV4P) [facility] influenza, injectable, quadrivalent- pf 2013 [facility] Arm [id number] ID Biomedical complet ed influenza , injectabl e, quadrival ent-pf 08/12/14 Given Ambulat ory Pharmac y meningococcal A,C,Y,W-135 (MCV4P) [facility] [id number] sanofi pasteur complet ed meningoco ccal A,C,Y,W-1 35 (MCV4P) 08/12/14 Given Ambulat ory Pharmac y tetanus, diphtheria, acellular pertu is [id number] GlaxoSmithKli ne complet ed tetanus, diphtheri a, acellular pertussis 08/12/14 Given Ambulat ory Pharmac y Hep A, pediatric, unspecified formul [facility] [id number] GlaxoSmithKli ne complet ed Hep A, pediatric , unspecifi ed formul 08/12/14 Given Ambulat ory Pharmac y varicella virus vaccine 2013 [facility] Arm [id number] Merck & Company Inc complet ed varicella virus vaccine 08/12/14 Given Ambulat ory Pharmac y varicella virus vaccine 1 2013 Unknown, Provider [id number] Merck (MSD) complet ed varicella virus vaccine DoD hepatitis A vaccine, pediatric dosage, unspecified formulation 1 2013 Unknown, Provider [id number] [facility] (SKB) complet ed hepatitis A vaccine, pediatric dosage, unspecifi ed formulati on DoD meningococcal polysaccharid e (groups A, C, Y and W-135) diphtheria toxoid conjugate vaccine (MCV4P) 1 2013 Unknown, Provider [id number] 114 Sanofi Pasteur (PMC) complet ed meningoco [...] influenza, seasonal, injectable-pf 2011 zzLef t Arm [id number] sanofi pasteur complet ed influenza , seasonal, injectabl e-pf 06/28/12 Given Ambulat ory Pharmac y Influenza, seasonal, injectable, preservative free 1 2011 Unknown, Provider [id number] 140 Willieofi Pasteur ([facility]) complet ed Influenza , seasonal, injectabl e, preservat vaishali free DoD influenza virus vaccine, live 2010 [id number] Medi[employer] Inc comple t ed influenza virus vaccine, live 08/16/11 Given Ambulat ory Pharmac y influenza virus vaccine, live, attenuated, for intranasal use 3 2010 Unknown, Provider [id number] 111 Fl[employer] Inc. (MED) complet ed influenza virus vaccine, [...] vaccine, whole virus 2005 zzLef t Arm [id number] 16 sanofi pasteur complet ed influenza virus vaccine, whole virus 07/18/06 Given Ambulat ory Pharmac y influenza virus vaccine, whole virus 1 2005 Unknown, Provider [id number] 16 Sanofi Pasteur (PMC) complet ed influenza virus vaccine, whole virus DoD influenza virus vaccine, whole virus 2004 zzLef t Arm [id number] 16 sanofi pasteur complet ed influenza virus vaccine, whole virus 08/01/05 Given Ambulat ory Pharmac y influenza virus vaccine, whole virus 1 2004 Unknown, Provider [id number] 16 Sanofi Pasteur ([facility]) complet ed influenza virus vaccine, whole virus [...] ADM Date DC Date Status Disposition Source [facility] Peds Neurology ) OUTPATIENT [id number] NEW PATIENT /SAW A GERMAN LAST/MO M WILL BRING MRI. DEMIAN RAINEY 03/09 Released w/o Limitations [facility] Peds Neurolo gy) [facility] EEG) OUTPATIENT [id number] [facility] DEMIAN RAINEY 03/10 [facility] w/[facility] Limitations [facility] EEG) [facility] Neurology ) TELE CONSULT [id number] Mom is calling back per your directi on DEMIAN RAINEY 03/14 [facility]) [facility] Peds Conscious Sedation) OUTPATIENT [id number] [place]ACH E AHLTA SYSTEM ADMINISTRA TOR 03/22 [facility] Peds Conscio us Sedatio n) [facility] Neurology ) TELE CONSULT [id number] test results DEMIAN RAINEY 03/28 [facility]) [facility] ) TELE CONSULT [id number] meds DEMIAN RAINEY 03/28 [facility] Primary Care) TELE CONSULT [id number] migrain e sorto tx. JOHNNY GIRARD 10/17 [facility] Primary Care) [facility] N Primary Care) OUTPATIENT [id number] ear infecti on JOHNNY GIRARD 12/16 [facility]ased w/o Limitations [facility] Primary Care) [facility] Neurology ) TELE CONSULT [id number] follow up DEMIAN RAINEY Jeff 01/09 [facility] Neu[facility]) [facility] Primary Care) TELE CONSULT [id number] med refill JOHNNY GIRARD 04/05 [facility] Primary Care) [facility] Primary Care) TELE CONSULT [id number] Med Refill JOHNNY GIRARD 07/04 [facility] Primary Care) [facility] Neurology ) TELE CONSULT [id number] contact ed by email for meds refill DEMIAN RAINEY Jeff 07/04 [facility]) [facility] N Primary Care) OUTPATIENT [id number] poss strep, fever, vomitti ng BESSIE WILLS 10/11 Released w/o Limitations [facility] Primary Care) [facility] N Primary Care) OUTPATIENT [id number] bladder probs LAKHWINDER LUGO 01/02 Released w/o Limitations [facility] N Primary Care) [facility] N Primary Care) TELE CONSULT [id number] Child Neurolo RASHEEDA RiceRamón Lawrence 01/04 [facility] N Primary Care) [facility] Medical Group(87 Pediatric s) TELE CONSULT [id number] Terri ce consult -[place] STOREY ENRIQUETA S 03/10 Referred for Appointment [facility] Medical Group(8 7 Pediatr ics) [facility](87 Pediatric s) TELE CONSULT [id number] PT Ortho CORDELIA ENRIQUETA S 03/14 Referred for Appointment [facility](8 7 Pediatr ics) [facility](87 Pediatric s) TELE CONSULT [id number] Referra l renewal /ZuriQUINCY Carter 03/[address] [facility] Group(8 7 Pediatr ics) [facility](87 Pediatric s) TELE CONSULT [id number] STEFANIE REFERRA L NEEDED BROKEN ARM/ JOEL Leyva 09/05 Referred for Appointment [facility] Group(8 7 Pediatr ics) [facility](87 Pediatric s) OUTPATIENT [id number] QUINCY Denton 10/25 Released w/o Limitations [facility] Medical [facility](8 7 Pediatr ics) [address] [place] [address]([address] [facility] Clinic 4) TELE CONSULT [id number] Notes Entered by: Dilip OLIVAREZ 30 Jan 2012 1405 ------- ------- ------- ------- -- Referra l to JOEL Suazo 01/29 Referred for Appointment [facility](8 7 [facility] 4) [facility](87 Pediatric s) TELE CONSULT [id number] Notes Entered by: Melinda QURESHI 07 May 2012 0811 ------- ------- ------- ------- -- stefanie Zarate referra l needed /// ANUJ PEARSON 05/07 Referred for Appointment [facility] Group(8 7 Pediatr ics) [facility](87 Pediatric s) OUTPATIENT [id number] MILAGROS Chow 08/24 Released w/o Limitations [facility](8 7 Pediatr ics) [facility](87 Pediatric s) TELE CONSULT [id number] Notes Entered by: JOEL MENDEZ 18 Sep 2012 0853 ------- ------- ------- ------- -- New A ortho JOEL Bocanegra 09/18 Referred for Appointment [facility](8 7 Pediatr ics) [facility](87 Pediatric s) TELE CONSULT [id number] Notes Entered by: JOEL MENDEZ 02 Oct 2012 1421 ------- ------- ------- ------- -- Renewal JOEL Bocanegra 10/02 Referred for Appointment [facility](8 7 Pediatr ics) [facility](87 Pediatric s) TELE CONSULT [id number] Notes Entered by: KYLIE MARTE 22 Nov 2012 1404 ------- ------- ------- ------- -- [facility]26 3 MILAGROS ACUNA 11/[address] [facility] Group(8 7 Pediatr ics) [facility](87 Pediatric s) OUTPATIENT [id number] lump on foot CLEMENTE BLACK 12/20 Released w/o Limitations [facility](8 7 Pediatr ics) [facility](87 Pediatric s) OUTPATIENT [id number] severe cough CLEMENTE BLACK 03/05 Released w/o Limitations [facility](8 7 Pediatr ics) [facility](87 Pediatric s) OUTPATIENT [id number] sores hands, feet mouth MILAGROS ACUNA 03/14 Released w/o Limitations [facility](8 7 Pediatr ics) [facility](87 Pediatric s) TELE CONSULT [id number] Notes Entered by: Melinda QUERSHI 18 Mar 2013 1255 ------- ------- ------- ------- -- Hand-fo angelica-logan h// ANUJ MELENDREZ 03/18 Released to Self Care [facility](8 7 Pediatr ics) [facility](87 Pediatric s) OUTPATIENT [id number] WELL CHECK MILAGROS ACUNA 03/27 Released w/o Limitations [facility](8 7 Pediatr ics) [facility](87 Pediatric s) TELE CONSULT [id number] Notes Entered by: ANUJ REEDER 28 Mar 2013 1033 ------- ------- ------- ------- -- 2nd opinion referra l for neurolo ANUJ Dyer 03/28 Referred for Appointment [facility](8 7 Pediatr ics) [facility](87 Pediatric s) TELE CONSULT [id number] Notes Entered by: ALVARADO ACUNA 29 Mar 2013 1512 ------- ------- ------- ------- -- Labs MILAGROS ACUNA 03/[address] [facility] Group(8 7 Pediatr ics) [facility](87 Pediatric s) TELE CONSULT [id number] Notes Entered by: Janie RYDER 13 Jun 2013 0912 ------- ------- ------- ------- -- Request ing out of [place] Orthope dic referra janie/ANUJ Edward 06/13 Referred for Appointment [facility] Group(8 7 Pediatr ics) [facility](87 Pediatric s) TELE CONSULT [id number] Notes Entered by: ANUJ REEDER 17 Jun 2013 0844 ------- ------- ------- ------- -- Ortho referra l- was out of area and now back [place] ANUJ REEDER 06/17 Released to Self Care [facility] Medical [facility](8 7 Pediatr ics) [facility](87 Pediatric s) TELE CONSULT [id number] Notes Entered by: Ramón RUSSELL 18 Jun 2013 1347 ------- ------- ------- ------- -- Referra janei Renewal Laurie cherry/BERNARDA Gaspar 06/18 Other Not Elsewhere Classified [facility](8 7 Pediatr ics) [facility](87 Pediatric s) TELE CONSULT [id number] Notes Entered by: ANUJ REEDER 16 Jul 2013 0734 ------- ------- ------- ------- -- EEG referANUJ Ayala 07/16 Referred for Appointment [facility] Group(8 7 Pediatr ics) [facility](87 Pediatric s) TELE CONSULT [id number] Notes Entered by: KYLIE MARTE 23 Jul 2013 1227 ------- ------- ------- ------- -- Network Results -NEURO- 06/09 CLEMENTE BLACK 07/[address] [facility] Group(8 7 Pediatr ics) [facility](87 Pediatric s) TELE CONSULT [id number] Notes Entered by: KYLIE MARTE 06 Aug 2013 0816 ------- ------- ------- ------- -- Network Results -ORTHO- 07/10 CLEMENTE BLACK 08/[address] [facility] Medical [facility](8 7 Pediatr ics) [facility] Group(87 Pediatric s) TELE CONSULT [id number] Notes Entered by: Sterling MORA 23 Sep 2013 0727 ------- ------- ------- ------- -- Ortho referra lima/BERNARDA Olvera 09/23 Other Not Elsewhere Classified [facility](8 7 Pediatr ics) [facility](87 Pediatric s) TELE CONSULT [id number] Notes Entered by: LIZETH SANCHES 24 Sep 2013 1112 ------- ------- ------- ------- -- ER results 09/22/19 14 CIARA RAMIREZ 09/[address] [facility] Group(8 7 Pediatr ics) [facility](87 Pediatric s) TELE CONSULT [id number] Notes Entered by: KYLIE MARTE 03 Oct 2013 1534 ------- ------- ------- ------- -- Network Results -NEUROL OGY-08/28 4 LUIS DANIEL AMARO 10/[address] [facility] Group(8 7 Pediatr ics) [address] [place] [address]( [facility]) TELE CONSULT [id number] Notes Entered by: LIZETH SANCHES 31 Oct 2013 1416 ------- ------- ------- ------- -- ER results 4 SAYDA PATEL 10/[address] [facility](8 7 [facility] 5) [facility]( [facility] 5) TELE CONSULT [id number] Notes Entered by: CIPRIANO HUTCHINSON 11 Nov 2013 0915 ------- ------- ------- ------- -- ER f/u concuss ion/wri st fractur e//SOLEDAD BASS 11/[address] [facility](8 7 [facility] 5) [facility]( [facility] 5) OUTPATIENT [id number] [facility] SOLEDAD Stanley 11/12 Released w/o Limitations [facility](8 7 [facility] 5) [facility]( [facility] 5) TELE CONSULT [id number] Notes Entered by: KYLIE MARTE 19 Nov 2013 1326 ------- ------- ------- ------- -- Network Results -ORTHO- 10/11 SAYDA PATEL 11/[address] [facility](8 7 [facility] 5) [address] [place] [address](87 [facility] 5) OUTPATIENT [id number] swollen knee SOLEDAD CHATMAN 11/28 Released w/o Limitations [facility]([address] [facility] 5) [facility]([address] [place] [address] 5) TELE CONSULT [id number] Notes Entered by: Laureano GIRARD 10 Dec 2013 1450 ------- ------- ------- ------- -- MRI results /PATEL CIARA ARCOS 12/[address] [facility]([address] [facility] 5) [facility]([address] [place] [address]) TELE CONSULT [id number] Notes Entered by: JOSE HO 18 Dec 2013 1621 ------- ------- ------- ------- -- Network results -larch- 12/09 PATEL, SAYDA Nichols 12/[address] [facility]([address] [facility] 5) [facility]([address] [place] [address]) TELE CONSULT [id number] Notes Entered by: ROSA LESLIE 05 Jan 2014 1032 ------- ------- ------- ------- -- Network Results -Ortho- 11/08 PATEL, SAYDA Nichols 01/[address] [facility]([address] [facility] 5) [facility]([address] [place] [address]) TELE CONSULT [id number] Notes Entered by: ILAN PARKER 06 Jan 2014 0907 ------- ------- ------- ------- -- Network Results -Ortho- 12/09 PATEL, SAYDA Nichols 01/[address] [facility] Group([address] [facility] 5) [facility]([address] [place] [address] 5) TELE CONSULT [id number] Notes Entered by: VAL CASTRO V 10 Jan 2014 1338 ------- ------- ------- ------- -- Network results -Radiol ogy-11/26 PATEL, SAYDA Q 01/[address] [facility](8 7 [facility] 5) [facility]([address] [place] [address] Clinic 4) TELE CONSULT [id number] Notes Entered by: BRYSON VASQUEZ 27 Jan 2014 1338 ------- ------- ------- ------- -- Network Results -Ortho- 01/08 SAYAD PATEL 01/[address] [facility]([address] [facility] 4) [facility]([address] [place] [address] 4) OUTPATIENT [id number] SOLEDAD Zamora 03/26 Released w/o Limitations [facility]([address] [facility] 4) [facility]([address] [place] [address] 4) TELE CONSULT [id number] Notes Entered by: JULIANN VALLADARES 01 Apr 2014 1202 ------- ------- ------- ------- -- Request ing Rx from [employer] [facility] for adoptio n home study PAULO NEAL 04/[address] [facility]([address] [facility] 4) [facility] Team Red) OUTPATIENT [id number] headach e/body aches FERNY COTO 04/21 Released w/o Limitations [address] [place] [address](8 7 [facility] Team Red) [address] [place] [address]([address] [place] [address] 4) TELE CONSULT [id number] Notes Entered by: Sterling MORA 24 Apr 2014 1425 ------- ------- ------- ------- -- Lab result/ CIARA Vaughan 04/[address] [facility]([address] [facility] 4) [facility] Team Red) TELE CONSULT [id number] Notes Entered by: FERNY COBB 02 May 2014 0653 ------- ------- ------- ------- -- Normal allergy screeni CHANCELLOR Sterling Amaya 05/[address] [facility](8 7 [facility] Team Red) [facility]([address] [place] [address] 4) OUTPATIENT [id number] joint pain SOLEDAD CHATMAN Janie 07/15 Released w/o Limitations [address] [place] [address]([address] [place] [address] 4) [address] [place] [address]([address] [place] [address]) TELE CONSULT [id number] Notes Entered by: ERIC BELTRE FIORELLA Lima 17 Jul 2014 1217 ------- ------- ------- ------- -- Xray f/u ERIC SPENCER 07/[address] [place] [address]([address] [place] [address] 4) [address] [place] [address]([address] [place] [address]) TELE CONSULT [id number] Notes Entered by: Janie RYDER 29 Jul 2014 0905 ------- ------- ------- ------- -- Request ing notes and x ray results faxed to [facility]/ JULIA Llanos 07/29 [address] [place] [address]([address] [place] [address]) [address] [place] [address]([address] [place] [address]) TELE CONSULT [id number] Notes Entered by: Sterling MORA 08 Aug 2014 1527 ------- ------- ------- ------- -- Urgent Care resferr JOEL Moseley 08/08 Referred for Appointment [address] [place] [address]([address] [place] [address]) [address] [place] [address]([address] [place] [address]) OUTPATIENT [id number] joint pain SAYDA PATEL 08/12 Released w/o Limitations [address] [place] [address]([address] [place] [address] 4) [address] [place] [address]([address] [place] [address]) TELE CONSULT [id number] Notes Entered by: Janie RYDER 14 Aug 2014 1104 ------- ------- ------- ------- -- Lab results /JOEL Cook 08/[address] [place] [address]([address] [place] [address] 4) [address] [place] [address]([address] [place] [address]) TELE CONSULT [id number] Notes Entered by: KAYLEE COOK 19 Aug 2014 1603 ------- ------- ------- ------- -- Normal lab results /Patel AN BRUNO KANCHAN 08/[address] [facility] Medical [facility]([address] [place] [address]) [address] [place] [address]([address] [place] [address]) TELE CONSULT [id number] Notes Entered by: TIFFANIE GREENE 06 Oct 2014 1008 ------- ------- ------- ------- -- Network Results - RHEUM 09/11 ANNA REYNA V 10/[address] [facility]([address] [place] [address]) [address] [place] [address]([facility] Team Blue) TELE CONSULT [id number] Notes Entered by: LIZETH SANCHES 07 Nov 2014 0936 ------- ------- ------- ------- -- ER results 11/07/19 15 ANNA REYNA V 11/[address] [place] [address]([address] [place] [address] Team Blue) [address] [place] [address]([address] [place], [place] [address]ate ) OUTPATIENT [id number] Notes Entered by: JULIANN VALLADARES 15 Jan 2015 1301 ------- ------- ------- ------- -- left ear pain PAULO NEAL 01/15 Released w/o Limitations [address] [place] [address]([address] [place] [address]) [address] [place] [address]([facility] Team Blue) TELE CONSULT [id number] Notes Entered by: NIXON HINES 27 Apr 2015 1257 ------- ------- ------- ------- -- Cough, congest ion/UC osmar lima/ROYER Morgan 04/[address] [place] [address]([address] [place] [address] Team Blue) [address] [place] [address]([facility] Team Blue) OUTPATIENT [id number] spots on back SHANIA SANTANA 08/10 Released w/o Limitations [address] [place] [address]([address] [place] [address] Team Blue) [address] [place] [address]([facility] Team Blue) TELE CONSULT [id number] Notes Entered by: Sterling MORA 22 Sep 2015 0955 ------- ------- ------- ------- -- Osmar lima /JOSE CRUZ Plasencia 09/[address] [facility](8 7 [facility] Team Blue) [facility](87 [facility] Team Blue) OUTPATIENT [id number] SHAINA Guevara 10/19 Released w/o Limitations [facility](8 7 [facility] Team Blue) [facility](87 [facility] Team Blue) OUTPATIENT [id number] SHAINA Salazar 11/09 Released w/o Limitations [facility](8 7 [facility] Team Blue) [facility](87 [facility] Team Blue) TELE CONSULT [id number] Notes Entered by: KAYLEE COOK 18 Jan 2016 0827 ------- ------- ------- ------- -- Maryann/KAYLEE Oviedo 01/17 Released to Self Care [facility](8 7 [facility] Team Blue) 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(8 7 Pediatr ics) [facility](87 Pediatric s) TELE CONSULT [id number] Notes Entered by: PRIYANKA THOMAS 28 Apr 2016 1338 ------- ------- ------- ------- -- Timo dilip lima/PRIYANKA Torrez 04/28 Immediate Referral [facility](8 7 Pediatr ics) [facility](87 [facility] Team White) TELE CONSULT [id number] Notes Entered by: MARILEE LOPEZ 15 Jul 2016 1414 ------- ------- ------- ------- -- please see ER results in [facility] [id number] ROSALIO PASCUAL 07/[address] [facility] Group(8 7 [facility] Team White) [facility](87 [facility] Team White) OUTPATIENT [id number] Joint pain/el bow/wri st/knee pain ROSALIO PASCUAL 10/14 Released w/o Limitations [facility](8 7 [facility] Team White) [facility](87 [facility] Team White) TELE CONSULT [id number] Notes Entered by: ROSALIO ZAPATA 21 Oct 2016 1414 ------- ------- ------- ------- -- Lab results DELIA RAYA 10/21 Other Not Elsewhere Classified [facility](8 7 [facility] Team White) [facility]( [facility]) OUTPATIENT [id number] Notes Entered by: MANOJ QUESADA 31 Oct 2016 1038 ------- ------- ------- ------- -- TAM Ken 10/31 Released w/o Limitations [facility](8 7 Optomet ry Clinic) [facility](87 [facility] Team Red) TELE CONSULT [id number] Notes Entered by: OMAYRA JONES 01 Nov 2016 1600 ------- ------- ------- ------- -- Network Results - NEURO- 10/28/16 ROSALIO PASCUAL 11/[address] [facility](8 7 [facility] Team Red) [facility](87 [facility]) TELE CONSULT [id number] Notes Entered by: MANOJ QUESADA 10 Nov 2016 1348 ------- ------- ------- ------- -- No show MANOJ ISBELL 11/10 Other Not Elsewhere Classified [facility](8 7 Optomet ry Clinic) [facility](87 [facility] Team White) TELE CONSULT [id number] Notes Entered by: KATHY MENDOZA T 19 Dec 2016 1010 ------- ------- ------- ------- -- Sore throat/ fever/D TG Auguste N 12/19 Released w/o Limitations 87 [facility](8 7 [facility] Team White) 87 [facility](87 [facility] Team White) OUTPATIENT [id number] Notes Entered by: ALBINO KRAUSE 19 Dec 2016 1428 ------- ------- ------- ------- -- THROAT PAIN TG KELLEY 12/19 Released w/o Limitations 87 [facility](8 7 [facility] Team White) [facility])(Sco tt Peds Team Julia) OUTPATIENT [id number] school/ sports physica l / KEYSHAWN ARAUZ 03/28 Released w/o Limitations [facility])(S cott Peds Team Julia) [facility])(Sco tt Peds Team Julia) TELE CONSULT [id number] Notes Entered by: Sterling CISNEROS 28 Mar 2017 1334 ------- ------- ------- ------- -- Tylenol RX and DERM LELO Jones 03/[address] [place] [address] Group [facility])(S cott Peds Team Julia) [facility])(Nvo tt Peds Team Julia) TELE CONSULT [id number] Notes Entered by: Janie CAMPO 03 Apr 2017 1459 ------- ------- ------- ------- -- FYI: jonna/ALTAGRACIA Jean Baptiste 04/03 Advice Assessment [facility])(S cott Peds Team Julia) [address] [place] [address] Group Kt [facility])(Sco tt Peds Team Julia) TELE CONSULT [id number] Notes Entered by: JORGE PAZ 09 Jun 2017 1057 ------- ------- ------- ------- -- Network Results -NEUROL OGY 05/29/17 ROSALIND GUSMAN 06/[address] [place] [address])(S manoj Boss Team Julia) [address] [place] [address])(War rior Op Med Cln Tm A Ad) OUTPATIENT [id number] Cough/r unny nose/he adeache /fever/ congest ion [id number] RONA BRADY 10/02 Released w/o Limitations [address] [place] [address])(W arrior Op Med Cln Tm A Ad) [address] [place] [address])(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) TELE CONSULT [id number] Notes Entered by: SOPHY MACEDO 18 Jul 2018 0926 ------- ------- ------- ------- -- SX - Lump in Right Breast / [phone] - JUAREZ Wing 07/18 Referred for Appointment [address] [place] [address])(G ynecolo gy) [address] [place] [address])(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) OUTPATIENT [id number] 9 breast lump (r) [phone] ANIKET GE 07/31 Released w/o Limitations [address] [place] [address])(G ynecolo gy) [address] [place] [address])(War rior Op Med Cln Tm A Ad) TELE CONSULT [id number] Notes Entered by: MIKE KAUR 05 Oct 2018 1546 ------- ------- ------- ------- -- Optomet kimberly Suarez / Emre / - HOLLY Dorsey 10/05 Other Not Elsewhere Classified [address] [place] [address])(W 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 Procedure Procedure Type Code Date Perfomer Comments Sourc e No data available for this section Ambulato ry Pharmacy Non-Physician Phone Call To Patient/Provider Brief (5-10min) Non-Physician Phone Call To Patient/Provider Brief (5-10min) [id number] [facility] Non-Physician Phone Call To Patient/Provider Brief (5-10min) Non-Physician Phone Call To Patient/Provider Brief (5-10min) [id number] [facility] Non-Physician Phone Call To Patient/Provider Brief (5-10min) Non-Physician Phone Call To Patient/Provider Brief (5-10min) [id number] [facility] Non-Physician Phone Call To Pt/Provider Intermed (11-20 min) Non-Physician Phone Call To Pt/Provider Intermed (11-20 min) [id number] [facility] Non-Physician Phone Call To Patient/Provider Brief (5-10min) Non-Physician Phone Call To Patient/Provider Brief (5-10min) [phone] [facility] Ophthalmological Prior Patient Start Intermediate Level Care Ophthalmological Prior Patient Start Intermediate Level Care [phone] [facility] Non-Physician Phone Call To Patient/Provider Brief (5-10min) Non-Physician Phone Call To Patient/Provider Brief (5-10min) [id number] JOSE CRUZ [facility] Non-Physician Phone Call To Patient/Provider Brief (5-10min) Non-Physician Phone Call To Patient/Provider Brief (5-10min) [id number] [phone] ERIC SPENCER [facility] Non-Physician Phone Call To Patient/Provider Brief (5-10min) Non-Physician Phone Call To Patient/Provider Brief (5-10min) [phone] KANCHAN ANNE [facility] Non-Physician Phone Call To Patient/Provider Brief (5-10min) Non-Physician Phone Call To Patient/Provider Brief (5-10min) [phone] KANCHAN ANNE [facility] Non-Physician Phone Call To Patient/Provider Brief (5-10min) Non-Physician Phone Call To Patient/Provider Brief (5-10min) [phone] [facility] Non-Physician Phone Call To Patient/Provider Brief (5-10min) Non-Physician Phone Call To Patient/Provider Brief (5-10min) [phone] [facility] Visual Function Screening Visual Function Screening [phone] [facility] POLIOVIRUS VACCINE, INACTIVATED (IPV), FOR SUBCUTANEOUS OR INTRAMUSCULAR USE 005 [facility] INJECTION, MIDAZOLAM HCL, PER [address] [facility] INTRAVENOUS INFUSION FOR THERAPY/DIAGNOSIS, ADMINISTERED BY PHYSICIAN OR UNDER DIRECT SUPERVISION OF PHYSICIAN; UP TO ONE HOUR 005 [facility] MEDICAL CONFERENCE BY A PHYSICIAN WITH INTERDISCIPLINARY [...] HR/SOON APT;5-10 MIN MED DIS 017 [facility] OPHTHALMOLOGICAL SERVICES: MEDICAL EXAMINATION AND EVALUATION, WITH [...] HR/SOON APT;5-10 MIN MED DIS 013 [facility] VIS FUNCT SCREEN,AUTOMAT/SEMI- AUTOMAT BILAT QUANT DETERM VISUAL ACUITY,OCULAR ALIGN,COLOR VISION,PSEUDOISOCHRO MAT PLATES,& FIELD VIS (MAY INC ALL/SOME SCRN DETERM FOR CONTRAST SENSITIV,VIS UND GLARE) 013 [facility] Social History Combined list of available smoking, tobacco, and other social history from Department of Defense and Veterans Affairs facilities. Social History Type Response Date Comment Sourc e Sexual Orientation Ambula tory Pharmacy Gender identity Ambulator y Pharmacy Sex Representation Female (finding) Unknown Organization This section is an empty soc ial history section. [facility] Assessment and Plan Combined list of future [...] of Defense and Veterans Affairs (VA).VA Functional Mower Measurement (FIM) Scale: 1 = Total Assistance (Subject = 0% +), 2 = Maximal Assistance (Subject = 25% +), 3 = Moderate Assistance (Subject = 50% +), 4 = Minimal Assistance (Subject = 75% +), 5 = Supervision, 6 = Modified Mower (Device), 7 = Complete Mower (Timely, Safely). Assessment Date/Time Source Assessment Type Assessment Skill Assessment Score Assessment Details No data available for this section
[2025-03-23 17:53] VITALS: BP 109/78; PULSE 98; RESP 18; TEMP 35.9; O2SAT 98
== END 2025-03-23 18:07 | disposition home or self-care (01) ==
PROVIDERS: Emergency Provider Nurse Practitioner Family; PCP Nurse Practitioner
DX: K04.7 Periapical abscess without sinus (principal)
CPT/HCPCS: 99213; G0463